=== PATIENT | female | born 1950 | race Caucasian/White ===

== ENCOUNTER → 2017-02-20 | Day surgery (SDC) | payer BC ==
[~2017-02-20] VITALS: Ht 172.7 cm; Wt 143.8 kg
[~2017-02-20] MED LIST: ACETAZOLAMIDE250 MG PO; ASPIRIN325 MG PO; Apixaban PO; BACTRIM DS TAB1 EACH PO; COMBIVENT RESPIM4 GM IH; EDARBI40 MG PO; FENTANYL CITRATE/PF 100MCG/2 ML INJ ONE; FLECAINIDE ACE100 MG PO; FUROSEMIDE40 MG PO; GLIMEPIRIDE4 MG PO; HEPARIN SOD/SOD CHLORIDE 2,000 ML ONE; HYDRALAZINE HCL50 MG PO; IOPAMIDOL 370 MG/ML 200 ML INFUS..BTL INJ ONE; KEFLEX500 MG PO; LIDOCAINE HCL 2% LOCAL 20 ML VIAL ONE; LISINOPRIL10 MG PO; METOPROLOL TART50 MG PO; MIDAZOLAM HCL 2 MG/2 ML VIAL ONE; PANTOPRAZOLE SO40 MG PO; POTASSIUM CHLO20 ME1 PO; SODIUM CHLORIDE 0.9% 500ML 500 ML ONE; THEOPHYLLINE A200 MG PO; Z.0.MACROBID 100 M10 MT; [UNRECOGNIZED DRUG - OTHER] MT
[2017-02-20 09:01] VITALS: BP 144/66
[2017-02-20 10:38] VITALS: BP 132/60
--- NOTE | 2017-03-03 14:13 | Diagnostic Imaging Report ---
PROCEDURE:IVC filter retrieval. COMPARISON:None. INDICATIONS:IVC filter. FINDINGS:The right neck was prepped and draped in the usual sterile fashion. 1% lidocaine was infused into the subcutaneous tissues for local anesthesia. Utilizing direct sonographic guidance, a 21 gauge needle was advanced into the right internal jugular vein. A 0.08 inch wire was advanced centrally. An access sheath was placed over the wire to secure the vascular access. The wire was upsized to a 0.035 inch wire. A catheter was advanced over the wire. The catheter was advanced into the inferior vena cava utilizing fluoroscopic guidance. A digital subtraction venogram was performed. No thrombus was noted within the inferior vena cava. A sheath was placed over the wire. A snare catheter was utilized to snare the inferior vena cava filter. Snaring and removal of the filter was performed under direct fluoroscopic guidance. Physical evaluation of the catheter demonstrated an intact IVC filter. A venogram was performed after the filter was removed. No extravasation of contrast was noted. The sheath was removed. Hemostasis was obtained with manual compression. A sterile dressing was applied. No immediate complications. The patient tolerated the procedure well. The patient was transferred to the post procedure area in stable unchanged condition for further monitoring. CONCLUSION: Successful removal of the inferior vena cava filter utilizing ultrasound and fluoroscopic guidance. Dictated by: Johnny Kaufman M.D. on 03/03/2017 at 14:22 Electronically approved by: Johnny Kaufman M.D. on 03/03/2017 at 14:22
== END | disposition home or self-care (01) ==
LOC: CATH LAB 07:54 → EDSTATUS 10:00
PROVIDERS: ATTEND Radiology Diagnostic Radiology
DX: Z45.89 Encounter for adjustment and management of other implanted devices (principal); I26.99 Other pulmonary embolism without acute cor pulmonale
CPT/HCPCS: 36415; 37193; 77002; 82948; C1769; J2001; J2250; J7040; Q9967; 36010

== ENCOUNTER 2017-12-02 15:19 | Inpatient (IN) | payer MEDICARE, BC ==
[~2017-12-02] VITALS: Ht 172.7 cm; Wt 132.9 kg
[2017-12-02] MEDS: ALBUTEROL/IPRATROPIUM 3 ML NEB NEB SCH (00:20)
[~2017-12-02 15:19] MED LIST changes: -FENTANYL CITRATE/PF 100MCG/2 ML INJ ONE; -HEPARIN SOD/SOD CHLORIDE 2,000 ML ONE; -IOPAMIDOL 370 MG/ML 200 ML INFUS..BTL INJ ONE; -LIDOCAINE HCL 2% LOCAL 20 ML VIAL ONE; -MIDAZOLAM HCL 2 MG/2 ML VIAL ONE; -SODIUM CHLORIDE 0.9% 500ML 500 ML ONE
[2017-12-02 17:07] LABS: BASOPHILS % 0.3 % (0.0-1.0); EOSINOPHILS # (AUTO) 0.1 (0.0-0.4); EOSINOPHILS % 1.8 % (0.0-6.0); HEMATOCRIT 39.2 % (34.2-44.1); HEMOGLOBIN 11.1 g/dL (12.0-16.0); LYMPHOCYTES # (AUTO) 0.6 (1.0-3.2); LYMPHOCYTES % 8.8 % (18.0-39.1); MEAN CORPUSCULAR HEMOGLOBIN 24.8 pg (28-32); MEAN CORPUSCULAR HGB CONC 28.3 g/dL (31-35); MEAN CORPUSCULAR VOLUME 87.7 fL (81-99); MONOCYTES % 15.3 % (4.4-11.3); NEUTROPHILS # (AUTO) 4.6 (2.1-6.9); NEUTROPHILS % 73.5 % (38.7-80.0); PLATELET COUNT 170 x10e3/uL (140-360); RED BLOOD COUNT 4.47 x10e6/uL (3.6-5.1); RED CELL DISTRIBUTION WIDTH 15.5 % (11.7-14.4)
[2017-12-02 17:28] LABS: ALBUMIN 3.6 g/dL (3.5-5.0); ANION GAP 14.5 mmol/L (8-16); CALCIUM 9.4 mg/dL (8.4-10.2); CREATININE, SERUM 1.19 mg/dL (0.57-1.11); POTASSIUM 4.5 mmol/L (3.5-5.1)
[2017-12-02] MEDS ORDERED: SODIUM CHLORIDE FLUSH 10 ML SYR INJ PRN (17:45)
[2017-12-02] MEDS ORDERED: FUROSEMIDE INJ 10 MG/ML 4 ML VIAL IV ONE (17:45)
[2017-12-02] MEDS ORDERED: ASPIRIN 81 MG CHEW TAB PO ONE (17:45)
[2017-12-02] MEDS ORDERED: ALBUTEROL/IPRATROPIUM 3 ML NEB NEB ONE (17:45)
[2017-12-02 18:28] LABS: CREATINE KINASE MB 0.9 ng/mL (0-5.0)
[2017-12-02] MEDS ORDERED: ENOXAPARIN SOD INJ 40 MG/0.4 ML SYR SC SCH (18:30)
--- NOTE | 2017-12-02 18:33 | Diagnostic Imaging Report ---
EXAMINATION: PA and lateral views of the chest. COMPARISON: None CLINICAL HISTORY: Pneumonia cough DISCUSSION: Lines/tubes: None. Lungs: Consolidation versus nodule in the right midlung measuring 2.2 cm. Pleura: Central pulmonary venous congestion. Heart and mediastinum: Heart size enlarged. Bones and soft tissues: No acute bony abnormalities. Degenerative changes in the thoracic spine IMPRESSION: Focal pneumonia versus nodule right midlung. Follow-up imaging recommended after treatment. Mild cardiomegaly. Signed by: Dr. Alexander Carrillo M.D. on 12/02/2017 6:30 PM
[2017-12-02] MEDS: CEFTAROLINE FOSAMIL ACETATE 400 MG in SODIUM CHLORIDE 0.9% 250ML 250 ML IV SCH (18:45)
[2017-12-02 19:26] LABS: BILIRUBIN,URINE NEGATIVE (NEGATIVE); CLARITY,URINE SL CLOUDY (CLEAR); COLOR,URINE YELLOW (YELLOW); KETONES,URINE NEGATIVE (NEGATIVE); LEUKOCYTE ESTERASE ,URINE TRACE (NEGATIVE); NITRITE,URINE NEGATIVE (NEGATIVE); PROTEIN,URINE DIPSTICK TRACE (NEGATIVE); URINE UROBILINOGEN 0.2 mg/dL (0.2 - 1)
[2017-12-02 19:32] LABS: INR 1.16; PROTHROMBIN TIME 15.8 seconds (11.9-14.5)
[2017-12-02 19:33] LABS: PARTIAL THROMBOPLASTIN TIME 31.9 seconds (23.8-35.5)
[2017-12-02 19:43] LABS: BACTERIA,URINE MODERATE /HPF; EPITHELIAL CELLS,URINE MODERATE /LPF; TRANSITIONAL EPI CELLS,URINE FEW
[2017-12-02 21:40] VITALS: BP 146/65
[2017-12-02 22:00] VITALS: BP 146/65
[2017-12-03] VITALS (8 sets, daily range): BP systolic 119–168; BP diastolic 56–70
[2017-12-03 01:19] LABS: CREATINE KINASE 40 IU/L (29-168)
[2017-12-03] MEDS ORDERED: POTASSIUM CHLO10 MEQ PO (03:16)
[2017-12-03] MEDS ORDERED: CIPRO500 MG PO (03:21)
[2017-12-03] MEDS: ALBUTEROL/IPRATROPIUM 3 ML NEB NEB SCH ×6 (03:30→22:55)
[2017-12-03 05:28] LABS: ALBUMIN 3.3 g/dL (3.5-5.0); ALBUMIN/GLOBULIN RATIO 1.1 (0.8-2.0); ANION GAP 13.7 mmol/L (8-16); CALCIUM 8.9 mg/dL (8.4-10.2); CREATININE, SERUM 1.17 mg/dL (0.57-1.11); POTASSIUM 3.7 mmol/L (3.5-5.1)
[2017-12-03 06:07] LABS: CREATINE KINASE MB 0.7 ng/mL (0-5.0)
[2017-12-03 07:23] LABS: BASOPHILS % 0.4 % (0.0-1.0); EOSINOPHILS # (AUTO) 0.1 (0.0-0.4); EOSINOPHILS % 1.8 % (0.0-6.0); HEMATOCRIT 36.1 % (34.2-44.1); HEMOGLOBIN 10.3 g/dL (12.0-16.0); LYMPHOCYTES # (AUTO) 0.6 (1.0-3.2); LYMPHOCYTES % 11.6 % (18.0-39.1); MEAN CORPUSCULAR HEMOGLOBIN 24.8 pg (28-32); MEAN CORPUSCULAR HGB CONC 28.5 g/dL (31-35); MONOCYTES % 17.8 % (4.4-11.3); NEUTROPHILS # (AUTO) 3.7 (2.1-6.9); PLATELET COUNT 130 x10e3/uL (140-360); RED BLOOD COUNT 4.15 x10e6/uL (3.6-5.1); RED CELL DISTRIBUTION WIDTH 15.8 % (11.7-14.4)
[2017-12-03] MEDS: FUROSEMIDE 40 MG TAB PO SCH (08:21)
[2017-12-03] MEDS: APIXABAN 5 MG TABLET PO SCH ×2 (08:21→17:00)
[2017-12-03] MEDS: POTASSIUM CHLORIDE 10MEQ EA PO SCH (08:21)
[2017-12-03] MEDS: METOPROLOL TARTRATE 50 MG TAB PO SCH ×2 (08:21→16:53)
[2017-12-03 08:33] LABS: HYPOCHROMASIA MODERATE; PLATELET ESTIMATE ADEQUATE; PLATELET MORPHOLOGY COMMENT NORMAL; RBC MORPHOLOGY COMMENT NORMAL
[2017-12-03] MEDS ORDERED: AZILSARTAN MEDOXOMIL 40 MG PO SCH (09:00)
[2017-12-03] MEDS ORDERED: NON-FORMULARY MEDICATION ([Apixaban] 5 MG) PO SCH (09:00)
[2017-12-03] MEDS: FLECAINIDE ACETATE 100 MG TAB PO SCH ×2 (09:21→22:02)
[2017-12-03] MEDS ORDERED: SODIUM CHLORIDE 0.9% 250ML 250 ML ONE (09:55)
[2017-12-03] MEDS: CEFTAROLINE FOSAMIL ACETATE 400 MG in SODIUM CHLORIDE 0.9% 250ML 250 ML IV SCH ×2 (10:06→21:00)
--- NOTE | 2017-12-03 12:36 | Diagnostic Imaging Report ---
EXAM: XR CHEST 2 VIEWS DATE: 12/03/2017 5:00 AM INDICATION: Pneumonia COMPARISON: 12/02/2017, no report available FINDINGS: Lines and Tubes: None Heart and Mediastinum: The heart is prominent. Lungs and Pleura: Minimal opacities present lung bases, asymmetric to the left, with small left effusion. Superimposed nodular opacity right midlung. Bones and Soft Tissues: No acute findings. IMPRESSION: 1. Minimal asymmetric to the left basilar opacities with small left effusion and nodular opacity right midlung. Findings may correspond with clinical history of pneumonia. Given nodularity of density right midlung, close radiographic follow-up recommended as pulmonary nodule not excluded. Signed by: Dr. Jesús Lilly MD on 12/03/2017 12:32 PM
[2017-12-03] MEDS: AZILSARTAN MEDOXOMIL 40 MG PO SCH (22:00)
[2017-12-04] VITALS (7 sets, daily range): BP systolic 122–155; BP diastolic 57–69
[2017-12-04] MEDS: ALBUTEROL/IPRATROPIUM 3 ML NEB NEB SCH ×6 (02:45→23:20)
[2017-12-04] MEDS: FLECAINIDE ACETATE 100 MG TAB PO SCH ×2 (08:30→20:00)
[2017-12-04] MEDS: BALSAM PERU/CASTOR OIL 5 GM OINT...G. TP SCH (09:00)
[2017-12-04] MEDS: APIXABAN 5 MG TABLET PO SCH (09:01)
[2017-12-04] MEDS: FUROSEMIDE 40 MG TAB PO SCH (09:01)
[2017-12-04] MEDS: CEFTAROLINE FOSAMIL ACETATE 400 MG in SODIUM CHLORIDE 0.9% 250ML 250 ML IV SCH ×2 (09:01→21:54)
[2017-12-04] MEDS: POTASSIUM CHLORIDE 10MEQ EA PO SCH (09:01)
[2017-12-04] MEDS: METOPROLOL TARTRATE 50 MG TAB PO SCH ×2 (09:02→17:12)
[2017-12-04] MEDS: AZILSARTAN MEDOXOMIL 40 MG PO SCH (21:54)
[2017-12-05] VITALS (7 sets, daily range): BP systolic 105–152; BP diastolic 52–67
[2017-12-05] MEDS: ALBUTEROL/IPRATROPIUM 3 ML NEB NEB SCH ×6 (03:30→23:20)
[2017-12-05] MEDS: AZITHROMYCIN 500MG/NS 250 ML 250 ML IV SCH (06:23)
[2017-12-05] MEDS: FUROSEMIDE 40 MG TAB PO SCH (09:14)
[2017-12-05] MEDS: POTASSIUM CHLORIDE 10MEQ EA PO SCH (09:14)
[2017-12-05] MEDS: FLECAINIDE ACETATE 100 MG TAB PO SCH ×2 (09:14→20:00)
[2017-12-05] MEDS: APIXABAN 5 MG TABLET PO SCH (09:14)
[2017-12-05] MEDS: CEFTAROLINE FOSAMIL ACETATE 400 MG in SODIUM CHLORIDE 0.9% 250ML 250 ML IV SCH ×2 (09:14→21:24)
[2017-12-05] MEDS: BALSAM PERU/CASTOR OIL 5 GM OINT...G. TP SCH (09:14)
[2017-12-05] MEDS ORDERED: BENZONATATE 100 MG CAP PO PRN (10:45)
[2017-12-05] MEDS: METOPROLOL TARTRATE 50 MG TAB PO SCH ×2 (12:00→16:53)
[2017-12-05] MEDS: AZILSARTAN MEDOXOMIL 40 MG PO SCH (21:00)
[2017-12-05] MEDS ORDERED: SODIUM CHLORIDE 0.9% 250ML 250 ML ONE (21:23)
[2017-12-06 00:27] VITALS: BP 124/59
[2017-12-06] MEDS: ALBUTEROL/IPRATROPIUM 3 ML NEB NEB SCH ×6 (02:57→23:09)
[2017-12-06 05:39] VITALS: BP 133/66
[2017-12-06] MEDS: AZITHROMYCIN 500MG/NS 250 ML 250 ML IV SCH (05:44)
[2017-12-06 08:00] VITALS: BP 135/61
[2017-12-06] MEDS: FLECAINIDE ACETATE 100 MG TAB PO SCH ×2 (09:01→21:00)
[2017-12-06] MEDS: FUROSEMIDE INJ 10 MG/ML 4 ML VIAL IV SCH ×2 (09:01→21:10)
[2017-12-06] MEDS: APIXABAN 5 MG TABLET PO SCH (09:01)
[2017-12-06] MEDS: BALSAM PERU/CASTOR OIL 5 GM OINT...G. TP SCH (09:02)
[2017-12-06] MEDS: POTASSIUM CHLORIDE 10MEQ EA PO SCH (09:02)
[2017-12-06] MEDS: METOPROLOL TARTRATE 50 MG TAB PO SCH ×2 (09:02→17:03)
[2017-12-06] MEDS: CEFTAROLINE FOSAMIL ACETATE 400 MG in SODIUM CHLORIDE 0.9% 250ML 250 ML IV SCH ×2 (10:02→21:10)
[2017-12-06 12:00] VITALS: BP 132/63
[2017-12-06 16:00] VITALS: BP 124/56
[2017-12-06 20:00] VITALS: BP 144/59
[2017-12-06] MEDS: AZILSARTAN MEDOXOMIL 40 MG PO SCH (21:10)
[2017-12-07] VITALS (7 sets, daily range): BP systolic 116–144; BP diastolic 56–75
[2017-12-07] MEDS: ALBUTEROL/IPRATROPIUM 3 ML NEB NEB SCH ×6 (02:21→23:17)
[2017-12-07 05:07] LABS: BASOPHILS % 0.6 % (0.0-1.0); EOSINOPHILS # (AUTO) 0.2 (0.0-0.4); EOSINOPHILS % 3.3 % (0.0-6.0); HEMATOCRIT 35.1 % (34.2-44.1); HEMOGLOBIN 10.1 g/dL (12.0-16.0); LYMPHOCYTES # (AUTO) 0.6 (1.0-3.2); LYMPHOCYTES % 11.1 % (18.0-39.1); MEAN CORPUSCULAR HEMOGLOBIN 25.1 pg (28-32); MEAN CORPUSCULAR HGB CONC 28.8 g/dL (31-35); MEAN CORPUSCULAR VOLUME 87.1 fL (81-99); MONOCYTES # (AUTO) 0.7 (0.2-0.8); MONOCYTES % 13.3 % (4.4-11.3); NEUTROPHILS # (AUTO) 3.7 (2.1-6.9); NEUTROPHILS % 71.5 % (38.7-80.0); PLATELET COUNT 143 x10e3/uL (140-360); RED BLOOD COUNT 4.03 x10e6/uL (3.6-5.1); RED CELL DISTRIBUTION WIDTH 15.6 % (11.7-14.4)
[2017-12-07 05:30] LABS: ANION GAP 15.1 mmol/L (8-16); CALCIUM 8.9 mg/dL (8.4-10.2); CREATININE, SERUM 1.13 mg/dL (0.57-1.11); POTASSIUM 4.1 mmol/L (3.5-5.1)
[2017-12-07] MEDS: AZITHROMYCIN 500MG/NS 250 ML 250 ML IV SCH (05:33)
--- NOTE | 2017-12-07 08:26 | Diagnostic Imaging Report ---
EXAM: XR CHEST 2 VIEWS DATE: 12/07/2017 7:11 AM INDICATION: Pneumonia, CHF COMPARISON: 12/03/2017, no report available FINDINGS: Lines and Tubes: None Heart and Mediastinum: Heart enlarged. Aortic vascular calcifications. Lungs and Pleura: Bibasilar opacities suggesting atelectasis, edema, and/or pneumonia, slightly progressed, particularly on the right. Bones and Soft Tissues: No acute findings. IMPRESSION: 1. Bibasilar opacities as above, slightly worse on the right. Signed by: Dr. Jesús Lilly MD on 12/07/2017 8:23 AM
[2017-12-07] MEDS: APIXABAN 5 MG TABLET PO SCH (09:11)
[2017-12-07] MEDS: METOPROLOL TARTRATE 50 MG TAB PO SCH ×2 (09:11→16:24)
[2017-12-07] MEDS: POTASSIUM CHLORIDE 10MEQ EA PO SCH (09:11)
[2017-12-07] MEDS: BALSAM PERU/CASTOR OIL 5 GM OINT...G. TP SCH (09:11)
[2017-12-07] MEDS: FUROSEMIDE INJ 10 MG/ML 4 ML VIAL IV SCH ×2 (09:11→20:46)
[2017-12-07] MEDS: CEFTAROLINE FOSAMIL ACETATE 400 MG in SODIUM CHLORIDE 0.9% 250ML 250 ML IV SCH ×2 (09:11→20:46)
[2017-12-07] MEDS: FLECAINIDE ACETATE 100 MG TAB PO SCH ×3 (09:11→20:46)
[2017-12-07] MEDS: GUAIFENESIN 600 MG TAB PO SCH ×3 (11:21→23:55)
[2017-12-07] MEDS: AZILSARTAN MEDOXOMIL 40 MG PO SCH (20:46)
[2017-12-07] MEDS ORDERED: SODIUM CHLORIDE 0.9% 250ML 250 ML ONE (21:01)
[2017-12-08] VITALS (8 sets, daily range): BP systolic 114–143; BP diastolic 56–75
[2017-12-08] MEDS: ALBUTEROL/IPRATROPIUM 3 ML NEB NEB SCH ×6 (03:20→23:30)
[2017-12-08] MEDS: GUAIFENESIN 600 MG TAB PO SCH ×4 (05:13→23:37)
[2017-12-08] MEDS: AZITHROMYCIN 500MG/NS 250 ML 250 ML IV SCH (05:13)
[2017-12-08 06:00] LABS: ANION GAP 13.2 mmol/L (8-16); CREATININE, SERUM 1.29 mg/dL (0.57-1.11); POTASSIUM 4.2 mmol/L (3.5-5.1)
[2017-12-08] MEDS ORDERED: ACETYLCYSTEINE 20% INHAL SOLN 30 ML VIAL INH SCH (06:00)
[2017-12-08] MEDS: ACETYLCYSTEINE 20% INHAL SOLN 30 ML VIAL INH SCH ×3 (07:23→23:30)
[2017-12-08] MEDS: FLECAINIDE ACETATE 100 MG TAB PO SCH ×2 (08:26→21:26)
[2017-12-08] MEDS: APIXABAN 5 MG TABLET PO SCH (08:27)
[2017-12-08] MEDS: POTASSIUM CHLORIDE 10MEQ EA PO SCH (08:27)
[2017-12-08] MEDS: METOPROLOL TARTRATE 50 MG TAB PO SCH ×2 (08:27→16:51)
[2017-12-08] MEDS: CEFTAROLINE FOSAMIL ACETATE 400 MG in SODIUM CHLORIDE 0.9% 250ML 250 ML IV SCH ×2 (08:31→21:26)
[2017-12-08] MEDS: BALSAM PERU/CASTOR OIL 5 GM OINT...G. TP SCH (08:40)
[2017-12-08] MEDS: ACETAMINOPHEN 325 MG TAB PO PRN (15:51)
[2017-12-08] MEDS: AZILSARTAN MEDOXOMIL 40 MG PO SCH (21:26)
[2017-12-09] VITALS (8 sets, daily range): BP systolic 113–155; BP diastolic 54–71
[2017-12-09] MEDS: ALBUTEROL/IPRATROPIUM 3 ML NEB NEB SCH ×6 (03:25→23:25)
[2017-12-09] MEDS: AZITHROMYCIN 500MG/NS 250 ML 250 ML IV SCH (05:08)
[2017-12-09] MEDS: GUAIFENESIN 600 MG TAB PO SCH ×3 (06:09→17:08)
[2017-12-09] MEDS: ACETYLCYSTEINE 20% INHAL SOLN 30 ML VIAL INH SCH ×3 (07:42→23:25)
[2017-12-09] MEDS: FLECAINIDE ACETATE 100 MG TAB PO SCH ×2 (09:01→20:55)
[2017-12-09] MEDS: APIXABAN 5 MG TABLET PO SCH (09:02)
[2017-12-09] MEDS: POTASSIUM CHLORIDE 10MEQ EA PO SCH (09:02)
[2017-12-09] MEDS: METOPROLOL TARTRATE 50 MG TAB PO SCH ×2 (09:03→17:09)
[2017-12-09] MEDS: BALSAM PERU/CASTOR OIL 5 GM OINT...G. TP SCH (09:03)
[2017-12-09] MEDS: CEFTAROLINE FOSAMIL ACETATE 400 MG in SODIUM CHLORIDE 0.9% 250ML 250 ML IV SCH (09:07)
--- OUTSIDE RECORDS SUMMARY | 2017-12-09 12:25 | XMS REPORT ---
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 Name Role Phone MAXINE JACOBS Unavailable Unavailable BAKARI MELENDEZ Unavailable Unavailable Problems This patient has no known problems. Allergies, Adverse Reactions, Alerts This patient has no known allergies or adverse reactions. Medications This patient has no known medications. Results Test Description Test Time Test Comments Text Results Atomic Results Result Comments CHEST 2 VIEWS 2017-12-07 08:22:00 [facility] [address] [address] Patient Name: MICHAEL GAMBINO MR #: [id number] : 1950 Age/Sex: 66/F Req #: [id number] [facility] Physician: MAXINE JACOBS MD Ordered by: WERO ADRIAN MD Report #: [id number] Location: [facility] Room/Bed: [facility] [place] Procedure: [id number] DX/CHEST 2 VIEWS Exam Date: Exam Time: REPORT STATUS: Signed EXAM: XR CHEST 2 VIEWS DATE: 12/07/2017 7:11 AM INDICATION: Pneumonia, CHF COMPARISON: 12/03/2017, no report available FINDINGS: Lines and Tubes: None Heart and Mediastinum: Heart enlarged. Aortic vascular calcifications. Lungs and Pleura: Bibasilar opacities suggesting atelectasis, edema, and/or pneumonia, slightly progressed, particularly on the right. Bones and Soft Tissues: No acute f indings. IMPRESSION: 1. Bibasilar opacities as above, slightly worse on the right. Signed by: Dr. Suni Lilly MD on 12/07/2017 8:23 AM Dictated By: SUNI LILLY MD 2 Transcribed By: OBDULIA on 12/07/17822 COPY TO: WERO ADRIAN MD CHEST 2 VIEWS 2017-12-03 12:31:[address] [address] Patient Name: MICHAEL GAMBINO MR #: [id number] : 1950 Age/Sex: 66/F Req #: [id number] Adm Physician: MAXINE JACOBS MD Ordered by: LENA PRICE MD Report #: [id number] Location: MED/SURG2 Room/Bed: [facility] Procedure: [id number] DX/CHEST 2 VIEWS Exam Date: 12/03/17 Exam Time: 1130 REPORT STATUS: Signed EXAM: XR CHEST 2 VIEWS DATE: 12/03/2017 5:00 AM INDICATION: Pneumonia COMPARISON: 12/02/2017, no report available FINDINGS: Lines and Tubes: None Heart and Mediastinum: The heart is prominent. Lungs and Pleura: Minimal opacities present lung bases, asymmetric to the left, with small left effusion. Superimposed nodular opacity right midlung. Bones and Soft Tissues: No acute findings. IMPRESSION: 1. Minimal asymmetric to the left basilar opacities with small left effusion and nodular opacity right midlung. Findings may correspond with clinical history of pneumonia. Given nodularity of density right midlung, close radiographic follow-up recommended as pulmonary nodule not excluded. Signed by: Dr. Suni Lilly MD on 12/03/2017 12:32 PM Dictated By: SUNI LILLY MD 31 Transcribed By: OBDULIA on 12/03/171231 COPY TO: LENA PRICE MD CHEST 2 VIEWS 2017-12-02 18:28:00 [address] [place] [address] Patient Name: MICHAEL GAMBINO MR #: [id number] : 1950 Age/Sex: 66/F Req #: [id number] Adm Physician: Ordered by: LENA PRICE MD Report #: [id number] Location: ER Room/Bed: Procedure: [id number] DX/CHEST 2 VIEWS Exam Date: 12/02/17 Exam Time: 1730 REPORT STATUS: Signed EXAMINATION: PA and lateral views of the chest. COMPARISON: None CLINICAL HISTORY: Pneumonia cough DISCUSSION: Lines/tubes: None. Lungs: Consolidation versus nodule in the right midlung measuring 2.2 cm. Pleura: Central pulmonary venous congestion. Heart and mediastinum: Heart size enlarged. Bones and soft tissues: No acute bony abnormalities. Degenerative changes in the thoracic spine IMPRESSION: Focal pneumonia versus nodule right midlung. Follow-up imaging recommended after treatment. Mild cardiomegaly. Signed by: Dr. Sherrie Al M.D. on 12/02/2017 6:30 PM Dictated By: SHERRIE AL MD 29 Transcribed By: OBDULIA on 12/02/171829 COPY TO: LENA PRICE MD SPECIAL PROCEDURE IN VARIETY LATHE OPERATOR [id number] [address] Patient Name: MICHAEL GAMBINO MR #: [id number] : 1950 Age/Sex: 66/F [id number] Req #: [id number] Adm Physician: Ordered by: MILAGROS ATWOOD MD Report #: [id number] Location: VARIETY LATHE OPERATOR Room/Bed: Procedure: [id number] IR/SPECIAL PROCEDURE IN VARIETY LATHE OPERATOR Exam Date: Exam Time: REPORT STATUS: Signed PROCEDURE: IVC filter retrieval. COMPARISON: None. INDICATIONS: IVC filter. FINDINGS: The right neck was prepped and draped in the usual sterile fashion. 1% lidocaine was infused into the subcutaneous tissues for local anesthesia. Utilizing direct sonographic guidance, a 21 gauge needle was advanced into the right internal jugular vein. A 0.08 inch wire was advanced centrally. An access sheath was placed over the wire to secure the vascular access. The wire was upsized to a 0.035 inch wire. A catheter was advanced over the wire. The catheter was advanced into the inferior vena cava utilizing fluoroscopic guidance. A digital subtraction venogram was performed. No thrombus was noted within the inferior vena cava. A sheath was placed over the wire. A snare catheter was util ized to snare the inferior vena cava filter. Snaring and removal of the filter was performed under direct fluoroscopic guidance. Physical evaluation of the catheter demonstrated an intact IVC filter. A venogram was performed after the filter was removed. No extravasation of contrast was noted. The sheath was removed. Hemostasis was obtained with manual compression. A sterile dressing was applied. No immediate complications. The patient tolerated the procedure well. The patient was transferred to the post procedure area in stable unchanged condition for further monitoring. CONCLUSION: Successful removal of the inferior vena cava filter utilizing ultrasound and fluoroscopic guidance. Dictated by: Bakari Melendez M.D. on 03/03/2017 at 14:22 Electronically approved by: Bakari Melendez M.D. on 03/03/2017 at 14:22 Dictated By: BAKARI MELENDEZ MD 1422 Transcribed By: MEREDITH on 03/03/17 1422 COPY TO: MILAGROS ATWOOD MD CHEST 2 VIEWS [place] [address] Patient Name: MICHAEL GAMBINO MR #: [id number] : 1950 Age/Sex: 65/F Req #: [id number] Adm Physician: MAXINE JACOBS MD Ordered by: MILAGROS ATWOOD MD Report #: [id number] Location: ICU Room/Bed: ICU [facility] Procedure: [id number] DX/CHEST 2 VIEWS Exam Date: 11/25/16 Exam Time: 0955 REPORT STATUS: Signed PROCEDURE: Frontal and lateral views of the chest. COMPARISON: Portable chest 11/23/2016. INDICATIONS: PULMONARY EDEMA FINDINGS: Lines/tubes: None. Lungs: The lungs are well inflated and clear. There is no evidence of pneumonia or pulmonary edema. Bibasilar atelectasis. Pleura: There is no pleural effusion or pneumothorax. Heart and mediastinum: The heart and the mediastinum are normal. Atherosclerotic calcifications. Bones: No acute bony abnormality. Degenerative changes of the thoracic spine. IMPRESSION: No acute radiographic abnormality. Dictated by: Bakari Melendez M.D. on 11/25/2016 at 10:42 Electronically approved by: Bakari Melendez M.D. on 11/25/2016 at 10:42 Dictated By: BAKARI MELENDEZ MD 1042 Transcribed By: MEREDITH on 11/25/16 104 COPY TO: MILAGROS ATWOOD MD CHEST SINGLE (PORTABLE) [address] [place] [address] Patient Name: MICHAEL GAMBINO MR #: [id number] : 1950 Age/Sex: 65/F Req #: [id number] Adm Physician: MAXINE JACOBS MD Ordered by: MILAGROS ATWOOD MD Report #: [id number] Location: ICU Room/Bed: ICU [facility] Procedure: [id number] DX/CHEST SINGLE (PORTABLE) Exam Date: 11/23/16 Exam Time: 0600 REPORT STATUS: Signed EXAMINATION: CHEST SINGLE (PORTABLE) INDICATION: Respiratory failure COMPARISON: 11/14/2016 FINDINGS: TUBES and LINES: Interval placement of endotracheal tube with tip 3.6 cm above the william LUNGS: Lungs are not well inflated. There are bibasilar atelectasis. There is perihilar interstitial opacities, consistent with interstitial edema. Central venous congestion. PLEURA: No pleural effusion or pneumothorax. HEART AND MEDIASTINUM: Cardiac size is moderately enlarged. There are atherosclerotic calcifications within the aorta. BONES AND SOFT TISSUES: No acute osseous lesion. Soft tissues are unremarkable. UPPER ABDOMEN: No free air under the diaphragm. IMPRESSION: Findings are compatible with cardiogenic fluid overload/edema. Signed by: Dr. Rigoberto Oviedo M.D. on 11/23/2016 6:57 AM Dictated By: RIGOBERTO KAT MD Transcribed By: OBDULIA on 11/23/16656 COPY TO: MILAGROS ATWOOD MD SPECIAL PROCEDURE IN VARIETY LATHE OPERATOR [facility] [address] [address] Patient Name: MICHAEL GAMBINO MR #: [id number] : 1950 Age/Sex: 65/F Req #: [id number] Adm Physician: MAXINE JACOBS MD Ordered by: MILAGROS ATWOOD MD Report #: [id number] Location: ICU Room/Bed: [address] [place] [address] Procedure: [id number] IR/SPECIAL PROCEDURE IN VARIETY LATHE OPERATOR Exam Date: Exam Time: REPORT STATUS: Signed IVC filter placement November 21, 2016 Pre- Procedure Diagnosis: Hematochezia; pulmonary embolism Post-procedure Diagnosis:Hematochezia; pulmonary embolism Hospital Pharmacy Director: [facility] Supervisor: None Sedation: None. Heart rate and oxygen saturation were monitored in real-time. Blood pressure was measured in 5 minute increments. 1% lidocaine was used for local anesthesia. Radiation Dose:5411 cGycm2 (Dose Area Product) Fluoroscopy time:0.6 minutes Estimate blood loss: <5 mL Blood administered: None Complications: None Implants/Grafts: Bard Sade retrievable inferior vena cava filter Specimen: None Procedure: Informed consent was obtained and the patient placed supine. A timeout was performed. Preliminary ultrasound of the right internal jugular vein was performed. The right neck was prepped and draped in standard sterile fashion. Using real-time ultrasound guidance a 21-gauge vascular needle was used to access the right internal jugular vein. An image could not be stored in the electronic medical record device limitation. The needle was exchanged for the IVC deployment sheath/flush catheter using standard Seldinger technique. Digital subtraction venogram was performed (see findings below). Inferior vena cava filter was deployed with the hook at the level of the L2 pedicle within the infrarenal inferior vena cava. Filter centering was demonstrated. Confirmation venogram confirmed location and appropriate deployment. The sheath was removed and hemostasis tube with manual compression. Findings: 1. Patent right internal jugular vein as demonstrated by normal ultrasound compressibility. 2. Normal inferior vena cava with a diameter of less than 3 cm. Impression: Successful inferior vena cava filter placement. Recommendations: Inferior vena cava filter should be removed when the patient can be anticoagulated or returns to baseline embolism risk from lower extremity thrombus. This report was generated with voice-recognition technology. Errors in customs compliance analyst can occur. Please interpret accordingly and contact a radiologist if there are any questions regarding the report. Signed by: Dr. Kaylah Gore M.D. on 11/21/2016 12:56 PM Dictated By: KAYLAH GORE MD 122 Transcribed By: OBDULIA on 11/26/16 1222 COPY TO: MILAGROS ATWOOD MD IR CONSULT [place] [address] Patient Name: MICHAEL GAMBINO MR #: [id number] : 1950 Age/Sex: 65/F Req #: [id number] Adm Physician: MAXINE JACOBS MD Ordered by: MILAGROS ATWOOD MD Report #: [id number] Location: ICU Room/Bed: ICU [facility] Procedure: [id number] DX/IR CONSULT Exam Date: Exam Time: REPORT STATUS: Signed IVC filter placement November 21, 2016 Pre-Procedure Diagnosis: Hematochezia; pulmonary embolism Post-procedure Diagnosis:Hematochezia; pulmonary embolism Hospital Pharmacy Director: [facility] Supervisor: None Sedation: None. Heart rate and oxygen saturation were monitored in real-time. Blood pressure was measured in 5 minute increments. 1% lidocaine was used for local anesthesia. Radiation Dose:5411 cGycm2 (Dose Area Product) Fluoroscopy time:0.6 minutes Estimate blood loss: <5 mL Blood administered: None Complications: None Implants/Grafts: Bard Sade retrievable inferior vena cava filter Specimen: None Procedure: Informed consent was obtained and the patient placed supine. A timeout was performed. Preliminary ultrasound of the right internal jugular vein was performed. The right neck was prepped and draped in standard sterile fashion. Using real-time ultrasound guidance a 21-gauge vascular needle was used to access the right internal jugular vein. An image could not be stored in the electronic medical record device limitation. The needle was exchanged for the IVC deployment sheath/flush catheter using standard Seldinger technique. Digital subtraction venogram was performed (see findings below). Inferior vena cava filter was deployed with the hook at the level of the L2 pedicle within the infrarenal inferior vena cava. Filter centering was demonstrated. Confirmation venogram confirmed location and appropriate deployment. The sheath was removed and hemostasis tube with manual compression. Findings: 1. Patent right internal jugular vein as demonstrated by normal ultrasound compressibility. 2. Normal inferior vena cava with a diameter of less than 3 cm. Impression: Successful inferior vena cava filter placement. Recommenda tions: Inferior vena cava filter should be removed when the patient can be anticoagulated or returns to baseline embolism risk from lower extremity thrombus. This report was generated with voice-recognition technology. Errors in customs compliance analyst can occur. Please interpret accordingly and contact a radiologist if there are any questions regarding the report. Signed by: Dr. Kaylah Gore M.D. on 11/21/2016 12:56 PM Dictated By: KAYLAH GORE MD 1222 Transcribed By: OBDULIA on 11/26/16 1222 COPY TO: MILAGROS ATWOOD MD CT ABDOMEN/PELVIS W [place] [address] Patient Name: MICHAEL GAMBINO MR #: [id number] : 1950 Age/Sex: 65/F Req #: [id number] Adm Physician: MAXINE JACOBS MD Ordered by: STACI VILLEGAS MD Report #: [id number] Location: MED/SURG3 Room/Bed: 299-1 Procedure: [id number] CT/CT ABDOMEN/PELVIS W Exam Date: 11/20/16 Exam Time: 1315 REPORT STATUS: Signed EXAM: CT Abdomen and Pelvis WITH contrast INDICATION: COMPARISON: CT dated 05/23/2015 TECHNIQUE: Abdomen and pelvis were scanned utilizing a multidetector helical scanner from the lung base to the pubic symphysis after administration of IV contrast. Coronal and sagittal reformations were obtained. Routine protocol was performed. Scan was performed when during portal venous phase. IV CONTRAST: 100 mL of Isovue-370 ORAL CONTRAST: Gastroview COMPLICATIONS: None RADIATION DOSE: Total DLP: ... mGy*cm Estimated effective dose: (DLP x 0.015 x size factor) mSv CTDIvol has been reviewed. It is below the limits set by the Radiation Protocol Committee (RPC). FINDINGS: LINES and TUBES: None. LOWER THORAX: Bibasilar subsegmental atelectasis. Mildly dilated left atrium. HEPATOBILIARY: No focal hepatic lesions. No biliary ductal dilation. GALLBLADDER: Surgically absent. SPLEEN: Mild splenomegaly. PANCREAS: No focal masses or ductal dilatation. ADRENALS: No adrenal nodules KIDNEYS/URETERS: Atrophic kidneys. No hydronephrosis. Stable 5.9 cm left inferior pole cyst. Unchanged 2.8 cm left superior pole parapelvic cyst. Staghorn left collecting system calculus measuring 1.8 x 2.5 cm (series 301, image 80). There are also multiple right renal calculi, including a 1.8 cm right renal pelvis and 1.3 cm right midpole calculi. GI TRACT: No abnormal distention, wall thickening, or evidence of bowel obstruction. Appendix is normal. PELVIC ORGANS/BLADDER: Unremarkable. LYMPH NODES: Prominent inguinal lymph nodes. 1.6 cm left para-aortic lymph node (series 2, image 26), previously 2 cm. Unchanged iliac lymph nodes, for example a stable 1.4 cm right external iliac lymph node (series 2, image 68). Previously seen dimple mesentery is not as clearly visualized on today's exam. VESSELS: Unremarkable. PERITONEUM / RETROPERITONEUM: No free air or fluid. BONES: Unremarkable. SOFT TISSUES: Anterior lower abdominal skin thickening and significant subcutaneous stranding/edema. There is also a 13.2 x 6.3 cm peripherally enhancing collection (series 2, image 95). IMPRESSION: 1. Anterior lower abdominal skin thickening and significant subcutaneous stranding/edema. There is also a 13.2 cm peripherally enhancing subcutaneous collection, most likely an abscess. 2. Atrophic kidneys with multiple bilateral renal calculi as described above. Signed by: Dr. Ignacio Leyva MD on 11/20/2016 2:41 PM Dictated By: IGNACIO LEYVA MD 144 Transcribed By: OBDULIA on 11/20/16 144 COPY TO: STACI VILLEGAS MD CHEST SINGLE (NOT PORTABLE) [place] [address] Patient Name: MICHAEL GAMBINO MR #: [id number] : 1950 Age/Sex: 65/F Req #: [id number] Adm Physician: Ordered by: ESTEFANY RUBIO NP Report #: [id number] Location: ER Room/Bed: Procedure: [id number] DX/CHEST SINGLE (NOT PORTABLE) Exam Date: 11/14/16 Exam Time: 2049 REPORT STATUS: Signed EXAMINATION: CHEST SINGLE (NOT PORTABLE) INDICATION: COMPARISON: 08/13/2015 FINDINGS: AP view TUBES and LINES: None. LUNGS: Limited by body habitus. Mild central vascular congestion. No focal consolidation. PLEURA: No pleural effusion or pneumothorax. HEART AND MEDIASTINUM: Enlarged cardiac silhouette. Aorta is tortuous. BONES AND SOFT TISSUES: No acute osseous lesion. Soft tissues are unremarkable. UPPER ABDOMEN: No free air under the diaphragm. IMPRESSION: Enlarged cardiac silhouette and mild central vascular congestion, unchanged from prior exam. Signed by: Dr. Ignacio Leyva MD on 11/14/2016 8:59 PM Dictated By: IGNACIO LEYVA MD 58 Transcribed By: OBDULIA on 11/14/162058 COPY TO: ESTEFANY RUBIO NP
[2017-12-09] MEDS: AZILSARTAN MEDOXOMIL 40 MG PO SCH (20:55)
[2017-12-10] VITALS (7 sets, daily range): BP systolic 107–143; BP diastolic 68–93
[2017-12-10] MEDS: GUAIFENESIN 600 MG TAB PO SCH ×4 (00:01→16:00)
[2017-12-10] MEDS: ALBUTEROL/IPRATROPIUM 3 ML NEB NEB SCH ×6 (03:20→23:15)
[2017-12-10] MEDS: AZITHROMYCIN 500MG/NS 250 ML 250 ML IV SCH (05:37)
[2017-12-10] MEDS: ACETYLCYSTEINE 20% INHAL SOLN 30 ML VIAL INH SCH ×3 (07:00→23:15)
[2017-12-10] MEDS: POTASSIUM CHLORIDE 10MEQ EA PO SCH (08:29)
[2017-12-10] MEDS: APIXABAN 5 MG TABLET PO SCH (08:29)
[2017-12-10] MEDS: BALSAM PERU/CASTOR OIL 5 GM OINT...G. TP SCH (08:29)
[2017-12-10] MEDS: FLECAINIDE ACETATE 100 MG TAB PO SCH ×2 (11:50→21:25)
[2017-12-10] MEDS: METOPROLOL TARTRATE 50 MG TAB PO SCH ×2 (11:55→16:00)
[2017-12-10] MEDS: AZILSARTAN MEDOXOMIL 40 MG PO SCH (21:25)
[2017-12-11] VITALS (7 sets, daily range): BP systolic 124–139; BP diastolic 55–72
[2017-12-11] MEDS: GUAIFENESIN 600 MG TAB PO SCH ×4 (00:20→16:37)
[2017-12-11] MEDS: ALBUTEROL/IPRATROPIUM 3 ML NEB NEB SCH ×6 (03:00→23:00)
[2017-12-11] MEDS: AZITHROMYCIN 500MG/NS 250 ML 250 ML IV SCH (05:45)
[2017-12-11] MEDS: ACETYLCYSTEINE 20% INHAL SOLN 30 ML VIAL INH SCH ×3 (06:53→23:00)
[2017-12-11] MEDS: FLECAINIDE ACETATE 100 MG TAB PO SCH ×2 (07:57→20:00)
[2017-12-11] MEDS: APIXABAN 5 MG TABLET PO SCH (07:57)
[2017-12-11] MEDS: BALSAM PERU/CASTOR OIL 5 GM OINT...G. TP SCH (07:58)
[2017-12-11] MEDS: METOPROLOL TARTRATE 50 MG TAB PO SCH ×2 (07:58→16:37)
[2017-12-11] MEDS: POTASSIUM CHLORIDE 10MEQ EA PO SCH (07:58)
--- NOTE | 2017-12-11 08:57 | Diagnostic Imaging Report ---
PROCEDURE: CT CHEST WITHOUT CONTRAST CT scan of the chest WITHOUT intravenous contrast, using standard protocol. TECHNIQUE: The chest was scanned utilizing a multidetector helical scanner from the apex to the level of the adrenal glands. No IV contrast was administered per protocol. Coronal and sagittal multiplanar reformations were obtained. COMPARISON: Report from CT Chest 08/12/17 (images are not available for review at the time of the study). INDICATIONS: Pneumonia FINDINGS: Lines/tubes: None. Lungs and Airways: Diffuse ground glass opacity with interlobular thickening most pronounced in the upper lungs. Scattered consolidative opacities, in the middle lobe and bilateral lower lobes, left greater than right. Dependent linear subsegmental atelectatic changes. Diffuse opacity and motion artifact limits evaluation for lung nodules. A 9 mm subpleural nodular opacity in the right upper lobe on series 3, image 27. Pleura: Likely trace left pleural effusion. Heart and mediastinum: Mildly enlarged paratracheal lymph nodes measuring up to 1.1 cm, likely reactive. No pericardial effusion. Mild cardiomegaly. Coronary atherosclerosis. Pulmonary artery enlargement measuring up to 4.2 cm, suggestive of pulmonary arterial hypertension. Dilated upper and mid esophagus filled with contrast and debris to the level of the thoracic inlet. Calcified subcentimeter thyroid nodule on the right. Abdomen: Limited views of the upper abdomen show no abnormality within the visualized liver or spleen. Status post cholecystectomy. Bones: No acute bony findings. Dextroconvex scoliosis of the thoracic spine. IMPRESSION: Diffuse ground glass opacities with areas of interlobular septal thickening, suggestive of interstitial pulmonary edema. Atypical infection can have a similar appearance. Contrast and debris filled upper esophagus, suggestive of high risk for aspiration. Patchy consolidative opacities at the lung bases, which may represent aspiration or atelectasis in the appropriate clinical context. A 9 mm subpleural nodular opacity in the right upper lobe, likely infectious or inflammatory. A follow-up chest CT is suggested in 2-3 months to assess for resolution. Dictated by: SANTIAGO WHITT M.D. on 12/11/2017 at 9:05 Electronically approved by: SANTIAGO WHITT M.D. on 12/11/2017 at 9:05
--- NOTE | 2017-12-11 19:02 | Consultation ---
DATE OF CONSULTATION: PULMONARY/CRITICAL CARE CONSULTATION REFERRING PHYSICIAN: Dr. Enoch Pelayo. CHIEF COMPLAINT: Cough and congestion. HISTORY OF PRESENT ILLNESS: The patient is a 66-year-old woman. She had colon cancer in late 2016 and required a partial colectomy. She also had a pulmonary embolism perioperatively at that time and has been on Eliquis since then. The patient has a history of some sleep apnea and uses CPAP. About a week ago she went to Dr. Pelayo's office with congestion and coughing. She received antibiotics but had not improved. She was subsequently admitted to the hospital and started on IV antibiotics but continues to have coughing and congestion. She also gives a history of difficulty swallowing. Food sometimes gets stuck in her esophagus when she swallows. She also notes coughing and choking when she eats. PAST SURGICAL HISTORY: 1. Status post partial colectomy. 2. Postoperative wound infection that required debridement and prolonged care. 3. Status post cholecystectomy. 4. Prior hiatal hernia repair. 5. Prior foot surgery. SOCIAL HISTORY: The patient is a nonsmoker. She is not a drinker. PAST MEDICAL HISTORY: 1. Pulmonary embolism. 2. Colon cancer. 3. Noninsulin-dependent diabetes. 4. Atrial fibrillation. ALLERGIES: THERE ARE NO KNOWN DRUG ALLERGIES. REVIEW OF SYSTEMS: The patient has no headache or fevers. She is not having any chest pain. She does not complain of neck pain or sore throat. She does note discomfort with swallowing and some difficulty swallowing. She complains of some cough and congestion. She is not having any abdominal pain. She has no nausea or vomiting. She has no leg edema. PHYSICAL EXAMINATION: VITAL SIGNS: The patient is afebrile. Blood pressure is 129/57, and the pulse is 55. She is on 2 liters of oxygen, and her saturation is 100%. HEENT: Examination shows no facial swelling or erythema. Nasal mucosa is normal. CARDIAC: Exam reveals a regular rate and rhythm with a normal S1 and S2. LUNGS: Auscultation reveals a few wheezes in both lung gonzalez. There is congestion. ABDOMEN: Is soft and nontender. There is no rebound or guarding. EXTREMITIES: Examination shows some chronic leg edema. RADIOGRAPHIC DATA: CT scan of the chest shows diffuse ground-glass opacities and consolidation in the lower lung bases. She also has debris and contrast in the upper esophagus. IMPRESSION: 1. Recurrent aspiration pneumonitis. 2. Esophageal dysmotility. 3. History of hiatal hernia repair. 4. History of pulmonary embolism. 5. History of colon cancer. PLAN: 1. Patient will have an evaluation by Speech Therapy as well as by GI. 2. Continue current antibiotics. 3. Continue bronchodilators. 4. Continue Eliquis because of prior pulmonary embolism. 5. Wean patient off oxygen as tolerated. Job#: [id number] EV
[2017-12-11] MEDS: AZILSARTAN MEDOXOMIL 40 MG PO SCH (21:00)
[2017-12-11] MEDS: PIPER-TAZ 3.375 GM 50 ML IV SCH (21:13)
[2017-12-12] VITALS (7 sets, daily range): BP systolic 106–157; BP diastolic 47–72
[2017-12-12] MEDS: ALBUTEROL/IPRATROPIUM 3 ML NEB NEB SCH ×5 (00:01→15:00)
[2017-12-12] MEDS: GUAIFENESIN 600 MG TAB PO SCH ×4 (00:04→17:03)
[2017-12-12 05:09] LABS: ALBUMIN 3.3 g/dL (3.5-5.0); ALBUMIN/GLOBULIN RATIO 1.1 (0.8-2.0); ANION GAP 13.7 mmol/L (8-16); CALCIUM 9.3 mg/dL (8.4-10.2); CREATININE, SERUM 1.13 mg/dL (0.57-1.11); POTASSIUM 4.7 mmol/L (3.5-5.1)
[2017-12-12] MEDS: PIPER-TAZ 3.375 GM 50 ML IV SCH ×3 (05:52→22:13)
[2017-12-12] MEDS: APIXABAN 5 MG TABLET PO SCH (08:12)
[2017-12-12] MEDS: FUROSEMIDE INJ 10 MG/ML 2 ML VIAL IV SCH ×2 (08:12→16:45)
[2017-12-12] MEDS: FLECAINIDE ACETATE 100 MG TAB PO SCH ×2 (08:12→20:14)
[2017-12-12] MEDS: BALSAM PERU/CASTOR OIL 5 GM OINT...G. TP SCH (08:13)
[2017-12-12] MEDS: POTASSIUM CHLORIDE 10MEQ EA PO SCH (08:13)
[2017-12-12] MEDS: METOPROLOL TARTRATE 50 MG TAB PO SCH ×2 (08:13→16:46)
--- NOTE | 2017-12-12 14:26 | Diagnostic Imaging Report ---
EXAM: Modified barium swallow with Speech Pathologist INDICATION: ^Aspiration pneumonitis COMPARISON: None available. RADIATION DOSE: Fluoroscopy Time: 0.8 min Air Kerma (AK) value has been reviewed. It is below the limits set by the Radiation Protocol Committee (RPC) committee. FINDINGS: Barium was administered by mouth and multiple consistencies by a speech pathologist. Trace laryngeal penetration and aspiration noted with thin liquid, neck or thick liquid, and thick.. IMPRESSION: Laryngeal penetration and aspiration as above. Please see speech pathology report for detailed description and recommendations. Signed by: Dr. Shemar Chen M.D. on 12/12/2017 2:23 PM
--- NOTE | 2017-12-12 15:08 | Consultation ---
DATE OF CONSULTATION: December 12, 2017 This is a 66-year-old female who presented to the hospital because of pneumonia. The patient apparently has been having some problem swallowing. She feels the food kind of gets stuck. She did have a modified barium swallow earlier today, which showed some little laryngeal penetrations. She never had an endoscopy in the past. Her other workup showed that she is kind of anemic with hemoglobin around 10. CMP is okay. She had a CT of the chest that was done yesterday, which also showed some evidence of pulmonary edema, contrast and debris-filled upper esophagus and some lung nodules. Her other medical problems are significant for history of partial colectomy, history of cholecystectomy, prior hiatal hernia repair, history of PE, history of colon cancer, history of diabetes, atrial fibrillation. ALLERGIES: None. CURRENT MEDICATIONS: Include antibiotic, Lopressor, Lasix, Eliquis. SOCIAL HISTORY: No alcohol use. FAMILY HISTORY: Noncontributory. REVIEW OF SYSTEMS: Denies any chest pain or shortness of breath at this point. Denies any nausea, vomiting, or abdominal pain. Denies any dysuria, hematuria or any kind of syncopal episode. PHYSICAL EXAMINATION GENERAL: The patient is awake, alert, appears to be stable, not in acute distress at this point. VITAL SIGNS: Afebrile currently with stable vital signs. HEAD, EYES, EARS, NOSE AND THROAT: Normocephalic and atraumatic. Sclerae are anicteric. NECK: Supple. CARDIAC: Regular. LUNGS: Clear. ABDOMEN: Soft. There is no tenderness at this point. EXTREMITIES: No clubbing. LAB VALUES: BUN and creatinine are normal. Liver enzymes are normal. WBC 5.12, hemoglobin 10. IMPRESSION 1. Dysphagia. 2. Anemia. 3. Atrial fibrillation. 4. Obesity. 5. Pneumonia. RECOMMENDATIONS: Continue current care at this point. Will do an EGD on Friday and hold Eliquis for now. WENDI BOBO MD Job#: [id number] cc:MAXINE JACOBS MD
[2017-12-12] MEDS: AZILSARTAN MEDOXOMIL 40 MG PO SCH (20:14)
[2017-12-13] VITALS: BP 118/62
[2017-12-13] MEDS: ALBUTEROL/IPRATROPIUM 3 ML NEB NEB SCH ×6 (03:46→23:17)
[2017-12-13 04:00] VITALS: BP 137/65
[2017-12-13] MEDS: PIPER-TAZ 3.375 GM 50 ML IV SCH ×3 (05:40→22:01)
[2017-12-13] MEDS: GUAIFENESIN 600 MG TAB PO SCH ×4 (06:00→17:47)
[2017-12-13] MEDS: FUROSEMIDE INJ 10 MG/ML 2 ML VIAL IV SCH ×2 (08:56→17:47)
[2017-12-13] MEDS: FLECAINIDE ACETATE 100 MG TAB PO SCH ×2 (08:56→20:59)
[2017-12-13] MEDS: METOPROLOL TARTRATE 50 MG TAB PO SCH ×2 (08:57→17:47)
[2017-12-13] MEDS: BALSAM PERU/CASTOR OIL 5 GM OINT...G. TP SCH (08:57)
[2017-12-13] MEDS: POTASSIUM CHLORIDE 10MEQ EA PO SCH (08:57)
[2017-12-13 09:00] VITALS: BP 139/62
[2017-12-13 12:00] VITALS: BP 142/65
[2017-12-13 16:00] VITALS: BP 133/58
[2017-12-13 20:00] VITALS: BP 121/57
[2017-12-13] MEDS: AZILSARTAN MEDOXOMIL 40 MG PO SCH (21:00)
[2017-12-14] VITALS (8 sets, daily range): BP systolic 99–159; BP diastolic 42–70
[2017-12-14] MEDS: GUAIFENESIN 600 MG TAB PO SCH ×5 (00:18→23:39)
[2017-12-14] MEDS: ALBUTEROL/IPRATROPIUM 3 ML NEB NEB SCH ×6 (03:35→23:30)
[2017-12-14] MEDS: PIPER-TAZ 3.375 GM 50 ML IV SCH ×3 (06:24→21:20)
[2017-12-14] MEDS: FLECAINIDE ACETATE 100 MG TAB PO SCH ×2 (09:27→20:54)
[2017-12-14] MEDS: POTASSIUM CHLORIDE 10MEQ EA PO SCH (09:27)
[2017-12-14] MEDS: FUROSEMIDE INJ 10 MG/ML 2 ML VIAL IV SCH ×2 (09:27→17:30)
[2017-12-14] MEDS: METOPROLOL TARTRATE 50 MG TAB PO SCH ×2 (09:28→17:30)
[2017-12-14] MEDS: BALSAM PERU/CASTOR OIL 5 GM OINT...G. TP SCH (09:28)
[2017-12-14] MEDS: AZILSARTAN MEDOXOMIL 40 MG PO SCH (20:54)
[2017-12-15] VITALS: BP 153/67
[2017-12-15] MEDS: ALBUTEROL/IPRATROPIUM 3 ML NEB NEB SCH ×5 (03:00→19:30)
[2017-12-15 04:00] VITALS: BP 146/61
[2017-12-15] MEDS: GUAIFENESIN 600 MG TAB PO SCH ×4 (05:14→23:44)
[2017-12-15] MEDS: PIPER-TAZ 3.375 GM 50 ML IV SCH ×3 (05:14→21:41)
[2017-12-15 05:26] LABS: BASOPHILS % 0.9 % (0.0-1.0); EOSINOPHILS # (AUTO) 0.2 (0.0-0.4); EOSINOPHILS % 4.5 % (0.0-6.0); HEMATOCRIT 33.9 % (34.2-44.1); HEMOGLOBIN 9.8 g/dL (12.0-16.0); LYMPHOCYTES # (AUTO) 0.5 (1.0-3.2); LYMPHOCYTES % 14.8 % (18.0-39.1); MEAN CORPUSCULAR HEMOGLOBIN 24.9 pg (28-32); MEAN CORPUSCULAR HGB CONC 28.9 g/dL (31-35); MEAN CORPUSCULAR VOLUME 86.3 fL (81-99); MONOCYTES # (AUTO) 0.6 (0.2-0.8); MONOCYTES % 18.2 % (4.4-11.3); NEUTROPHILS # (AUTO) 2.2 (2.1-6.9); NEUTROPHILS % 61.3 % (38.7-80.0); PLATELET COUNT 125 x10e3/uL (140-360); RED BLOOD COUNT 3.93 x10e6/uL (3.6-5.1); RED CELL DISTRIBUTION WIDTH 16.5 % (11.7-14.4)
[2017-12-15 05:51] LABS: ALBUMIN 3.1 g/dL (3.5-5.0); ANION GAP 15.1 mmol/L (8-16); CALCIUM 9.3 mg/dL (8.4-10.2); CREATININE, SERUM 0.98 mg/dL (0.57-1.11); POTASSIUM 4.1 mmol/L (3.5-5.1)
[2017-12-15] MEDS: POTASSIUM CHLORIDE 10MEQ EA PO SCH (07:45)
[2017-12-15] MEDS: METOPROLOL TARTRATE 50 MG TAB PO SCH ×2 (07:45→17:45)
[2017-12-15] MEDS: FLECAINIDE ACETATE 100 MG TAB PO SCH ×2 (07:45→20:56)
[2017-12-15 08:00] VITALS: BP 150/79
[2017-12-15] MEDS: BALSAM PERU/CASTOR OIL 5 GM OINT...G. TP SCH (09:13)
[2017-12-15] MEDS: FUROSEMIDE INJ 10 MG/ML 2 ML VIAL IV SCH ×2 (09:35→17:45)
[2017-12-15 12:00] VITALS: BP 167/71
[2017-12-15] MEDS ORDERED: BENZOCAINE/TETRACAINE/BUTAMBEN AERO SPRAY 56 GM CAN ONE (15:45)
[2017-12-15] MEDS ORDERED: ALBUTEROL SULF 0.083% NEB SOLN 3 ML NEB ONE (16:04)
[2017-12-15] MEDS ORDERED: PROPOFOL IV EMULSION 10 MG/ML 20 ML VIAL ONE (18:59)
[2017-12-15] MEDS ORDERED: ESMOLOL HCL 100MG/10ML 10 MG/ML VIAL ONE (18:59)
[2017-12-15 20:00] VITALS: BP 138/78
[2017-12-15] MEDS: AZILSARTAN MEDOXOMIL 40 MG PO SCH (20:57)
[2017-12-15 21:00] VITALS: BP 138/78
[2017-12-15] MEDS: ACETAMINOPHEN 325 MG TAB PO PRN (22:30)
[2017-12-16] VITALS (7 sets, daily range): BP systolic 118–131; BP diastolic 58–68
[2017-12-16] MEDS: ALBUTEROL/IPRATROPIUM 3 ML NEB NEB SCH ×7 (00:05→23:45)
[2017-12-16] MEDS: PIPER-TAZ 3.375 GM 50 ML IV SCH ×3 (05:27→21:30)
[2017-12-16] MEDS: GUAIFENESIN 600 MG TAB PO SCH ×3 (05:28→17:18)
[2017-12-16] MEDS: FUROSEMIDE INJ 10 MG/ML 2 ML VIAL IV SCH ×2 (09:27→17:17)
[2017-12-16] MEDS: APIXABAN 5 MG TABLET PO SCH (09:27)
[2017-12-16] MEDS: BALSAM PERU/CASTOR OIL 5 GM OINT...G. TP SCH (09:27)
[2017-12-16] MEDS: FLECAINIDE ACETATE 100 MG TAB PO SCH ×2 (09:27→21:30)
[2017-12-16] MEDS: PANTOPRAZOLE SOD 40 MG TABEC PO SCH (09:27)
[2017-12-16] MEDS: POTASSIUM CHLORIDE 10MEQ EA PO SCH (09:28)
[2017-12-16] MEDS: METOPROLOL TARTRATE 50 MG TAB PO SCH ×2 (09:28→17:17)
[2017-12-16] MEDS: AZILSARTAN MEDOXOMIL 40 MG PO SCH (21:30)
[2017-12-17] VITALS (7 sets, daily range): BP systolic 126–152; BP diastolic 60–65
[2017-12-17] MEDS: ALBUTEROL/IPRATROPIUM 3 ML NEB NEB SCH ×6 (03:00→23:30)
[2017-12-17] MEDS: PIPER-TAZ 3.375 GM 50 ML IV SCH ×3 (05:17→21:29)
[2017-12-17] MEDS: GUAIFENESIN 600 MG TAB PO SCH ×4 (05:17→17:27)
[2017-12-17] MEDS ORDERED: SODIUM CHLORIDE 0.9% 250ML 250 ML ONE (06:21)
[2017-12-17] MEDS: PANTOPRAZOLE SOD 40 MG TABEC PO SCH (07:30)
[2017-12-17] MEDS: FLECAINIDE ACETATE 100 MG TAB PO SCH ×2 (08:00→21:21)
[2017-12-17] MEDS: FUROSEMIDE INJ 10 MG/ML 2 ML VIAL IV SCH ×2 (09:00→16:25)
[2017-12-17] MEDS: METOPROLOL TARTRATE 50 MG TAB PO SCH ×2 (09:00→16:26)
[2017-12-17] MEDS: BALSAM PERU/CASTOR OIL 5 GM OINT...G. TP SCH (09:00)
[2017-12-17] MEDS: POTASSIUM CHLORIDE 10MEQ EA PO SCH (09:00)
[2017-12-17] MEDS: APIXABAN 5 MG TABLET PO SCH (09:00)
[2017-12-17] MEDS: AZILSARTAN MEDOXOMIL 40 MG PO SCH (21:00)
[2017-12-18] VITALS (8 sets, daily range): BP systolic 138–150; BP diastolic 63–82
[2017-12-18] MEDS: GUAIFENESIN 600 MG TAB PO SCH ×4 (00:01→17:35)
[2017-12-18] MEDS: ALBUTEROL/IPRATROPIUM 3 ML NEB NEB SCH ×5 (03:00→23:05)
[2017-12-18] MEDS: PIPER-TAZ 3.375 GM 50 ML IV SCH ×2 (05:57→14:00)
[2017-12-18] MEDS: PANTOPRAZOLE SOD 40 MG TABEC PO SCH (07:30)
[2017-12-18] MEDS: FLECAINIDE ACETATE 100 MG TAB PO SCH ×2 (08:00→20:36)
[2017-12-18] MEDS: FUROSEMIDE INJ 10 MG/ML 2 ML VIAL IV SCH ×2 (09:00→17:00)
[2017-12-18] MEDS: METOPROLOL TARTRATE 50 MG TAB PO SCH ×2 (09:00→17:00)
[2017-12-18] MEDS: POTASSIUM CHLORIDE 10MEQ EA PO SCH (09:00)
[2017-12-18] MEDS: APIXABAN 5 MG TABLET PO SCH (09:00)
[2017-12-18] MEDS: BALSAM PERU/CASTOR OIL 5 GM OINT...G. TP SCH (09:00)
--- NOTE | 2017-12-18 15:20 | Diagnostic Imaging Report ---
EXAM: XR CHEST 2 VIEWS DATE: 12/18/2017 6:21 AM INDICATION: Pneumonia COMPARISON: Chest radiograph 12/07/[address] 12/11/17. FINDINGS: Lines and Tubes: None Lungs and Pleura: Patchy opacities at the left lung base. Right lung demonstrates no evidence of pneumonia. Possible small left pleural effusion. Heart and Mediastinum: Persistent enlarged cardiomediastinal silhouette. Bones and Soft Tissues: No acute findings. IMPRESSION: Patchy opacities at the left lung base may represent aspiration or pneumonia in the appropriate clinical setting. Follow-up chest radiograph to resolution is suggested. Possible small left pleural effusion. Signed by: Dr. Rosalina See MD on 12/18/2017 3:17 PM
[2017-12-18] MEDS: AZILSARTAN MEDOXOMIL 40 MG PO SCH (21:00)
[2017-12-19] VITALS: BP 135/62
[2017-12-19] MEDS: GUAIFENESIN 600 MG TAB PO SCH ×2 (00:21→05:16)
[2017-12-19] MEDS: ALBUTEROL/IPRATROPIUM 3 ML NEB NEB SCH ×2 (03:02→07:35)
[2017-12-19 04:00] VITALS: BP 124/59
[2017-12-19] MEDS ORDERED: LEVAQUIN500 MG PO (07:42)
[2017-12-19 08:00] VITALS: BP 146/76
[2017-12-19] MEDS: FUROSEMIDE INJ 10 MG/ML 2 ML VIAL IV SCH (08:20)
[2017-12-19] MEDS: PANTOPRAZOLE SOD 40 MG TABEC PO SCH (08:20)
[2017-12-19] MEDS: POTASSIUM CHLORIDE 10MEQ EA PO SCH (08:20)
[2017-12-19] MEDS: APIXABAN 5 MG TABLET PO SCH (08:20)
[2017-12-19] MEDS: FLECAINIDE ACETATE 100 MG TAB PO SCH (08:20)
[2017-12-19] MEDS: BALSAM PERU/CASTOR OIL 5 GM OINT...G. TP SCH (08:21)
[2017-12-19] MEDS: METOPROLOL TARTRATE 50 MG TAB PO SCH (08:21)
--- NOTE | 2018-02-22 13:28 | Discharge Summary ---
DISCHARGE DIAGNOSES 1. Pneumonia. 2. Chronic respiratory failure on home O2. 3. Congestive heart failure. 4. Hypertension. 5. Deep venous thrombosis with pulmonary embolism in the past. HISTORY OF PRESENT ILLNESS AND HOSPITAL COURSE: Patient is a 66-year-old lady who failed outpatient treatment for pneumonia who was then brought in and placed on IV antibiotics and continuation of her home medication. Patient made steady but slow process. She was noticed to have some issues with swallowing so we did a swallow evaluation and it did show some aspiration so she was then started being seen by speech therapy. She was seen by GI and at the time of discharge she was switched over to p.o. antibiotics. Follow up within 1 to 2 weeks and we will continue with her outpatient speech therapy. Please see hospital chart for full details. MAXINE JACOBS MD Job#: [id number] KING
== END 2017-12-19 09:55 | disposition home or self-care (01) | DRG 177 ==
LOC: ER 15:19 → ERHOLD 20:28 → MED/SURG2 21:41
PROVIDERS: ADMIT Internal Medicine; ATTEND Internal Medicine
PROC: 0DB78ZX Excision of Stomach, Pylorus, Via Natural or Artificial Opening Endoscopic, Diagnostic (ICD-10-PCS; principal; 2017-12-15 15:00)
DX: J69.0 Pneumonitis due to inhalation of food and vomit (principal); I50.33 Acute on chronic diastolic (congestive) heart failure; I13.0 Hypertensive heart and chronic kidney disease with heart failure and stage 1 through stage 4 chronic kidney disease, or unspecified chronic kidney disease; J96.11 Chronic respiratory failure with hypoxia; Z68.41 Body mass index [BMI] 40.0-44.9, adult; N18.3 Chronic kidney disease, stage 3 (moderate); I48.91 Unspecified atrial fibrillation; D64.9 Anemia, unspecified; Z85.038 Personal history of other malignant neoplasm of large intestine; E11.22 Type 2 diabetes mellitus with diabetic chronic kidney disease; R13.10 Dysphagia, unspecified; E66.9 Obesity, unspecified; G47.30 Sleep apnea, unspecified; K22.4 Dyskinesia of esophagus; K29.70 Gastritis, unspecified, without bleeding; Z79.01 Long term (current) use of anticoagulants
CPT/HCPCS: 36415; 43239; 71046; 71250; 74230; 80048; 80053; 81001; 82550; 82553; 82948; 83880; 84484; 85025; 85610; 85730; 87040; 88305; 88312; 93005; 93306; 94640; 94660; 99284; J0456; J1650; J1940; J2543; J7050

== ENCOUNTER 2018-01-05 14:00 | Outpatient (RCR) | payer MEDICARE, BC ==
[~2018-01-05 14:00] MED LIST changes: +CIPRO500 MG PO; +LEVAQUIN500 MG PO; +POTASSIUM CHLO10 MEQ PO
== END 2018-01-23 ==
LOC: ST 14:00
PROVIDERS: ATTEND Internal Medicine Critical Care Medicine
DX: R13.13 Dysphagia, pharyngeal phase (principal); I50.9 Heart failure, unspecified
CPT/HCPCS: 92526 ×6; 92610; 97139; G8996; G8997; G9162; G9163

== ENCOUNTER 2018-01-26 14:04 | Outpatient (RCR) | payer MEDICARE, BC ==
--- NOTE | 2018-01-28 11:16 | NUR ---
ST Note: Pt cancelled appointment due to illness. Pt plans to RTC at next scheduled appointment.
--- NOTE | 2018-02-02 14:21 | NUR ---
ST NOTE: Pt no show for visit today. MBS scheduled for 02-04-18 at 1400.
--- NOTE | 2018-02-06 12:48 | NUR ---
ST Note: Pt cancelled session due to conflicting doctor's appointment.
--- NOTE | 2018-02-09 14:14 | NUR ---
ST NOTE: Pt unable to attend session secondary to MD mccormack. Will see pt on Friday02-11-18
== END 2018-02-23 ==
LOC: ST 14:04
PROVIDERS: ATTEND Internal Medicine Critical Care Medicine
DX: R13.13 Dysphagia, pharyngeal phase (principal); I50.9 Heart failure, unspecified; J18.9 Pneumonia, unspecified organism; K21.9 Gastro-esophageal reflux disease without esophagitis

== ENCOUNTER → 2018-02-11 | Outpatient (CLI) | payer MEDICARE ==
[~2018-02-11] MED LIST changes: +TYLENOL325 MG PO
--- NOTE | 2018-02-11 15:30 | Diagnostic Imaging Report ---
PROCEDURE:X-RAY MODIFIED BARIUM SWALLOW COMPARISON:[facility], DX, MODIFIED BA. SWALLOW, 12/12/2017, 12:19. INDICATIONS:Dysphasia with pneumonia DISCUSSION:Fluoroscopic examination was performed in conjunction with speech pathology, during swallowing of a variety of thin and thick liquid consistencies. The interpreting radiologist was in attendance during the exam. Fluoroscopy time: 0.2 minutes Total dose: 9.59 mGy CONCLUSION:Trace penetration but no aspiration. Please see the report from speech pathology for complete details. Pedro Dalton D.O. Dictated by: Pedro Dalton D.O. on 02/11/2018 at 15:40 Electronically approved by: Pedro Dalton D.O. on 02/11/2018 at 15:40
== END ==
LOC: DX 14:08
PROVIDERS: ATTEND Internal Medicine
DX: J18.9 Pneumonia, unspecified organism (principal); I50.9 Heart failure, unspecified; R13.13 Dysphagia, pharyngeal phase; Z85.038 Personal history of other malignant neoplasm of large intestine
CPT/HCPCS: 74230; 92611; G8996; G8997; G8998

== ENCOUNTER 2018-02-27 13:00 | Inpatient (IN) | payer BC, MEDICARE ==
[~2018-02-27] VITALS: Ht 170.2 cm; Wt 138.4 kg
[~2018-02-27 13:00] MED LIST changes: -TYLENOL325 MG PO
[2018-02-27] MEDS ORDERED: FUROSEMIDE INJ 10 MG/ML 4 ML VIAL IV ONE (14:00)
[2018-02-27 14:36] LABS: BASOPHILS % 0.6 % (0.0-1.0); EOSINOPHILS # (AUTO) 0.1 (0.0-0.4); HEMATOCRIT 35.5 % (34.2-44.1); HEMOGLOBIN 10.1 g/dL (12.0-16.0); LYMPHOCYTES # (AUTO) 0.5 (1.0-3.2); LYMPHOCYTES % 10.6 % (18.0-39.1); MEAN CORPUSCULAR HEMOGLOBIN 25.6 pg (28-32); MEAN CORPUSCULAR HGB CONC 28.5 g/dL (31-35); MEAN CORPUSCULAR VOLUME 90.1 fL (81-99); MONOCYTES # (AUTO) 0.8 (0.2-0.8); MONOCYTES % 16.9 % (4.4-11.3); NEUTROPHILS # (AUTO) 3.5 (2.1-6.9); NEUTROPHILS % 69.7 % (38.7-80.0); PLATELET COUNT 166 x10e3/uL (140-360); RED BLOOD COUNT 3.94 x10e6/uL (3.6-5.1); RED CELL DISTRIBUTION WIDTH 16.1 % (11.7-14.4)
[2018-02-27 14:56] LABS: ALBUMIN 3.6 g/dL (3.5-5.0); ANION GAP 13.4 mmol/L (8-16); CALCIUM 9.4 mg/dL (8.4-10.2); CREATININE, SERUM 1.11 mg/dL (0.57-1.11); POTASSIUM 4.4 mmol/L (3.5-5.1)
--- NOTE | 2018-02-27 15:41 | Diagnostic Imaging Report ---
Examination: Single AP view of the chest. COMPARISON: None. INDICATION: Congestive heart failure DISCUSSION: Lines/tubes: None. Lungs: Pulmonary edema. Pleura: There is no pleural effusion or pneumothorax. Heart and mediastinum: Cardiomegaly. Bones and soft tissues: No acute bony abnormalities. IMPRESSION: 1. Cardiomegaly with pulmonary edema Signed by: Dr. Alexander Carrillo M.D. on 02/27/2018 3:38 PM
[2018-02-27] MEDS ORDERED: BACITRACIN ZINC 0.9GM TP ONE (17:00)
[2018-02-27] MEDS ORDERED: ASPIRIN 81 MG CHEW TAB PO ONE (17:30)
[2018-02-27] MEDS: BUMETANIDE INJ 0.25MG/ML 4ML VIAL IV SCH (17:57)
[2018-02-27 18:26] LABS: CREATINE KINASE MB 0.7 ng/mL (0-5.0)
[2018-02-27] MEDS: ALBUTEROL/IPRATROPIUM 3 ML NEB NEB SCH (18:45)
--- NOTE | 2018-02-27 19:09 | NUR ---
walking round with VAZQUEZ Graf
--- NOTE | 2018-02-27 19:17 | NUR ---
WALKING ROUNDS WITH VAZQUEZ HEALY DAY SHIFT NURSE.
--- NOTE | 2018-02-27 19:46 | NUR ---
REPORT REC'D FROM ER NURSE REBUEN VILLELA.
--- NOTE | 2018-02-27 20:42 | NUR ---
pt rec'd to room #100 at this time with daughter at bedside. Pt AOx3, able to verbalize needs. NAD observed or reported. Safety measures intact. Call light in reach. POC discussed.
[2018-02-27 21:13] VITALS: BP 168/71
[2018-02-27] MEDS ORDERED: TYLENOL325 MG PO (21:13)
[2018-02-27] MEDS ORDERED: CEFEPIME HCL 1 GM VIAL IV SCH (21:15)
[2018-02-27] MEDS: CEFEPIME 1GM/NS 0.9% 50 ML 50 ML IV SCH (22:30)
--- NOTE | 2018-02-27 22:35 | History and Physical ---
REASON FOR ADMISSION: CHF exacerbation. HISTORY OF PRESENT ILLNESS: The patient is a lady well known to me with history of CHF, chronic respiratory failure, history of pulmonary embolus, who presents with significant increased peripheral edema as well as weight gain of about 18 pounds in approximately 2 days as well as increasing shortness of breath, so she was admitted for further evaluation of her CHF exacerbation. PAST MEDICAL HISTORY: Significant for CHF, hypertension, chronic respiratory failure, DVT. MEDICATIONS: See MAR. ALLERGIES: None. SOCIAL HISTORY: Lives at home with her daughter. Nonsmoker and nondrinker. FAMILY HISTORY: Hypertension, diabetes. PHYSICAL EXAMINATION VITAL SIGNS: Temperature 99.2, pulse 63, blood pressure 137/68, sats 95% on room air. GENERAL: No apparent distress, lying in bed. NECK: Supple. CARDIOVASCULAR: Regular rate and rhythm. LUNGS: Decreased breath sounds bilaterally. ABDOMEN: Good bowel sounds. Soft and nontender. EXTREMITIES: Shows 4+ peripheral edema and left lower extremity still has some mild redness and open area. ASSESSMENT AND PLAN 1. Cellulitis. We will place the patient on IV antibiotics. 2. Congestive heart failure exacerbation. We will place the patient on diuretic therapy cardiology. 3. Hypertension. . 5. History of deep venous in thrombosis Job#: [id number] RE
[2018-02-27 22:51] VITALS: BP 168/71
[2018-02-27 23:35] VITALS: BP 145/65
[2018-02-28] VITALS (7 sets, daily range): BP systolic 112–142; BP diastolic 56–65
[2018-02-28] MEDS: ALBUTEROL/IPRATROPIUM 3 ML NEB NEB SCH ×4 (01:05→19:25)
--- NOTE | 2018-02-28 01:25 | NUR ---
Labs drawn at this time. Pt continues to be awake and denies any c/o. NAD observed.
[2018-02-28 02:09] LABS: CREATINE KINASE MB 0.4 ng/mL (0-5.0)
[2018-02-28] MEDS: BUMETANIDE INJ 0.25MG/ML 4ML VIAL IV SCH ×2 (05:12→16:48)
[2018-02-28 05:26] LABS: BASOPHILS % 0.5 % (0.0-1.0); EOSINOPHILS # (AUTO) 0.1 (0.0-0.4); EOSINOPHILS % 2.4 % (0.0-6.0); HEMATOCRIT 33.7 % (34.2-44.1); HEMOGLOBIN 9.7 g/dL (12.0-16.0); LYMPHOCYTES # (AUTO) 0.6 (1.0-3.2); LYMPHOCYTES % 13.1 % (18.0-39.1); MEAN CORPUSCULAR HEMOGLOBIN 25.6 pg (28-32); MEAN CORPUSCULAR HGB CONC 28.8 g/dL (31-35); MEAN CORPUSCULAR VOLUME 88.9 fL (81-99); MONOCYTES # (AUTO) 0.8 (0.2-0.8); MONOCYTES % 18.9 % (4.4-11.3); NEUTROPHILS # (AUTO) 2.7 (2.1-6.9); NEUTROPHILS % 64.9 % (38.7-80.0); PLATELET COUNT 151 x10e3/uL (140-360); RED BLOOD COUNT 3.79 x10e6/uL (3.6-5.1); RED CELL DISTRIBUTION WIDTH 16.1 % (11.7-14.4)
--- NOTE | 2018-02-28 06:55 | Diagnostic Imaging Report ---
EXAMINATION: CHEST SINGLE (PORTABLE) INDICATION: CHF COMPARISON: Chest x-ray 02/27/2018 FINDINGS: AP view TUBES and LINES: None. LUNGS: Lungs are well inflated. Stable edema. PLEURA: Probable trace pleural effusions. No pneumothorax. HEART AND MEDIASTINUM: Stable cardiomegaly. BONES AND SOFT TISSUES: No acute osseous lesion. Soft tissues are unremarkable. UPPER ABDOMEN: No free air under the diaphragm. IMPRESSION: Stable cardiomegaly and pulmonary edema. Signed by: DR. Ernesto Sibley MD on 02/28/2018 6:52 AM
--- NOTE | 2018-02-28 07:27 | Progress Note ---
DATE: SUBJECTIVE: Patient is here for acute exacerbation of CHF and cellulitis of the lower extremities. The patient is currently afebrile. Bowel movements are positive. The patient has a Selby catheter in and is on IV Lasix. Currently, some shortness of breath and O2 by nasal cannula. MEDICATIONS: She is on Bumex 1 mg q.12 hours IV, albuterol/Atrovent treatments q.4 hours, cefepime q.12 hours, potassium chloride 20 mEq daily, metoprolol 50 mg twice a day, apixaban 5 mg for DVT, and Aldactone 25 mg. OBJECTIVE VITAL SIGNS: Temperature is 98.4, pulse is 62, respirations of 18, blood pressure is 112/58, and pulse oximetry at 94% on 2 liters of nasal cannula. HEENT: Normocephalic, atraumatic. Pupils are reactive to light and accommodation. CVS: S1, S2 normal, regular rhythm and no S3 present. LUNGS: Positive for a few crackles in the lung bases. Decreased breath sounds. ABDOMEN: Nontender, nondistended. EXTREMITIES: Right lower extremity with erythema and ecchymosis to the right knee area and also swelling present. Left knee with open wound on the left side anterior boyle. The patient continues to have some erythema and redness in the area. IMAGING STUDIES: None done; x-ray has been ordered today. LABORATORY VALUES: Today's hemoglobin is 9.7 and hematocrit of 33.7, showing anemia. Chemistries; sodium was 141, potassium 4.4, BUN is 27, and creatinine of 1.11. Troponins have been trended to be negative. BNP, last one 1710. ASSESSMENT 1. Congestive heart failure. Continue with Bumex IV q.12 hours, strict I's and O's, and low-sodium diet. 2. Cellulitis of the lower extremity. She is on cefepime q.12 hours, continue the same. 3. Hypokalemia, potassium chloride has been on and the patient also for DVT is on Eliquis. PLAN: The plan is to continue diuresis and continue to monitor the patient. Job#: [id number] PSO
[2018-02-28 08:23] LABS: LYMPHOCYTES % (MANUAL) 8 % (19-48); MONOCYTES % (MANUAL) 9 % (3.4-9.0); NEUTROPHILS % (MANUAL) 83 % (40-74)
[2018-02-28 08:25] LABS: ANISOCYTOSIS SLIGHT; HYPOCHROMASIA MODERATE; PLATELET ESTIMATE ADEQUATE; PLATELET MORPHOLOGY COMMENT NORMAL; RBC MORPHOLOGY COMMENT ABNORMAL
[2018-02-28] MEDS: APIXABAN 5 MG TABLET PO SCH (08:45)
[2018-02-28] MEDS: CEFEPIME 1GM/NS 0.9% 50 ML 50 ML IV SCH ×2 (08:45→21:53)
[2018-02-28] MEDS: SPIRONOLACTONE 25 MG TAB PO SCH (08:45)
[2018-02-28] MEDS: FLECAINIDE ACETATE 100 MG TAB PO SCH ×2 (08:45→21:53)
[2018-02-28] MEDS: POTASSIUM CHLORIDE 10MEQ EA PO SCH (08:45)
[2018-02-28] MEDS: METOPROLOL TARTRATE 50 MG TAB PO SCH ×2 (08:45→16:48)
--- NOTE | 2018-02-28 08:45 | NUR ---
assessment complete no distress noted,updated on poc voiced understanding, denies pain at this time, o2 @ 4L nc, bowers to bsd with yellow urine noted, r ac 20g no ss of infiltration noted, no other co voiced call light in reach will continue ot monitor
[2018-02-28] MEDS ORDERED: APIXABAN 5 MG TABLET PO SCH (09:00)
[2018-02-28 09:55] LABS: CREATINE KINASE MB 0.4 ng/mL (0-5.0)
--- NOTE | 2018-02-28 13:10 | NUR ---
Nutrition Screen Note RD Recommendation for Physician: Continue diet as ordered Plan of Care: RD following, monitoring for adequacy and tolerance Nutrition reason for involvement: Nutrition Risk Trigger-Dx/MST Primary Diagnose(s): heart failure Ht:67 in Wt:331.25lbs BMI: 51.9kg/m2 IBW:135lbs RD Assessment:(02/28/2018) Initial encounter with patient. Pt is eating well and can feed herself. Pt denies N,V, D, nor has any difficulty chewing or swallowing. Current Diet: Cardiac Malnutrition Evaluation (02/28/2018) The patient does not meet criteria for a specified degree of malnutrition at this time. Will re-evaluate at follow-up as appropriate. Diet Education Needs Assessment: Diet education not indicated. Diet Adequacy: Meeting calorie needs, Meeting protein needs, Meeting fluid needs Tolerance: Tolerating PO Nutrition Care Level:Brannon May RD, LD, [facility]
--- NOTE | 2018-02-28 15:01 | NUR ---
LLE wound weeping, cleansed wound with ns covered with 4x4's and kerlix pt tolerated well
[2018-02-28] MEDS ORDERED: ENOXAPARIN SOD INJ 40 MG/0.4 ML SYR SC SCH (17:00)
--- NOTE | 2018-02-28 19:32 | NUR ---
WALKING ROUNDS PERFORMED, RECEIVED PT LAYING SEMI FOWLERS IN BED, AAOX3, RR EVEN AND NON-LABORED, PT RECEIVING NEB TREATMENT AT THIS TIME. LEFT PT LAYING SEMI FOWLERS IN BED, BED IN LOW LOCKED POSITION, SIDE RAILS UPX2, CALL LIGHT AND PHONE WITHIN REACH. FAMILY AT BEDSIDE.
--- NOTE | 2018-02-28 19:48 | Consultation ---
DATE OF CONSULTATION: February 28, 2018 CARDIOLOGY CONSULTATION REQUESTING PHYSICIAN: Dr. Pelayo. REASON FOR CONSULTATION: Congestive heart failure. HISTORY OF PRESENT ILLNESS: This is a 67-year-old woman with history of hypertension, diabetes mellitus, and diastolic heart failure who presents with complaints of dyspnea and lower extremity edema. The patient reports that she injured her left leg against the carrier of her oxygen tank approximately 3 weeks ago. She subsequently had increasing lower extremity edema as well as dyspnea on exertion over this period of time. She endorses chronic orthopnea and sleeps in her recliner, but denies chest pain, palpitations, or PND. REVIEW OF SYSTEMS: Negative except as per HPI. PAST MEDICAL HISTORY 1. Chronic diastolic heart failure. 2. History of PE/DVT. 3. History of chronic respiratory failure, on home oxygen therapy. 4. Hypertension. PAST SURGICAL HISTORY 1. section x2. 2. Cholecystectomy with hernia surgery. 3. Recent colon cancer, status post resection. ALLERGIES: PLEASE SEE EMR. MEDICATIONS: Please see medication list. SOCIAL HISTORY: Denies tobacco or illicits drugs. Drinks alcohol rarely. FAMILY HISTORY: Noncontributory to current illness. PHYSICAL EXAMINATION VITAL SIGNS: Temperature 97.9 degrees, pulse 60, respiratory rate 20, blood pressure 142/65, oxygen saturation 95% on 2 liters nasal cannula. GENERAL: Obese woman, no acute distress. HEENT: Normocephalic, atraumatic. Pupils equal. No scleral icterus. NECK: Supple. No thyromegaly or cervical lymphadenopathy. No carotid bruits. LUNGS: Decreased breath sounds at the bases. No wheezes or crackles. CARDIOVASCULAR: Normal rate. Regular rhythm. No murmur. Normal S1 and S2. ABDOMEN: Soft, nontender. EXTREMITIES: 2+ edema bilaterally. There is a small wound on the lateral surface of her left lower extremity. LABS: WBC 4.9, hemoglobin 9.7, hematocrit 33.7, platelets 151. Troponin 0.017. BNP 1711. Chest x-ray, stable cardiomegaly and pulmonary edema. Echocardiogram, left ventricular size is normal with mild concentric LVH. LVEF is low normal with EF of 50% to 55%. Pseudonormal LV filling consistent with elevated LA pressures. RVSP is 45 mmHg assuming RA pressure of 3 mmHg. IMPRESSION 1. Tepmo-sd-bdfrgki diastolic heart failure. 2. Left lower extremity wound with cellulitis. 3. History of pulmonary embolism/deep venous thrombosis, on apixaban. 4. Hypertension. RECOMMENDATIONS: Patient remains volume overloaded with adequate diuresis on Bumex 1 mg IV q.12 hours. We will continue current regimen. Monitor volume status closely. Antibiotics per primary service. Thank you for this consult. We will continue to follow. Job#: [id number] RTRupinder
[2018-03-01] VITALS (8 sets, daily range): BP systolic 112–135; BP diastolic 53–63
[2018-03-01] MEDS: ALBUTEROL/IPRATROPIUM 3 ML NEB NEB SCH ×4 (00:40→19:38)
[2018-03-01] MEDS: BUMETANIDE INJ 0.25MG/ML 4ML VIAL IV SCH ×3 (05:19→22:55)
[2018-03-01 05:37] LABS: BASOPHILS % 0.4 % (0.0-1.0); EOSINOPHILS # (AUTO) 0.2 (0.0-0.4); HEMATOCRIT 32.2 % (34.2-44.1); HEMOGLOBIN 9.2 g/dL (12.0-16.0); LYMPHOCYTES # (AUTO) 0.5 (1.0-3.2); LYMPHOCYTES % 10.9 % (18.0-39.1); MEAN CORPUSCULAR HEMOGLOBIN 25.6 pg (28-32); MEAN CORPUSCULAR HGB CONC 28.6 g/dL (31-35); MEAN CORPUSCULAR VOLUME 89.7 fL (81-99); MONOCYTES % 19.2 % (4.4-11.3); NEUTROPHILS # (AUTO) 3.3 (2.1-6.9); NEUTROPHILS % 66.1 % (38.7-80.0); PLATELET COUNT 147 x10e3/uL (140-360); RED BLOOD COUNT 3.59 x10e6/uL (3.6-5.1); RED CELL DISTRIBUTION WIDTH 16.4 % (11.7-14.4)
[2018-03-01 06:08] LABS: ANION GAP 11.9 mmol/L (8-16); CALCIUM 8.7 mg/dL (8.4-10.2); POTASSIUM 3.9 mmol/L (3.5-5.1)
--- NOTE | 2018-03-01 08:26 | Progress Note ---
DATE: SUBJECTIVE: Patient has been admitted for cellulitis of the lower extremities. Patient is also admitted for qiymg-ty-qlyprez diastolic heart failure and history of pulmonary embolism. Currently, patient is doing better and did not have her CPAP machine, asked her to bring it. Also, we will consult neurology. Patient has been seen by cardiology. No complaints. Did not have her CPAP machine. She has sleep apnea. MEDICATIONS 1. Bumex 1 mg q.12 hours. 2. Flecainide 100 mg q.12 hours. 3. Cefepime q.12. 4. Metoprolol 50 mg twice a day. 5. Eliquis 5 mg twice a day. 6. Aldactone 25 mg daily. OBJECTIVE VITAL SIGNS: Temperature is 97.6, pulse of 60, blood pressure is 125/56, pulse oximetry 94% on 2 liters of oxygen. HEENT: Normocephalic, atraumatic. CVS: S1, S2 normal. Regular rate and rhythm. ABDOMEN: Nontender, nondistended. EXTREMITIES: No clubbing. Positive for erythema in bilateral lower extremities. Left lower extremity with increased erythema and bandaged lower extremity for chronic venous ulcer and no cyanosis. LABORATORY VALUES: Today's white count is 4.94, hemoglobin of 9.2, hematocrit of 32.2. Chemistries; sodium of 139, BUN of 22, creatinine of 1.0. Troponins have been trended negative. BNP was 1710.05. ASSESSMENT 1. Cellulitis of the lower extremities. 2. Congestive heart failure. 3. Hypokalemia, corrected. 4. Sleep apnea. 5. Hypertension. 6. History of deep venous thrombosis. PLAN: To continue on cefepime. Replace potassium as needed. Continue with Bumex IV q.12 hours and low-sodium diet. CPAP to be brought from home. Continue current regimen and for anemia, keep checking her hemoglobin A1c. Anemia is multifactorial. Job#: [id number] LB
[2018-03-01] MEDS: POTASSIUM CHLORIDE 10MEQ EA PO SCH (08:30)
[2018-03-01] MEDS: METOPROLOL TARTRATE 50 MG TAB PO SCH ×2 (08:30→17:25)
[2018-03-01] MEDS: CEFEPIME 1GM/NS 0.9% 50 ML 50 ML IV SCH ×2 (08:30→21:45)
[2018-03-01] MEDS: FLECAINIDE ACETATE 100 MG TAB PO SCH ×2 (08:30→21:45)
[2018-03-01] MEDS: APIXABAN 5 MG TABLET PO SCH (08:30)
--- NOTE | 2018-03-01 08:30 | NUR ---
assessment complete no distress noted, updated on poc voiced understanding, wound with dressing to lle c/d/i,redness to BLE, aware, o2@2L nc, r ac 20g no ss of infiltration noted, no other co voiced call light in reach will continue to monitor
[2018-03-01] MEDS: SPIRONOLACTONE 25 MG TAB PO SCH (09:30)
[2018-03-01] MEDS: ACETAMINOPHEN 325 MG TAB PO PRN (09:32)
[2018-03-01 09:47] LABS: EOSINOPHILS % (MANUAL) 8 % (0-7); LYMPHOCYTES % (MANUAL) 5 % (19-48); MONOCYTES % (MANUAL) 18 % (3.4-9.0); NEUTROPHILS % (MANUAL) 69 % (40-74); PLATELET ESTIMATE ADEQUATE; PLATELET MORPHOLOGY COMMENT NORMAL; RBC MORPHOLOGY COMMENT NORMAL
--- NOTE | 2018-03-01 19:08 | NUR ---
WALKING ROUNDS PERFORMED, RECEIVED PT LAYING SEMI FOWLERS IN BED, AAOX3, RR EVEN AND NON-LABORED, ON RA. NO S/SX OF DISTRESS NOTED. LEFT PT LAYING SEMI FOWLERS IN BED, BED IN LOW LOCKED POSITION, SIDE RAILS UPX2, CALL LIGHT AND PHONE WITHIN REACH. FAMILY AT BEDSIDE.
--- NOTE | 2018-03-01 21:53 | Progress Note ---
DATE: March 01, 2018 CARDIOLOGY PROGRESS NOTE SUBJECTIVE: Patient denies chest pain, but still complains of dyspnea on exertion. OBJECTIVE: VITAL SIGNS: Temperature 98.1 degrees, pulse 60, respiratory rate 20, blood pressure 112/53, oxygen saturation 94% on 2 liters nasal cannula. GENERAL: Obese woman, in no acute distress. LUNGS: Decreased breath sounds at the bases. No wheezes or crackles. CARDIOVASCULAR: Normal rate, regular rhythm. No murmur. Normal S1 and S2. ABDOMEN: Soft, nontender. EXTREMITIES: 2+ pitting edema bilaterally. Dressing is noted on the left lower extremity. CARDIAC MEDICATIONS: Bumex 1 mg IV q.12h., metoprolol tartrate 50 mg p.o. b.i.d., spironolactone 25 mg p.o. daily, apixaban 5 mg p.o. daily. LABS: WBC 4.94, hemoglobin is 9.2, hematocrit 33.2, platelets 147,000. Sodium 139, potassium 3.9, chloride 93, CO2 38, BUN 22, creatinine 1. TELEMETRY: Normal sinus rhythm. IMPRESSION: 1. Cdycr-qf-isvmggc diastolic heart failure. 2. Left lower extremity wound with cellulitis. 3. History of pulmonary embolism/deep venous thrombosis, on apixaban. 4. Hypertension. RECOMMENDATIONS: Patient remains volume overloaded. Increase Bumex to q.8h. Blood pressure is acceptable. Continue current cardiac medications. We will increase Bumex to b.i.d. dosing. Antibiotics per primary service. Thank you for this consult. We will continue to follow. Job#: [id number]
--- NOTE | 2018-03-01 23:17 | NUR ---
SPOKE WITH PT CONCERNING NEED FOR BATH. PT REPORTS SHE WILL TAKE A BATH IN THE AM AFTER MD JACOBS COMES IN TO SEE HER.
[2018-03-02] VITALS (8 sets, daily range): BP systolic 107–141; BP diastolic 54–66
[2018-03-02] MEDS: BUMETANIDE INJ 0.25MG/ML 4ML VIAL IV SCH ×3 (05:52→22:00)
[2018-03-02] MEDS: ALBUTEROL/IPRATROPIUM 3 ML NEB NEB SCH ×4 (06:15→20:20)
--- NOTE | 2018-03-02 06:39 | NUR ---
AFTER PT SHOWERED, DRESSING TO (L) LATERAL LOWER EXTREMITY CHANGED. APPLIED ADAPTIC, STERILE 4X4 AND SECURED WITH KERLIX AND PAPER TAPE. APPLIED ANTI-FUNGAL CREAM TO BILATERAL LOWER BREAST AREAS AND TO (R) LOWER ABDOMINAL FOLD.
--- NOTE | 2018-03-02 06:49 | NUR ---
AFTER REMOVING WRAP FROM AROUND IV POST SHOWER, IV NOTED TO BE LEAKING. IV DISCONTINUED, CATHETER TIP INTACT. NEW IV STARTED TO (R) FA 20G. FLUSHES WITHOUT DIFFICULTY, BLOOD RETURN NOTED.
--- NOTE | 2018-03-02 07:00 | NUR ---
SHIFT REPORT RECEIVED FROM NIGHT RN. PT DENIES NEEDS AT THIS TIME.
[2018-03-02] MEDS: APIXABAN 5 MG TABLET PO SCH ×3 (09:36→17:32)
[2018-03-02] MEDS: SPIRONOLACTONE 25 MG TAB PO SCH (09:36)
[2018-03-02] MEDS: METOPROLOL TARTRATE 50 MG TAB PO SCH ×2 (09:37→17:32)
[2018-03-02] MEDS: FLECAINIDE ACETATE 100 MG TAB PO SCH ×2 (09:37→22:00)
[2018-03-02] MEDS: CEFEPIME 1GM/NS 0.9% 50 ML 50 ML IV SCH ×2 (09:38→22:00)
[2018-03-02] MEDS: POTASSIUM CHLORIDE 10MEQ EA PO SCH (09:38)
--- NOTE | 2018-03-02 10:18 | NUR ---
WOUND CARE NURSE CONSULTATION. 67 YEAR OLD FEMALE ADMITTED TO [facility] WITH DX OF CHF. HX OF HTN, CHRONIC RESPIRATORY FAILURE AND DVT. HEAD TO TOE SKIN ASSESSMENT PERFORMED TODAY. PT PRESENTS WITH ULCERS TO RIGHT PROXIMAL LOWER LEG, 0.8X0.8X0.2CM. 80% SLOUGH; RIGHT LATERAL LOWER LEG, 0.5X0.5X0.2CM. 50% FIBRIN, 50% GRANULAR; LEFT LOWER LEG 2.4X2.5X0.2CM, 95% SLOUGH. YEAST TO ABDOMINAL AND BREAST FOLDS IS PRESENT WELL A 2X1X0.2CM ABRASION TO SACRAL CREASE. 4+ PITTING EDEMA IS PRESENT TO BILATERAL LOWER EXTREMITIES AND CELLULITIS. PT CURRENTLY ON FLUID VOLUME OVERLOAD WITH 02 PER NC. NO S/S OF ULCER INFECTION IS NOTED. NO OTHER AREAS OF CONCERN ARE NOTED AT THIS TIME. PT EDUCATED ON PLAN OF CARE, DRESSING CHANGES AND PRESSURE RELIEF TO THE AFFECTED AREAS. STATES UNDERSTANDING. LABS: WBC: 4.94 ALB: 3.6 RECOMMENDATIONS: CLEAN BILATERAL LOWER LEG ULCERS WITH NS, APPLY SANTYL AND COVER WITH MOIST 4X4 GAUZE, KERLIX AND TAPE. CHANGE DRESSING DAILY AND PRN. WASH ABDOMINAL AND BREAST FOLDS WITH SOAP AND WATER, PAT DRY AND APPLY NYSTATIN CREAM DAILY AND PRN. APPLY VENELEX OINTMENT TO SACRAL CREASE BID AND COVER WITH FOAM DRESSING. PROVIDE PT WITH BILATERAL HEEL PROTECTORS AND PILLOW SUSPENSIONS CONTINUE WITH ALTERNATING LOW AIR LOSS MATTRESS TURN PT EVERY 2 HOURS AND PRN. THANKS FOR THIS CONSULTATION. Addendum: 03/02/18 at 1033 by Lindsay Cohen RN Amended: Links added.
--- NOTE | 2018-03-02 13:27 | NUR ---
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 CM/SW role and care transitions discussed. Anticipated discharge plan discussed along with duration of care. CM discussed patients right to make decisions in care. CM/SW work hours given. Patient lives: Patient lives in an apartment complex in [place], [place] with daughter Renetta Britt Admit/Transfer: ED POA/Emergency contact: Renetta BrittIgtxbv-[phone] Current/Previous Home Health: none PCP/Follow-up Care: DR. MAXINE JCAOBS Current/Previous DME: , LEO HAYES Other Services: Patient with home oxygen; DAUGHTER CALLED TO GET COMPANY NAME AND NUMBER. PENDING RETURN CALL Employment Status: EMPLOYED Areas of Concerns: NONE AT THIS TIME Referral Needs: POSSIBLE HOME HEALTH FOR PHYSICAL THERAPY Education Needs: NONE AT THIS TIME IMM/SALAZAR given and signed (if applicable): NO Goal for discharge: DISCHARGE HOME WITH NO NEEDS BUT DOES NOT MIND HOME HEALTH SERVICES IF NEEDED CM left business card at the bedside with contact information. Name and number was also written on the patients whiteboard. Patient verbalized understanding of discussion. CM will follow-up with ongoing discharge and transition of care needs.
[2018-03-02] MEDS: BALSAM PERU/CASTOR OIL 60 GM OINT...G. TP SCH (17:32)
--- NOTE | 2018-03-02 23:49 | Progress Note ---
DATE: March 02, 2018 CARDIOLOGY PROGRESS NOTE SUBJECTIVE: The patient denies chest pain or shortness of breath. OBJECTIVE VITAL SIGNS: Temperature 97.8 degrees, pulse 59, respiratory rate 18, blood pressure 107/54, oxygen saturation 98%. GENERAL: Obese woman, in no acute distress, awake and alert. LUNGS: Decreased breath sounds at the bases. No wheezes or crackles. CARDIOVASCULAR: Normal rate, regular rhythm. No murmur. Normal S1 and S2. ABDOMEN: Soft, nontender. EXTREMITIES: Trace 2+ pitting edema bilaterally. Dressing noted on bilateral lower extremities. CARDIAC MEDICATIONS 1. Metoprolol tartrate 50 mg p.o. b.i.d. 2. Bumex 1 mg IV q.8 h. 3. Spironolactone 25 mg p.o. daily. 4. Apixaban 5 mg p.o. b.i.d. LABS: None today. TELEMETRY: Normal sinus rhythm. IMPRESSION 1. Hdhve-jc-eplukpe diastolic heart failure. 2. Left lower extremity wound with cellulitis. 3. History of pulmonary embolism/deep venous thrombosis, on apixaban. 4. Hypertension. RECOMMENDATIONS: The patient is still volume overloaded. Continue diuresis. Blood pressure is acceptable. Continue current cardiac medications. Antibiotics per primary service. Thank you for this consult. We will continue to follow. Job#: [id number] JR
[2018-03-03] VITALS (7 sets, daily range): BP systolic 63–144; BP diastolic 56–67
[2018-03-03] MEDS: ALBUTEROL/IPRATROPIUM 3 ML NEB NEB SCH ×4 (00:30→20:10)
[2018-03-03 05:49] LABS: BASOPHILS % 0.6 % (0.0-1.0); EOSINOPHILS # (AUTO) 0.3 (0.0-0.4); EOSINOPHILS % 5.4 % (0.0-6.0); HEMATOCRIT 32.6 % (34.2-44.1); HEMOGLOBIN 9.4 g/dL (12.0-16.0); LYMPHOCYTES # (AUTO) 0.5 (1.0-3.2); LYMPHOCYTES % 10.5 % (18.0-39.1); MEAN CORPUSCULAR HEMOGLOBIN 25.8 pg (28-32); MEAN CORPUSCULAR HGB CONC 28.8 g/dL (31-35); MEAN CORPUSCULAR VOLUME 89.3 fL (81-99); MONOCYTES # (AUTO) 0.9 (0.2-0.8); NEUTROPHILS # (AUTO) 3.1 (2.1-6.9); NEUTROPHILS % 64.3 % (38.7-80.0); PLATELET COUNT 138 x10e3/uL (140-360); RED BLOOD COUNT 3.65 x10e6/uL (3.6-5.1)
[2018-03-03] MEDS: BUMETANIDE INJ 0.25MG/ML 4ML VIAL IV SCH ×3 (06:01→22:15)
[2018-03-03 06:21] LABS: ALBUMIN/GLOBULIN RATIO 0.9 (0.8-2.0); ANION GAP 10.4 mmol/L (8-16); CREATININE, SERUM 1.05 mg/dL (0.57-1.11); MAGNESIUM 1.9 MG/DL (1.3-2.1); POTASSIUM 4.4 mmol/L (3.5-5.1)
[2018-03-03] MEDS: POTASSIUM CHLORIDE 10MEQ EA PO SCH (09:55)
[2018-03-03] MEDS: APIXABAN 5 MG TABLET PO SCH ×2 (09:55→16:52)
[2018-03-03] MEDS: SPIRONOLACTONE 25 MG TAB PO SCH (09:55)
[2018-03-03] MEDS: BALSAM PERU/CASTOR OIL 60 GM OINT...G. TP SCH ×2 (09:56→16:52)
[2018-03-03] MEDS: CEFEPIME 1GM/NS 0.9% 50 ML 50 ML IV SCH ×2 (09:56→22:15)
[2018-03-03] MEDS: FLECAINIDE ACETATE 100 MG TAB PO SCH ×2 (09:56→22:15)
[2018-03-03] MEDS: COLLAGENASE OINTMENT 30 GM TUBE TP SCH (09:56)
[2018-03-03] MEDS: NYSTATIN/TRIAMCINOLONE 15 GM CR TOP SCH (09:56)
[2018-03-03] MEDS: METOPROLOL TARTRATE 50 MG TAB PO SCH ×2 (09:56→16:52)
--- NOTE | 2018-03-03 10:23 | NUR ---
Patient alert and responsive, some SOB on exertion, used CPAP and on O2 NC 3L continuous, OOB and ambulated to bathroom with assist and Selby in place for diuresis and I/O, denies any pains, PT in to ambulate with patient at this time, will monitor.
[2018-03-03] MEDS ORDERED: ACETAZOLAMIDE SODIUM 500 MG/VIAL IV NR (11:30)
--- NOTE | 2018-03-03 11:32 | Progress Note ---
DATE: March 03, 2018 CARDIOLOGY PROGRESS NOTE SUBJECTIVE: The patient denies chest pain. She reports she walked with physical therapy today. Her dyspnea on exertion is better. OBJECTIVE VITAL SIGNS: Temperature 97.6 degrees, pulse 70, respiratory rate 19, blood pressure 139/63, oxygen saturation 92% on 3 L nasal cannula. GENERAL: Obese woman in no acute distress, awake and alert. LUNGS: Decreased breath sounds at the bases. No wheezes or crackles. CARDIOVASCULAR: Normal rate, regular rhythm. No murmur. Normal S1 and S2. ABDOMEN: Soft, nontender. EXTREMITIES: 2+ pitting edema bilaterally with dressing noted on bilateral lower extremities. CARDIAC MEDICATIONS 1. Voltaren 100 mg p.o. q.12 h. 2. Metoprolol tartrate 50 mg p.o. b.i.d. 3. Apixaban 5 mg p.o. b.i.d. 4. Spironolactone 25 mg p.o. daily. 5. Bumex 1 mg IV q.8 h. LABS: WBC 4.84, hemoglobin 9.4, hematocrit 32.6, platelets 138. Sodium 144, potassium 4.4, chloride 94, CO2 44, BUN 20, creatinine 1.05. TELEMETRY: Normal sinus rhythm. IMPRESSION 1. Johyr-td-hsxxmxn diastolic heart failure. 2. Left lower extremity wound with cellulitis. 3. History of pulmonary embolism/deep venous thrombosis, on apixaban. 4. Hypertension. RECOMMENDATIONS: The patient remains volume overloaded. Continue diuretics. The patient's CO2 is rising. We will give 1 dose of acetazolamide. Continue current cardiac medications otherwise. Antibiotics per primary service. Thank you for this consult. We will continue to follow. Job#: [id number]
[2018-03-04] VITALS (8 sets, daily range): BP systolic 116–144; BP diastolic 56–65
[2018-03-04] MEDS: ALBUTEROL/IPRATROPIUM 3 ML NEB NEB SCH ×5 (01:00→23:50)
[2018-03-04] MEDS: BUMETANIDE INJ 0.25MG/ML 4ML VIAL IV SCH ×3 (05:34→21:49)
[2018-03-04] MEDS ORDERED: SODIUM CHLORIDE 0.9% 250ML 250 ML ONE (08:38)
[2018-03-04] MEDS: APIXABAN 5 MG TABLET PO SCH (08:50)
[2018-03-04] MEDS: FLECAINIDE ACETATE 100 MG TAB PO SCH ×2 (08:50→21:49)
[2018-03-04] MEDS: METOPROLOL TARTRATE 50 MG TAB PO SCH ×2 (08:50→21:49)
[2018-03-04] MEDS: SPIRONOLACTONE 25 MG TAB PO SCH (08:50)
[2018-03-04] MEDS: POTASSIUM CHLORIDE 10MEQ EA PO SCH (08:50)
[2018-03-04] MEDS: POLYETHYLENE GLYCOL 3350 17 GM PACK PO SCH (09:00)
[2018-03-04] MEDS: CEFEPIME 1GM/NS 0.9% 50 ML 50 ML IV SCH ×2 (09:30→21:49)
[2018-03-04] MEDS: COLLAGENASE OINTMENT 30 GM TUBE TP SCH (15:00)
[2018-03-04] MEDS: NYSTATIN/TRIAMCINOLONE 15 GM CR TOP SCH (15:00)
[2018-03-04] MEDS: BALSAM PERU/CASTOR OIL 60 GM OINT...G. TP SCH ×2 (15:10→21:49)
--- NOTE | 2018-03-04 15:17 | NUR ---
PT ASSISTED BY PCT TO SHOWER, NOW SITTING ON SIDE OF BED, BILAT LE WOUNDS MEDICATED AND WRAPPED PER WOUND CARE ORDER, BILAT ABD FOLDS AND BILAT BREAST MEDICATED PER WOUND CARE, MEDICATION APPLIED TO SACRAL CREASE AND PINK FOAM DRESSING APPLIED PER WOUND CARE ORDERS, PT TOLERATED WELL
--- NOTE | 2018-03-04 19:25 | NUR ---
WALKING ROUNDS PERFORMED, RECEIVED PT LAYING SEMI FOWLERS IN BED, AAOX3, RR EVEN AND NON-LABORED, O2 BY NC AT 2L. NO S/SX OF DISTRESS NOTED. BILATERAL LOWER EXTREMITIES ELEVATED ON PILLOW. LEFT PT LAYING SEMI FOWLERS IN BED, BED IN LOW LOCKED POSITION, SIDE RAILS UPX2, CALL LIGHT AND PHONE WITHIN REACH. FAMILY AT BEDSIDE.
--- NOTE | 2018-03-04 22:49 | Progress Note ---
DATE: CARDIOLOGY PROGRESS NOTE SUBJECTIVE: Patient feels overall well. Denies any chest pain or shortness of breath. OBJECTIVE: VITAL SIGNS: Temperature is 96.8, heart rate is 61, respirations are 20, blood pressure is 116/56, oxygen saturation is 96% on 2 liters nasal cannula. GENERAL: She is a well-appearing woman, in no apparent distress, alert and oriented x3. CARDIOVASCULAR: Regular rate and rhythm. No murmurs. Normal S1 and S2. LUNGS: Diminished breath sounds at bilateral bases. No crackles. ABDOMEN: Soft, nontender. EXTREMITIES: 1+ edema bilaterally. LABORATORY DATA: Reviewed. Hemoglobin 9.4. No BNP from today. TELEMETRY MONITORING: Revealed normal sinus rhythm with rare premature ventricular complexes. IMPRESSION: 1. Enrhx-ih-szzjacx diastolic heart failure. 2. Left lower extremity cellulitis. 3. History of pulmonary embolism, deep venous thrombosis. 4. Hypertension. RECOMMENDATIONS: Would recommend repeating a BNP today as patient received acetazolamide yesterday. Continue all other current cardiovascular medications and diuretics. Thank you for the consultation. Will follow along with you. Job#: [id number]
[2018-03-05] VITALS (8 sets, daily range): BP systolic 123–149; BP diastolic 58–67
--- NOTE | 2018-03-05 05:40 | NUR ---
WHILE FLUSHING (R) FA IV PRIOR TO BUMEX ADMIN. PT REPORTS IT IS STINGING. IV DISCONTINUED, CATHETER TIP INTACT. APPLIED PRESSURE AND DRESSING. NEW IV STARTED TO (R) FA 20G, FLUSHES WITHOUT DIFFICULTY, BLOOD RETURN NOTED. APPLIED TEGADERM
[2018-03-05 05:42] LABS: BASOPHILS % 0.4 % (0.0-1.0); EOSINOPHILS # (AUTO) 0.2 (0.0-0.4); EOSINOPHILS % 4.3 % (0.0-6.0); HEMATOCRIT 33.7 % (34.2-44.1); HEMOGLOBIN 9.5 g/dL (12.0-16.0); LYMPHOCYTES # (AUTO) 0.6 (1.0-3.2); LYMPHOCYTES % 12.4 % (18.0-39.1); MEAN CORPUSCULAR HEMOGLOBIN 25.1 pg (28-32); MEAN CORPUSCULAR HGB CONC 28.2 g/dL (31-35); MEAN CORPUSCULAR VOLUME 89.2 fL (81-99); MONOCYTES # (AUTO) 0.9 (0.2-0.8); MONOCYTES % 17.5 % (4.4-11.3); NEUTROPHILS # (AUTO) 3.2 (2.1-6.9); NEUTROPHILS % 65.2 % (38.7-80.0); PLATELET COUNT 137 x10e3/uL (140-360); RED BLOOD COUNT 3.78 x10e6/uL (3.6-5.1)
[2018-03-05] MEDS: BALSAM PERU/CASTOR OIL 60 GM OINT...G. TP SCH ×2 (05:50→21:54)
[2018-03-05] MEDS: BUMETANIDE INJ 0.25MG/ML 4ML VIAL IV SCH ×3 (05:50→21:54)
[2018-03-05] MEDS: NYSTATIN/TRIAMCINOLONE 15 GM CR TOP SCH (05:50)
[2018-03-05] MEDS: COLLAGENASE OINTMENT 30 GM TUBE TP SCH (05:50)
[2018-03-05 06:13] LABS: CALCIUM 9.4 mg/dL (8.4-10.2); CREATININE, SERUM 1.05 mg/dL (0.57-1.11)
--- NOTE | 2018-03-05 06:34 | NUR ---
NOTIFIED MD JACOBS OF PT CRITICAL CO2 LAB RESULT. NO NEW ORDERS AT THIS TIME.
[2018-03-05] MEDS: ALBUTEROL/IPRATROPIUM 3 ML NEB NEB SCH ×4 (07:00→23:49)
--- NOTE | 2018-03-05 07:01 | NUR ---
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
[2018-03-05] MEDS: SPIRONOLACTONE 25 MG TAB PO SCH (09:14)
[2018-03-05] MEDS: POTASSIUM CHLORIDE 10MEQ EA PO SCH (09:14)
[2018-03-05] MEDS: APIXABAN 5 MG TABLET PO SCH (09:14)
[2018-03-05] MEDS: METOPROLOL TARTRATE 50 MG TAB PO SCH ×2 (09:15→21:54)
[2018-03-05] MEDS: FLECAINIDE ACETATE 100 MG TAB PO SCH ×2 (09:16→21:54)
[2018-03-05] MEDS: POLYETHYLENE GLYCOL 3350 17 GM PACK PO SCH (09:16)
[2018-03-05] MEDS: CEFEPIME 1GM/NS 0.9% 50 ML 50 ML IV SCH ×2 (09:17→21:54)
[2018-03-05] MEDS ORDERED: ACETAZOLAMIDE SODIUM 500 MG/VIAL IV ONE ×2 (10:15→14:33)
[2018-03-05 10:19] LABS: RBC MORPHOLOGY COMMENT NORMAL
[2018-03-05 10:20] LABS: PLATELET ESTIMATE SLIGHTLY DECREASED; PLATELET MORPHOLOGY COMMENT FEW LARGE
[2018-03-05 10:21] LABS: ANISOCYTOSIS SLIGHT; HYPOCHROMASIA MODERATE
--- NOTE | 2018-03-05 10:41 | Progress Note ---
DATE: March 05, 2018 CARDIOLOGY PROGRESS NOTE SUBJECTIVE: The patient denies chest pain or shortness of breath. However, she does report her oxygen saturation drops with sleep and with ambulation. OBJECTIVE VITALS: Temperature 97 degrees, pulse 78, respiratory rate 20, blood pressure 129/59, oxygen saturation 99% on 3 L nasal cannula. GENERAL: Obese woman in no acute distress, awake and alert. LUNGS: Diminished breath sounds at bilateral bases. No wheezes or crackles. CARDIOVASCULAR: Normal rate, regular rhythm. No murmur. Normal S1 and S2. ABDOMEN: Soft, nontender. EXTREMITIES: 2+ pitting edema bilaterally with dressing noted. CARDIAC MEDICATIONS 1. Voltaren 100 mg p.o. q.12 h. 2. Metoprolol tartrate 50 mg p.o. q.12 h. 3. Apixaban 5 mg p.o. daily. 4. Spironolactone 25 mg p.o. daily. 5. Bumex 1 mg IV q.8 h. LABS: WBC 4.91, hemoglobin 9.5, hematocrit 33.7, platelets 137. Sodium 141, potassium 4, chloride 90, CO2 45, BUN 21, creatinine 1.05. BNP 438. IMPRESSION 1. Itiak-oy-dngbnwh diastolic heart failure. 2. Left lower extremity wound with cellulitis. 3. History of pulmonary embolism/deep venous thrombosis, on apixaban. 4. Hypertension. RECOMMENDATIONS: The BNP is better but remains elevated. Continue acetazolamide. Continue current cardiac medications otherwise. Thank you for this consult. We will continue to follow. Job#: [id number]
--- NOTE | 2018-03-05 13:28 | NUR ---
CM SPOKE TO RN DURING INTERDISCIPLINARY ROUNDS REGARDING PATIENT PLAN OF CARE. PATIENT WITH HOME OXYGEN AND CPAP. ELECTRONIC WARFARE SPECIALIST FELICIA REPORTS PATIENT WALKED 200 FT WITH ROLLING WALKER. PATIENT PROJECTED TO RETURN HOME WITH DAUGHTER WITH NO NEEDS. PROJECTED DISCHARGE DATE IN 03/06.
--- NOTE | 2018-03-05 14:58 | NUR ---
Nutrition Screen Note RD Recommendation for Physician: -Continue cardiac diet as ordered Plan of Care: RD following, monitoring for adequacy and tolerance Nutrition reason for involvement: Follow up Primary Diagnose(s): heart failure PMHx: CHF, hypertension, chronic respiratory failure, DVT. Ht:67 in Wt:331.25lbs 02/27, 314lb 03/03 (possibly due to fluid loss on Bumetanide) BMI: 51.9kg/m2 IBW:135lbs RD Assessment: 03/05 - Chart reviewed. Visited pt in the room. Pt reported good appetite with 100% recorded meal intake. No GI complains noted. LBM 03/04, normal per pt. No chewing or swallowing difficulty noted. Will continue to monitor and follow. (02/28/2018) Initial encounter with patient. Pt is eating well and can feed herself. Pt denies N,V, D, nor has any difficulty chewing or swallowing. Current Diet: Cardiac Malnutrition Evaluation (02/28/2018) The patient does not meet criteria for a specified degree of malnutrition at this time. Will re-evaluate at follow-up as appropriate. Diet Education Needs Assessment: Diet education not indicated. Diet Adequacy: Meeting calorie needs, Meeting protein needs, Meeting fluid needs Tolerance: Tolerating PO Nutrition Care Level:Low Anna Gomez, MS, RD, LD
--- NOTE | 2018-03-05 19:32 | NUR ---
WALKING ROUNDS PERFORMED, RECEIVED PT LAYING SEMI FOWLERS IN BED, AAOX3, RR EVEN AND NON-LABORED, O2 BY NC AT 2L. BILATERAL LOWER EXTREMITIES HURTING AT THIS TIME. LEFT PT LAYING SEMI FOWLERS IN BED, BED IN LOW LOCKED POSITION, SIDE RAILS UPX2, CALL LIGHT AND PHONE WITHIN REACH.
[2018-03-05] MEDS: ACETAMINOPHEN 325 MG TAB PO PRN (20:02)
[2018-03-06] VITALS (8 sets, daily range): BP systolic 111–139; BP diastolic 58–64
[2018-03-06] MEDS: BALSAM PERU/CASTOR OIL 60 GM OINT...G. TP SCH ×2 (05:56→22:00)
[2018-03-06] MEDS: BUMETANIDE INJ 0.25MG/ML 4ML VIAL IV SCH ×3 (05:56→22:00)
[2018-03-06] MEDS: NYSTATIN/TRIAMCINOLONE 15 GM CR TOP SCH (05:57)
--- NOTE | 2018-03-06 07:23 | NUR ---
Rcvd patient in report this am. Patient is asleep in bed. Family at bedside. No s/s of distress noted
[2018-03-06] MEDS: ALBUTEROL/IPRATROPIUM 3 ML NEB NEB SCH ×3 (07:33→20:15)
[2018-03-06] MEDS: SPIRONOLACTONE 25 MG TAB PO SCH (08:29)
[2018-03-06] MEDS: APIXABAN 5 MG TABLET PO SCH (08:29)
[2018-03-06] MEDS: POTASSIUM CHLORIDE 10MEQ EA PO SCH (08:29)
[2018-03-06] MEDS: FLECAINIDE ACETATE 100 MG TAB PO SCH ×2 (08:30→22:00)
[2018-03-06] MEDS: METOPROLOL TARTRATE 50 MG TAB PO SCH ×2 (08:30→22:00)
[2018-03-06] MEDS: POLYETHYLENE GLYCOL 3350 17 GM PACK PO SCH (09:00)
[2018-03-06] MEDS: CEFEPIME 1GM/NS 0.9% 50 ML 50 ML IV SCH (09:00)
[2018-03-06] MEDS: COLLAGENASE OINTMENT 30 GM TUBE TP SCH (09:12)
--- NOTE | 2018-03-06 10:07 | NUR ---
Patient is AAOx3. Patient lung gonzalez diminished to auscultation. Bowel sounds present x4. 2+ edema noted to BLE. Patient does have some shortness of breath on exertion. O2 at 2L NC. Patient ambulates with assist. Selby catheter in place for strict output. Some hematuria noted. No c/o pain. Bilateral leg wounds noted. Dressings clean and dry. Wound care to be performed after shower.
--- NOTE | 2018-03-06 11:41 | NUR ---
Wound care performed to bilateral lower extremities. Cleansed both wounds with normal saline and applied wet to dry santyl. Patient tolerated well
[2018-03-06 12:41] LABS: ANION GAP 11.4 mmol/L (8-16); CALCIUM 9.5 mg/dL (8.4-10.2); CREATININE, SERUM 1.15 mg/dL (0.57-1.11); POTASSIUM 4.4 mmol/L (3.5-5.1)
--- NOTE | 2018-03-06 12:52 | NUR ---
Critical CO2 reported and informed MD and no new orders
--- NOTE | 2018-03-06 13:11 | Progress Note ---
DATE: March 06, 2018 CARDIOLOGY PROGRESS NOTE SUBJECTIVE: The patient denies chest pain. She continued to have oxygen desaturation with ambulation. OBJECTIVE VITALS: Temperature 97.4 degrees, pulse 60, respiratory rate 19, blood pressure 131/63, oxygen saturation 96% on 2 liters nasal cannula. GENERAL: Obese woman, in no acute distress, awake and alert. LUNGS: Diminished breath sounds at bilateral bases. No wheezes or crackles. CARDIOVASCULAR: Normal rate, regular rhythm. No murmur. Normal S1 and S2. ABDOMEN: Soft, nontender. EXTREMITIES: 2+ pitting edema with dressing noted. CARDIAC MEDICATIONS 1. Metoprolol tartrate 50 mg p.o. q.12 hours. 2. Apixaban 5 mg p.o. daily. 3. Spironolactone 25 mg p.o. daily. 4. Bumex 1 mg IV q.8 hours. LABS: None today. IMPRESSIONS 1. Ldcfd-nu-topwilx diastolic heart failure. 2. Left lower extremity wound with cellulitis. 3. History of pulmonary embolism/deep venous thrombosis, on apixaban. 4. Hypertension. RECOMMENDATIONS: Continue diuretics. Labs today. Please discharge patient on Bumex 1 mg p.o. b.i.d. Continue current cardiac medications otherwise. Thank you for this consult. We will continue to follow. Job#: [id number] TAMMY
[2018-03-07] VITALS (7 sets, daily range): BP systolic 126–139; BP diastolic 60–63
[2018-03-07] MEDS: ALBUTEROL/IPRATROPIUM 3 ML NEB NEB SCH ×4 (00:15→20:00)
[2018-03-07 05:38] LABS: BASOPHILS % 0.5 % (0.0-1.0); EOSINOPHILS # (AUTO) 0.2 (0.0-0.4); EOSINOPHILS % 4.5 % (0.0-6.0); HEMATOCRIT 32.8 % (34.2-44.1); HEMOGLOBIN 9.6 g/dL (12.0-16.0); LYMPHOCYTES # (AUTO) 0.5 (1.0-3.2); LYMPHOCYTES % 11.8 % (18.0-39.1); MEAN CORPUSCULAR HEMOGLOBIN 26.3 pg (28-32); MEAN CORPUSCULAR HGB CONC 29.3 g/dL (31-35); MEAN CORPUSCULAR VOLUME 89.9 fL (81-99); MONOCYTES # (AUTO) 0.8 (0.2-0.8); MONOCYTES % 17.9 % (4.4-11.3); NEUTROPHILS # (AUTO) 2.9 (2.1-6.9); NEUTROPHILS % 65.1 % (38.7-80.0); PLATELET COUNT 140 x10e3/uL (140-360); RED BLOOD COUNT 3.65 x10e6/uL (3.6-5.1)
[2018-03-07 06:02] LABS: ALBUMIN/GLOBULIN RATIO 0.9 (0.8-2.0); CALCIUM 9.3 mg/dL (8.4-10.2); CREATININE, SERUM 1.07 mg/dL (0.57-1.11)
[2018-03-07] MEDS ORDERED: CEFEPIME 1GM/NS 0.9% 50 ML 50 ML IV SCH (06:15)
[2018-03-07] MEDS: BUMETANIDE INJ 0.25MG/ML 4ML VIAL IV SCH ×3 (06:15→22:55)
--- NOTE | 2018-03-07 07:19 | NUR ---
Received patient and walking rounds complete. Patient resting in bed, no signs of distress noted at this time. Bed in lowest position, wheels locked, side rails up x2, call light in reach.
--- NOTE | 2018-03-07 07:56 | NUR ---
Removed patients Selby, catheter tip was intact.
[2018-03-07] MEDS: SPIRONOLACTONE 25 MG TAB PO SCH (08:55)
[2018-03-07] MEDS: POTASSIUM CHLORIDE 10MEQ EA PO SCH (08:55)
[2018-03-07] MEDS: METOPROLOL TARTRATE 50 MG TAB PO SCH ×2 (08:55→21:59)
[2018-03-07] MEDS: APIXABAN 5 MG TABLET PO SCH (08:55)
[2018-03-07] MEDS: POLYETHYLENE GLYCOL 3350 17 GM PACK PO SCH (08:56)
[2018-03-07] MEDS: FLECAINIDE ACETATE 100 MG TAB PO SCH ×2 (08:56→21:59)
[2018-03-07] MEDS: CEFEPIME 1GM/NS 0.9% 50 ML 50 ML IV SCH ×2 (09:24→21:59)
[2018-03-07] MEDS: NYSTATIN/TRIAMCINOLONE 15 GM CR TOP SCH (10:17)
[2018-03-07] MEDS: BALSAM PERU/CASTOR OIL 60 GM OINT...G. TP SCH ×2 (10:18→21:59)
[2018-03-07] MEDS: COLLAGENASE OINTMENT 30 GM TUBE TP SCH (10:18)
--- NOTE | 2018-03-07 11:14 | NUR ---
Patient A/O X3, even respirations on 2L NC. Bowel sounds present, last BM yesterday 03/06/18. 1+ pitting bilateral lower extremity edema. Bilateral lower extremity ulcers, lower abdominal fold rash and maceration on sacral crease. Patient denies pain at this time. Will continue to monitor.
--- NOTE | 2018-03-07 11:46 | NUR ---
Dressing changes performed. Applied Santyl to both lower extremity ulcers, covered with 4x4 gauze saturated in sterile water and then dry 4x4 gauze, wrapped with Kerlix. Applied Nystatin below breast folds. Applied Venelex ointment to sacral crease.
--- NOTE | 2018-03-07 16:10 | Progress Note ---
DATE: March 07, 2018 CARDIOLOGY PROGRESS NOTE SUBJECTIVE: No major events overnight. Feels a lot better. OBJECTIVE VITAL SIGNS: Temperature 96.8, pulse 55, respiratory rate 19, blood pressure 126/60, and satting 95% on 2 liters nasal cannula. GENERAL: Obese woman, in no acute distress. Awake, alert, and oriented. LUNGS: Clear to auscultation bilaterally. Diminished breath sounds at the bases. CARDIOVASCULAR: Regular rate and rhythm. No murmurs, rubs or gallops. Palpable radial pulses. Palpable carotid pulses. ABDOMEN: Soft, nontender. Obese. NEURO AND PSYCH: Alert and oriented to person, place, and time. Normal affect. CARDIOVASCULAR MEDICATIONS: Reviewed. LABORATORY DATA: Reviewed. TELEMETRY DATA: Reviewed, normal sinus rhythm. ASSESSMENT 1. Ccjdj-rx-rgmcrmc diastolic heart failure. 2. Left lower extremity wound with cellulitis. 3. History of pulmonary embolism and deep vein thrombosis, on apixaban. 4. Hypertension. RECOMMENDATION: Continue diuretics. Doing well. Plan for discharge tomorrow. Please discharge patient on bumetanide 1 mg p.o. b.i.d.. Continue other cardiovascular medications, otherwise. Thank you for this consult. We will continue to follow. Job#: [id number] AMILCAR
--- NOTE | 2018-03-07 22:47 | NUR ---
cleansed with ns and redressed bilat leg ulcers per wound care orders. right FA 20g iv leaking, removed with tip intact. new iv to be started.
[2018-03-08] VITALS: BP 146/67
[2018-03-08] MEDS: ALBUTEROL/IPRATROPIUM 3 ML NEB NEB SCH ×2 (01:00→07:30)
[2018-03-08 04:00] VITALS: BP 132/61
[2018-03-08] MEDS: BUMETANIDE INJ 0.25MG/ML 4ML VIAL IV SCH (06:37)
--- NOTE | 2018-03-08 07:01 | NUR ---
Received patient and walking rounds complete. Patient sitting up in bed awake, no signs of distress. Bed in lowest position, wheels locked, side rails up x2, call light in reach. Will continue to monitor.
[2018-03-08] MEDS ORDERED: BUMETANIDE1 MG PO (07:27)
[2018-03-08 08:07] VITALS: BP 152/67
--- NOTE | 2018-03-08 08:40 | NUR ---
Removed patients IV. Catheter tip intact and pressure dressing applied.
[2018-03-08] MEDS: SPIRONOLACTONE 25 MG TAB PO SCH (08:44)
[2018-03-08] MEDS: APIXABAN 5 MG TABLET PO SCH (08:44)
[2018-03-08] MEDS: POTASSIUM CHLORIDE 10MEQ EA PO SCH (08:45)
[2018-03-08] MEDS: FLECAINIDE ACETATE 100 MG TAB PO SCH (08:45)
[2018-03-08] MEDS: METOPROLOL TARTRATE 50 MG TAB PO SCH (08:45)
[2018-03-08] MEDS: POLYETHYLENE GLYCOL 3350 17 GM PACK PO SCH (08:45)
[2018-03-08] MEDS: CEFEPIME 1GM/NS 0.9% 50 ML 50 ML IV SCH (08:46)
[2018-03-08] MEDS: BALSAM PERU/CASTOR OIL 60 GM OINT...G. TP SCH (09:00)
[2018-03-08] MEDS: NYSTATIN/TRIAMCINOLONE 15 GM CR TOP SCH (09:00)
[2018-03-08] MEDS: COLLAGENASE OINTMENT 30 GM TUBE TP SCH (09:00)
--- NOTE | 2018-03-08 09:00 | NUR ---
Patient A/O X3, no signs of distress noted. Respirations even and unlabored, on 2L NC. Bowel movement yesterday, bowel sounds present. Patient is ambulatory with a walker. Bilateral 1+ pitting edema on ankles. Bilateral ulcers on lower extremities with dressing in place. Lower abdominal fold rash and sacral crease maceration. Patient denies pain at this time.
--- NOTE | 2018-03-08 09:08 | NUR ---
Patient discharged from facility, left unit in wheelchair and left via private auto to home. Patient gathered all personal belongings. Discharge information given to patient included with follow up information and education. Patient verbalized understanding of discharge information. No signs of distress noted at discharge.
[2018-03-08 09:11] VITALS: BP 152/67
== END 2018-03-08 09:08 | disposition home or self-care (01) | DRG 292 ==
LOC: ER 13:00 → ERHOLD 18:38 → MED/SURG 20:45
PROVIDERS: ADMIT Internal Medicine; ATTEND Internal Medicine
DX: I11.0 Hypertensive heart disease with heart failure (principal); L03.116 Cellulitis of left lower limb; L97.921 Non-pressure chronic ulcer of unspecified part of left lower leg limited to breakdown of skin; L97.911 Non-pressure chronic ulcer of unspecified part of right lower leg limited to breakdown of skin; Z68.42 Body mass index [BMI] 45.0-49.9, adult; J96.10 Chronic respiratory failure, unspecified whether with hypoxia or hypercapnia; I50.33 Acute on chronic diastolic (congestive) heart failure; I87.2 Venous insufficiency (chronic) (peripheral); Z99.81 Dependence on supplemental oxygen; G47.33 Obstructive sleep apnea (adult) (pediatric); D64.9 Anemia, unspecified; E66.01 Morbid (severe) obesity due to excess calories; Z86.711 Personal history of pulmonary embolism; Z86.718 Personal history of other venous thrombosis and embolism; Z79.01 Long term (current) use of anticoagulants; E87.6 Hypokalemia
CPT/HCPCS: 36415; 51700; 71045; 80048; 80053; 82550; 82553; 82948; 83735; 83880; 84484; 85025; 93005; 93306; 94640; 97139; 99284; J0692; J1940; J7050

== ENCOUNTER 2018-07-11 14:40 | Inpatient (IN) | payer BC, MEDICARE ==
[2018-07-11] VITALS (19 sets, daily range): BP systolic 99–129; BP diastolic 45–69
[~2018-07-11] VITALS: Ht 170.2 cm; Wt 122.0 kg
[~2018-07-11 14:40] MED LIST changes: +BUMETANIDE1 MG PO; +TYLENOL325 MG PO
[2018-07-11] MEDS ORDERED: ASPIRIN 81 MG CHEW TAB PO ONE (14:45)
[2018-07-11] MEDS ORDERED: FUROSEMIDE INJ 10 MG/ML 4 ML VIAL IV ONE (14:45)
[2018-07-11] MEDS ORDERED: NITROGLYCERIN 2% OINT 1 GM PKT TOP ONE (14:45)
[2018-07-11] MEDS ORDERED: FUROSEMIDE INJ 10 MG/ML 4 ML VIAL ONE ×2 (14:47→14:49)
[2018-07-11] MEDS ORDERED: NITROGLYCERIN 2% OINT 1 GM PKT ONE (14:49)
[2018-07-11 15:17] LABS: BASOPHILS % 0.3 % (0.0-1.0); EOSINOPHILS # (AUTO) 0.1 (0.0-0.4); EOSINOPHILS % 0.5 % (0.0-6.0); HEMOGLOBIN 9.8 g/dL (12.0-16.0); LYMPHOCYTES # (AUTO) 0.5 (1.0-3.2); LYMPHOCYTES % 3.8 % (18.0-39.1); MEAN CORPUSCULAR HEMOGLOBIN 23.3 pg (28-32); MEAN CORPUSCULAR HGB CONC 28.8 g/dL (31-35); MEAN CORPUSCULAR VOLUME 80.8 fL (81-99); MONOCYTES # (AUTO) 1.4 (0.2-0.8); MONOCYTES % 11.2 % (4.4-11.3); NEUTROPHILS # (AUTO) 10.7 (2.1-6.9); NEUTROPHILS % 83.8 % (38.7-80.0); PLATELET COUNT 201 x10e3/uL (140-360); RED BLOOD COUNT 4.21 x10e6/uL (3.6-5.1)
--- NOTE | 2018-07-11 15:35 | Diagnostic Imaging Report ---
Examination: Single AP view of the chest. COMPARISON: February 28, 2018 INDICATION: Unresponsive DISCUSSION: Lines/tubes: None. Lungs: Interstitial pulmonary edema. Pleura: No pleural effusion or pneumothorax. Heart and mediastinum: Cardiomegaly. Bones and soft tissues: No acute bony abnormalities. IMPRESSION: 1. Cardiomegaly with interstitial edema. Signed by: Dr. Alexander Carrillo M.D. on 07/11/2018 3:32 PM
[2018-07-11 15:36] LABS: ALBUMIN 3.3 g/dL (3.5-5.0); ALBUMIN/GLOBULIN RATIO 0.8 (0.8-2.0); ANION GAP 13.6 mmol/L (8-16); CALCIUM 9.2 mg/dL (8.4-10.2); CREATININE, SERUM 1.19 mg/dL (0.57-1.11); MAGNESIUM 2.1 MG/DL (1.3-2.1); POTASSIUM 4.6 mmol/L (3.5-5.1)
[2018-07-11] MEDS ORDERED: NEXIUM20 MG PO (15:40)
[2018-07-11] MEDS ORDERED: FUROSEMIDE40 MG PO (15:40)
[2018-07-11 15:43] LABS: INR 1.31; PROTHROMBIN TIME 16.9 seconds (11.9-14.5)
[2018-07-11 15:44] LABS: PARTIAL THROMBOPLASTIN TIME 35.6 seconds (23.8-35.5)
[2018-07-11 15:56] LABS: CREATINE KINASE MB 0.4 ng/mL (0-5.0); THYROID STIMULATING HORMONE 0.833 uIU/mL (0.350-4.940)
[2018-07-11 15:59] LABS: B-TYPE NATRIURETIC PEPTIDE2 2240.7 pg/mL (0-100)
[2018-07-11 16:34] LABS: CLARITY,URINE SL CLOUDY (CLEAR); COLOR,URINE YELLOW (YELLOW)
[2018-07-11 16:35] LABS: BILIRUBIN,URINE NEGATIVE (NEGATIVE); KETONES,URINE NEGATIVE (NEGATIVE); LEUKOCYTE ESTERASE ,URINE 2+ (NEGATIVE); NITRITE,URINE POSITIVE (NEGATIVE); PROTEIN,URINE DIPSTICK TRACE (NEGATIVE); URINE UROBILINOGEN 0.2 mg/dL (0.2 - 1)
[2018-07-11 16:35] LABS: ABG HCO3 40 mmol/L (23-28); ABG PCO2 67 mmHg (41-51); ABG PH 7.39 (7.31-7.41); ABG PO2 344 mmHg (80-105)
[2018-07-11 16:44] LABS: BACTERIA,URINE MANY /HPF; EPITHELIAL CELLS,URINE MODERATE /LPF; WBC,URINE (MAN) >50 /HPF (0-5)
[2018-07-11 16:47] LABS: LYMPHOCYTES % (MANUAL) 1 % (19-48); MONOCYTES % (MANUAL) 9 % (3.4-9.0); NEUTROPHILS % (MANUAL) 89 % (40-74)
[2018-07-11 16:48] LABS: ANISOCYTOSIS SLIGHT; HYPOCHROMASIA MARKED; PLATELET ESTIMATE ADEQUATE; PLATELET MORPHOLOGY COMMENT NORMAL; RBC MORPHOLOGY COMMENT ABNORMAL
[2018-07-11] MEDS ORDERED: SODIUM CHLORIDE 0.9% 1000ML 1,000 ML ONE (16:49)
[2018-07-11] MEDS: CEFTRIAXONE SOD 1 GM/NS 50 ML 50 ML IV SCH (17:06)
--- NOTE | 2018-07-11 17:30 | NUR ---
consent for central line signed and placed into chart
[2018-07-11] MEDS: FUROSEMIDE INJ 10 MG/ML 4 ML VIAL IV SCH (17:49)
--- NOTE | 2018-07-11 17:56 | NUR ---
RT called for repeat ABG at this time.
--- NOTE | 2018-07-11 18:38 | Diagnostic Imaging Report ---
Examination: Single AP view of the chest. COMPARISON: 07/11/2018 INDICATION: Chest line placement DISCUSSION: Lines/tubes: Right IJ central venous catheter with tip overlying the high right atrium. Lungs: Mild edema. Pleura: No pleural effusion or pneumothorax. Heart and mediastinum: Cardiomegaly. Bones and soft tissues: No acute bony abnormalities. IMPRESSION: Right IJ catheter with tip overlying the high right atrium Signed by: Dr. Alexander Carrillo M.D. on 07/11/2018 6:34 PM
--- NOTE | 2018-07-11 19:27 | NUR ---
repeat abg obtained, pt tolerated well
--- NOTE | 2018-07-11 19:50 | Diagnostic Imaging Report ---
Examination: Single AP view of the chest. COMPARISON: AP chest 07/11/2018 INDICATION: Central line placement IMPRESSION: 1. Lines and Tubes: Right-sided IJ venous line has distal tip projecting in the cavoatrial junction 2. Otherwise no interval change. Signed by: Dr. Sherwin Armenta M.D. on 07/11/2018 7:47 PM
[2018-07-11 23:01] LABS: ABG PH 7.37 (7.31-7.41)
[2018-07-11 23:02] LABS: ABG HCO3 40 mmol/L (23-28); ABG PCO2 70 mmHg (41-51); ABG PO2 98 mmHg (80-105)
[2018-07-11 23:30] LABS: CREATINE KINASE MB 0.3 ng/mL (0-5.0)
[2018-07-12] VITALS (43 sets, daily range): BP systolic 85–148; BP diastolic 36–74
[2018-07-12 05:21] LABS: BASOPHILS % 0.3 % (0.0-1.0); EOSINOPHILS % 0.4 % (0.0-6.0); HEMATOCRIT 31.5 % (34.2-44.1); LYMPHOCYTES # (AUTO) 0.7 (1.0-3.2); LYMPHOCYTES % 6.6 % (18.0-39.1); MEAN CORPUSCULAR HGB CONC 28.6 g/dL (31-35); MEAN CORPUSCULAR VOLUME 80.4 fL (81-99); MONOCYTES # (AUTO) 1.6 (0.2-0.8); MONOCYTES % 14.7 % (4.4-11.3); NEUTROPHILS # (AUTO) 8.4 (2.1-6.9); NEUTROPHILS % 77.5 % (38.7-80.0); PLATELET COUNT 163 x10e3/uL (140-360); RED BLOOD COUNT 3.92 x10e6/uL (3.6-5.1); RED CELL DISTRIBUTION WIDTH 19.1 % (11.7-14.4)
[2018-07-12 05:45] LABS: ANION GAP 11.2 mmol/L (8-16); CREATININE, SERUM 1.05 mg/dL (0.57-1.11); POTASSIUM 4.2 mmol/L (3.5-5.1)
--- NOTE | 2018-07-12 06:07 | NUR ---
Paged doctor around 2100 regarding repeat ABG results. Order received to continue patient on BIPAP overnight. ECHO ordered and cardiology consulted. per doctor Bear monaco for s[place]ight.
[2018-07-12 06:23] LABS: CREATINE KINASE MB 0.3 ng/mL (0-5.0)
--- NOTE | 2018-07-12 06:35 | Diagnostic Imaging Report ---
Examination: Single AP view of the chest. COMPARISON: AP chest 07/11/2018 INDICATION: CHF, unresponsive IMPRESSION: 1. Lines and Tubes: Stable right-sided IJ venous line with distal tip projecting at the cavoatrial junction. 2. Lungs are well-inflated. Interval worsening of central venous congestion and bilateral interstitial edema. No effusion. 3. Stable enlargement of the cardiac silhouette. 4. No acute bony abnormalities. Signed by: Dr. Sherwin Armenta M.D. on 07/12/2018 6:32 AM
[2018-07-12] MEDS ORDERED: FUROSEMIDE INJ 10 MG/ML 4 ML VIAL IV ONE (07:30)
[2018-07-12] MEDS ORDERED: NON-FORMULARY MEDICATION (Flecainide Acetate 100 MG) PO SCH (07:45)
[2018-07-12] MEDS: FUROSEMIDE INJ 10 MG/ML 4 ML VIAL IV SCH ×2 (08:16→16:03)
[2018-07-12] MEDS: APIXABAN 5 MG TABLET PO SCH (08:28)
[2018-07-12] MEDS: PANTOPRAZOLE 40 MG 10ML VIAL IV SCH ×3 (08:28→08:31)
[2018-07-12] MEDS: PANTOPRAZOLE SOD 40 MG TABEC PO SCH (08:28)
[2018-07-12] MEDS ORDERED: FLECAINIDE ACETATE 100 MG TAB PO SCH (09:00)
[2018-07-12] MEDS ORDERED: NON-FORMULARY MEDICATION ([Apixaban] 5 MG) PO SCH (09:00)
[2018-07-12] MEDS: CLINDAMYCIN 300MG 50 ML IV SCH ×3 (11:23→23:30)
[2018-07-12 13:44] LABS: CREATINE KINASE MB 0.3 ng/mL (0-5.0)
--- NOTE | 2018-07-12 14:49 | History and Physical ---
CHIEF COMPLAINT: Shortness of breath and congestion. HISTORY OF PRESENT ILLNESS: Ms. Candice Britt is a 67-year-old female comes with shortness of breath and weakness. Ms. Candice Britt with history of diabetes mellitus, DVT, coronary artery disease, CHF, and hypertension in her usual state of health until two days prior to admission, the daughter noticed that the patient had some mental status changes, did let go by. The patient on the day of admission was found to have hypoxia, mental status changes, difficulty with breathing. The patient came to the emergency room, was found to have acute CHF, was hypoxic, was also having acute respiratory failure, hypercapnic, and admitted to the ICU for CHF exacerbation. PAST MEDICAL HISTORY: History of CHF, history of hypertension, history of diabetes, history of DVT, history of CAD, history of PE, history of colon cancer in the past. PAST SURGICAL HISTORY: Includes cholecystectomy, hernia repair, and colon resection recently for a colon cancer. MEDICATIONS: At home include: 1. Tylenol. 2. Edarbyclor 40 mg. 3. Esomeprazole 20 mg daily. 4. Flecainide 100 mg daily. 5. Furosemide 40 mg daily. 6. Metoprolol 50 mg daily. 7. Potassium chloride 10 mEq tablets. 8. Apixaban 5 mg daily. REVIEW OF SYSTEMS: Negative for chest pain. Positive for shortness of breath. Positive for some nausea. No vomiting or diarrhea. No constipation. No rectal bleeding. No hematochezia. No hematemesis. No blurry vision. No diplopia. No headaches. ALLERGIES: NO DRUG ALLERGIES NOTED. PHYSICAL EXAMINATION: VITAL SIGNS: Temperature is 64, respirations of 16, blood pressure is 101/40 on dopamine, pulse oximetry of 95%. The patient is currently on BiPAP. HEENT: Normocephalic, atraumatic. The patient has BiPAP on board. CVS: S1 and S2 distant. Regular rate and rhythm. ABDOMEN: Nontender and nondistended. EXTREMITIES: Bilateral lower extremities with increased erythema, increased redness and swelling in the right lower extremity consistent with cellulitis and 2+ edema. LABORATORY VALUES: White count is 12,000, hemoglobin of 9.8, hematocrit of 34. The patient has a left shift, 10.7 neutrophil. Coags; INR of 1.31, PT of 6.9. Chemistries; sodium is 142, potassium 4.2, BUN of 24, creatinine of 1.05. Lactic acid was negative. The patient's BNP was 2240. Troponins have been negative so far. IMAGING STUDIES: Initial chest x-ray showed cardiomegaly with interstitial edema. Second x-ray was done yesterday, also showed IJ placement and has no interval changes. Today's x-ray did show some worsening of interstitial edema. MICROBIOLOGY: Urine culture pending and blood culture pending. IMAGING STUDIES: Not done. ASSESSMENT: Acute congestive heart failure, acute hypercapnic hypoxia, history of diabetes mellitus, history of coronary artery disease, history of deep vein thrombosis with pulmonary embolism, and history of colon cancer. PLAN: 1. Plan is to diurese her very slowly judiciously. The patient has hypertension. Is currently on dopamine . 2. Liquid restriction. 3. We will keep the patient n.p.o. 4. Consult with Dr. Spence. 5. The patient will be given 10 mg of Lasix. I's and O's will be noted. 6. Start on clindamycin 300 mg q.6 hours for her cellulitis of the lower extremities and continue to monitor the patient. Continue with BiPAP at this time. MD BELLE Zavaleta/MODL /[id number]
[2018-07-12] MEDS: CEFTRIAXONE SOD 1 GM/NS 50 ML 50 ML IV SCH (16:03)
--- NOTE | 2018-07-12 18:44 | Consultation ---
DATE OF CONSULTATION: Cardiology Consultation CONSULTING PHYSICIAN: Dr. Sifuentes. REASON FOR CONSULTATION: Shortness of breath and congestive heart failure. HISTORY OF PRESENT ILLNESS: Mrs. Britt is a 67-year-old female who is well known to our practice who states that her daughter brought her to the Emergency Room due to her noticing her mom being disoriented and also experiencing some chills yesterday and was concerned about heart increased, need of oxygen at home. She reports that prior to yesterday she has been in her usual state of health, however, needing more oxygen, especially upon exertion. At the present time, she denies any chest pain, palpitations, fever, chills, abdominal discomfort. Does endorse bilateral lower extremity swelling, which has been improving. And also some shortness of breath especially with exertion or talking. REVIEW OF SYSTEMS: Negative except as mentioned above. PAST MEDICAL HISTORY: 1. Chronic diastolic heart failure. 2. History of PE, DVT. 3. History of chronic respiratory failure on home oxygen. 4. Hypertension. PAST SURGICAL HISTORY: 1. twice. 2. Cholecystectomy with hernia surgery. 3. Recent colon cancer, status post resection. SOCIAL HISTORY: Denies tobacco or illicit drug use or alcohol intake. FAMILY HISTORY: Noncontributory. CARDIOVASCULAR MEDICATIONS: 1. Lasix 40 mg IV b.i.d. 2. Plavix mg p.o. daily. 3. Flecainide 100 mg p.o. q.12 hours. 4. Dopamine IV titrate. LABORATORY DATA: WBC 10.86, hemoglobin 9.0, hematocrit 31.5, platelets 163. Sodium 142, potassium 4.2, BUN 24, creatinine 1.05, glucose 102, calcium 9.0. BNP 2858.9. Troponin 0.008. Chest x-ray from today with lungs well inflated. Interval worsening of congestion and bilateral interstitial edema. No effusion. Stable, enlarged cardiac silhouette. Telemetry is sinus rhythm with first-degree AV block. PHYSICAL EXAMINATION: VITAL SIGNS: Temperature 97.1, pulse 62, respiratory rate 18, blood pressure 102/50, oxygen saturation 96% on 4 L nasal cannula. GENERAL: Alert and oriented x3. Resting comfortably in bed. Does not appear to be in any acute distress. LUNGS: Diminished breath sounds anterior lower lobes, otherwise clear to auscultation. No wheezing. No rhonchi or crackles. CARDIOVASCULAR: Regular rate and rhythm. Normal S1, S2. 2/6 systolic ejection murmur present. ABDOMEN: Soft, nontender. Normoactive bowel sounds. EXTREMITIES: Lower extremities, 2+ pitting edema. NECK: Supple. No JVD noted. IMPRESSION: 1. Tbfie-fu-fvuhutk diastolic heart failure exacerbation. 2. Bilateral lower extremity edema. 3. History of pulmonary emboli and DVT. Continues to be on Eliquis. 4. Hypotension. RECOMMENDATION: Echocardiogram has been ordered. Awaiting review and recommendations, we will follow. Continue IV diuresis at this time. Continue the above-listed cardiac medication. The patient is being weaned off dopamine and tolerating it. Monitor blood pressure closely. Antimicrobial therapy per primary team. Maintain on telemetry at all time. Add beta-mukund to the above medications. Thank you Dr. Sifuentes for this consultation. We will continue to follow this patient. Dictated by Zabrina Chan NP MD WHIT Tabares/JOHN /[id number]
[2018-07-13] VITALS (23 sets, daily range): BP systolic 106–162; BP diastolic 48–130
--- NOTE | 2018-07-13 05:40 | NUR ---
Dr. Pelayo aware of preliminary urine culture results. No new orders received.
[2018-07-13 05:44] LABS: BASOPHILS % 0.2 % (0.0-1.0); EOSINOPHILS # (AUTO) 0.1 (0.0-0.4); EOSINOPHILS % 1.4 % (0.0-6.0); HEMATOCRIT 29.6 % (34.2-44.1); LYMPHOCYTES # (AUTO) 0.6 (1.0-3.2); LYMPHOCYTES % 8.3 % (18.0-39.1); MEAN CORPUSCULAR HGB CONC 28.4 g/dL (31-35); MEAN CORPUSCULAR VOLUME 81.1 fL (81-99); MONOCYTES # (AUTO) 1.1 (0.2-0.8); MONOCYTES % 17.2 % (4.4-11.3); NEUTROPHILS # (AUTO) 4.8 (2.1-6.9); NEUTROPHILS % 72.4 % (38.7-80.0); PLATELET COUNT 152 x10e3/uL (140-360); RED BLOOD COUNT 3.65 x10e6/uL (3.6-5.1); RED CELL DISTRIBUTION WIDTH 19.1 % (11.7-14.4)
[2018-07-13 05:49] LABS: HEMOGLOBIN 8.4 g/dL (12.0-16.0)
[2018-07-13] MEDS: CLINDAMYCIN 300MG 50 ML IV SCH ×3 (06:01→18:55)
[2018-07-13 06:06] LABS: ALBUMIN 2.6 g/dL (3.5-5.0); ALBUMIN/GLOBULIN RATIO 0.7 (0.8-2.0); CALCIUM 8.9 mg/dL (8.4-10.2); CREATININE, SERUM 1.18 mg/dL (0.57-1.11); MAGNESIUM 2.1 MG/DL (1.3-2.1)
--- NOTE | 2018-07-13 06:18 | NUR ---
R IJ central line dressing changed as dressing soiled. Dressing changed using sterile technique. Three lumens flushed, caps changed x 3. BLood return present in all lumens.
[2018-07-13] MEDS: FUROSEMIDE INJ 10 MG/ML 4 ML VIAL IV SCH ×2 (09:29→18:00)
[2018-07-13] MEDS: APIXABAN 5 MG TABLET PO SCH (09:29)
[2018-07-13] MEDS: PANTOPRAZOLE SOD 40 MG TABEC PO SCH (09:29)
[2018-07-13] MEDS: METOPROLOL TARTRATE 25 MG TAB PO SCH ×2 (09:29→17:00)
[2018-07-13] MEDS ORDERED: BENZOCAINE 20% SPR 60 ML CAN ONE (10:53)
--- NOTE | 2018-07-13 11:50 | NUR ---
1150 - pt moved from ICU 190 to OR holding on monitor and oxygen 4L/nc, Dr Casas speaking with patient. awaiting inspector plug seam. 1228 - pt received for JUANCARLOS/cardioversion, placed on bedside monitoring. pt positioned for procedure. IV site patent to Right IJ , VS wnl, NSR rythm 1232 - all responsible staff present, Timeout performed 1234 - Hurricaine spray withheld per Anesthesia/Lara 1233 - bite block positioned and JUANCARLOS probe passed 1234 - JUANCARLOS removed 1236 - JUANCARLOS probe reinserted 1241 - agitated saline injected for bubble study 1242 - JUANCARLOS probe removed , no gross trauma or distress observed 1248 - pt taken to ICU 190 for further recovery by anesthesia and CCL staff on monitor and oxygen 4L/nc 1250 - report off to Faheem SHUKLA, transfer of care
[2018-07-13] MEDS ORDERED: SODIUM CHLORIDE 0.9% 1000ML 1,000 ML ONE (12:09)
--- NOTE | 2018-07-13 12:47 | NUR ---
Nutrition Screen Note RD Recommendation for Physician: - When medically feasible recommend 1800 ADA, Cardiac diet - Diet education provided 07/13 Plan of Care: RD following, monitoring for tolerance and adequacy Nutrition reason for involvement: Nutrition Risk Trigger- MST, Dx of CHF Primary Diagnose(s): CHF exacerbation PMH: CHF, HTN, DM, CAD,colon cancer with resection, cholecystectomy, morbid obesity Ht: 67 in Wt: 316.13 lb BMI: 49.5 kg/m2 IBW: [address] Assessment: (07/13) 67 YOF admitted for CHF exacerbation seen today per MST score and CHF dx. Pt discussed during am rounds, JUANCARLOS planned for today. 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 Pt reports UBW of 203-207#, wt gain due to fluid. 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 Chart reviewed. Labs and meds reviewed. Education materials provided to pt's daughter at bedside upon return visit, pt out of room for procedure- no questions at time of visit. Will monitor and continue to follow. Current Diet: NPO- for procedure Malnutrition Evaluation (07/13/18) The patient does not meet criteria for a specified degree of malnutrition at this time. Will re-evaluate at follow-up as appropriate. Diet Education Needs Assessment: Diet education indicated, diet education provided 07/13/18. Learner(s): pt's daughter Barriers: none Cultural/Language Modifications: none Readiness: ready Method: handouts Topics: low sodium nutrition therapy, salt free seasoning Understanding/Compliance: fair per pt recall at time of assessment Nutrition Care Level: Low Signed: Madeline Smith RD, LD, [facility]
[2018-07-13 13:43] LABS: ANISOCYTOSIS SLIG; HYPOCHROMASIA MODERATE; PLATELET ESTIMATE SLIGHTLY DECREASED; PLATELET MORPHOLOGY COMMENT NORMAL; POIKILOCYTOSIS SLIGHT; RBC MORPHOLOGY COMMENT ABNORMAL
[2018-07-13] MEDS ORDERED: MIDAZOLAM HCL 2 MG/2 ML VIAL ONE (15:26)
[2018-07-13] MEDS ORDERED: FENTANYL CITRATE/PF 100MCG/2 ML INJ ONE (15:26)
[2018-07-13] MEDS ORDERED: FLUMAZENIL 0.5MG/ 5ML VIAL ONE (17:55)
[2018-07-13] MEDS ORDERED: NALOXONE HCL INJ 0.4 MG/ML AMP ONE (17:55)
[2018-07-13] MEDS: CEFTRIAXONE SOD 1 GM/NS 50 ML 50 ML IV SCH (18:00)
--- NOTE | 2018-07-13 21:04 | Progress Note ---
DATE: 07/13/2018 Cardiology Progress Note SUBJECTIVE: No major events overnight. Had a JUANCARLOS done today by me. OBJECTIVE: VITAL SIGNS: Temperature 98.2, pulse 63, respiratory rate 15, blood pressure 125/53, saturating 100% on 3 L nasal cannula. GENERAL: Elderly white female, in no acute distress. CARDIOVASCULAR: Regular rate and rhythm. No murmurs, rubs, or gallops. LUNGS: Bibasilar crackles. ABDOMEN: Obese, soft, nontender, nondistended. NEURO AND PSYCH: Alert and oriented to person, place, and time. Normal affect. INPATIENT MEDICATIONS: Reviewed. LABORATORY DATA: Reviewed. TELEMETRY DATA: Reviewed, shows normal sinus rhythm, first-degree AV block. ASSESSMENT/PLAN: 1. Acute on chronic diastolic heart failure exacerbation. 2. Bilateral lower extremity edema. 3. History of pulmonary emboli and deep venous thrombosis on Eliquis. 4. Hypotension. RECOMMENDATIONS: Had a JUANCARLOS done today. There is no significant valvular regurgitations seen. Hemodynamically, she is more stable now. We will continue to follow closely, close to euvolemic, antibiotics per primary team. We will continue to monitor closely. Thank you for this consult. We will continue to follow. MD PARISH Beck/JOHN /[id number]
[2018-07-14] VITALS (19 sets, daily range): BP systolic 109–154; BP diastolic 46–116
[2018-07-14] MEDS: CLINDAMYCIN 300MG 50 ML IV SCH ×4 (00:13→18:15)
[2018-07-14] MEDS: LEVOFLOXACIN 500MG/D5W 100ML 100 ML IV SCH (05:03)
[2018-07-14] MEDS: FUROSEMIDE INJ 10 MG/ML 4 ML VIAL IV SCH ×2 (08:21→18:12)
[2018-07-14] MEDS: APIXABAN 5 MG TABLET PO SCH (08:21)
[2018-07-14] MEDS: PANTOPRAZOLE SOD 40 MG TABEC PO SCH (08:21)
[2018-07-14] MEDS: METOPROLOL TARTRATE 25 MG TAB PO SCH ×2 (08:21→18:15)
--- NOTE | 2018-07-14 14:43 | NUR ---
WOUND CARE CONSULTATION- INITIAL EVALUATION Patient admitted from home to ER for SOB, Weakness, HTN, AMS. Presented with CHF exacerbation. HX: CHF, HTN, DM, DVT, CAD, PE, Colon Ca. Wound Care Consulted for BLE Ulcers. LABS: WBC6.63 HGB8.4 HCT29.6 NEUT%72.4 AZQ392 HBA1C5.6 ALB2.6 Urine CultureEnterobacter + PATIENT VISIT: Pleasant 67 year old female. Good historian. Presents with BLE Ulcerations, RLE more swollen than Left. States to have planned for vascular workup in outpatient setting but she became acutely ill and now admitted. RLE +3 edema, Presents with ulceration to lateral aspect of leg weeping serous fluid. periwound macerated. Skin is dry and scaly. States to have been using lotions to dryness at legs but has not gone away. Multiple blisters noted. some open and draining some closed and intact that are serous filled. Edema LLE +2- Ulceration to lateral aspect of leg( by calf area)- Annular ulcer that started off as a blister that ruptured. 100% granulation. Periwound reddened. States to have been using compression stockings at home but was very painful to do so, so she stopped using them. Mid gluteal fold - skin tear midline. Superficial. States to have been dealing with it for some time and comes and goes. Mostly hurts when " scooting over while getting in the car". Verbalizes she needs to get stronger so she can lift and not slide. Mid Abdominal folds - skin tears present bilaterally. area overly moist. States she has been struggling at home with care for the areas. Using soaps with lotions. Education provided with focus on moisture management and products to help manage. Verbalized understanding. Ministerio Score 17 Moderate PUP active OOB to bedside commode with supervision. 1 person assist. Skin condition of unknown etiology to bilateral upper inner thighs that are raised and hyperpigmented. Patient sates will see manager background for evaluation and treatment. Area non reddened, non raised, non tender. States only bothers her when she sits over extended periods of time. No pressure ulcers identified during visit. Additional information and measurements provided under Wound Assessment note linked to this note. IMPRESSION: 1.Bilateral Lower Extremities- Venous Stasis Ulcers 2. Abdominal Folds -Skin Tears/ Moisture Related 3. Mid Gluteal Fold-Skin Tear/ Moisture Related. RECOMMENDATION: ( if okay with cardiology, could benefit from compression) 1.Bilateral Lower Extremities- Venous Stasis Ulcers - Wash BLE with Hibiclens Soap and Pat Dry Thoroughly -Apply Xeroform Gauze over open areas then cover with ABD pad and secure with Kerlix Daily 2. Abdominal Folds - - Wash areas with mild soap and water then pat dry thoroughly - Apply Nystatin Cream q12h. 3. Mid Gluteal Fold- - Wash areas with mild soap and water then pat dry thoroughly - Apply Nystatin Cream q12h 4. Encourage OOB activity. 5. Shear friction precautions 6. Skin Tear Precautions. 7. Alternating Pressure Air Mattress 8. Offload Heels with Pillows While in Bed. 9. Encourage turning and repositioning every 2 hours. 10. Continue Moderate PUP Protocol Thank you for consulting with Wound Care. Addendum: 07/14/18 at 1502 by Butch Del Toro RN Amended: Links added.
--- NOTE | 2018-07-14 17:59 | Progress Note ---
DATE: 07/14/2018 Cardiology Progress Note SUBJECTIVE: No major events overnight. Feels a little better today. OBJECTIVE: VITAL SIGNS: Temperature afebrile, pulse 76, respiratory rate 18, blood pressure 117/62, and saturating 100% on 3 L nasal cannula. GENERAL: Obese white female, in no acute distress. CARDIOVASCULAR: Regular rate and rhythm. No murmurs, rubs, or gallops. LUNGS: Bibasilar crackles. ABDOMEN: Obese, soft, nontender, and nondistended. NEURO AND PSYCH: Alert and oriented to person, place, and time. Normal affect. INPATIENT MEDICATIONS: Reviewed. LABORATORY DATA: Reviewed. TELEMETRY DATA: Reviewed, shows normal sinus rhythm. ASSESSMENT: 1. Acute on chronic diastolic heart failure exacerbation. 2. Bilateral lower extremity edema. 3. History of pulmonary emboli and deep venous thrombosis, on Eliquis. 4. Hypotension. 5. Lower extremity cellulitis. RECOMMENDATIONS: Continue current cardiovascular medications including diuretics. We will continue to follow closely. Up titrate medications as blood pressure allows. We will start MARCO inhibitor if renal function stabilizes. Thank you for this consult. We will continue to follow. MD PARISH Beck/JOHN /[id number]
[2018-07-14] MEDS: ACETAMINOPHEN 325 MG TAB PO PRN (20:03)
[2018-07-14] MEDS: NYSTATIN 100,000 UNITS/GM CRM 30GM TUBE TOP SCH (20:04)
--- NOTE | 2018-07-14 20:58 | NUR ---
Handoff report given to NARGIS, Transfered pt to the med surg floor
[2018-07-15] VITALS (8 sets, daily range): BP systolic 127–155; BP diastolic 62–70
[2018-07-15] MEDS: CLINDAMYCIN 300MG 50 ML IV SCH ×5 (00:24→23:55)
[2018-07-15] MEDS: LEVOFLOXACIN 500MG/D5W 100ML 100 ML IV SCH (04:24)
[2018-07-15] MEDS: NYSTATIN 100,000 UNITS/GM CRM 30GM TUBE TOP SCH ×3 (06:47→21:00)
--- NOTE | 2018-07-15 07:00 | NUR ---
RECEIVED PATIENT RESTING IN BED. NO ACUTE DISTRESS NOTED. DENIES PAIN OR DISCOMFORT. CALL LIGHT WITHIN REACH. BED IN THE LOWEST POSITION.
[2018-07-15] MEDS: PANTOPRAZOLE SOD 40 MG TABEC PO SCH (08:26)
[2018-07-15] MEDS: APIXABAN 5 MG TABLET PO SCH (08:26)
[2018-07-15] MEDS: METOPROLOL TARTRATE 25 MG TAB PO SCH ×2 (08:26→16:55)
[2018-07-15] MEDS: FUROSEMIDE INJ 10 MG/ML 4 ML VIAL IV SCH ×2 (08:28→16:55)
[2018-07-15] MEDS ORDERED: SODIUM CHLORIDE 0.9% 250ML 250 ML ONE (11:27)
--- NOTE | 2018-07-15 18:12 | NUR ---
SMALL SKIN TEAR TO RIGHT POSTERIOR THIGH NOTED, 2X2 GAUZE APPLIED.
--- NOTE | 2018-07-15 19:08 | NUR ---
REPORT GIVEN TO ONCOMING NURSE, WALKING ROUNDS DONE. PATIENT IS SITTING UP IN RECLINER. DAUGHTER AT BEDSIDE. CALL LIGHT WITHIN REACH.
--- NOTE | 2018-07-15 20:05 | Progress Note ---
DATE: 07/15/2018 Cardiology Progress Note SUBJECTIVE: No major events overnight. OBJECTIVE: VITAL SIGNS: Temperature afebrile, pulse 67, respiratory rate 16, blood pressure 127/69, and saturating 96% on nasal cannula. GENERAL: Obese white female, in no acute distress. CARDIOVASCULAR: Regular rate and rhythm. No murmurs, rubs, or gallops. LUNGS: Bibasilar crackles. ABDOMEN: Obese, soft, nontender, nondistended. NEURO AND PSYCH: Alert and oriented to person, place, and time. Normal affect. INPATIENT MEDICATIONS: Reviewed. LABORATORY DATA: Reviewed. TELEMETRY DATA: Reviewed, shows normal sinus rhythm. ASSESSMENT AND PLAN: 1. Acute on chronic diastolic heart failure exacerbation. 2. Bilateral lower extremity edema. 3. History of pulmonary emboli and deep venous thrombosis on Eliquis. 4. Hypotension. 5. Lower extremity cellulitis. RECOMMENDATIONS: Continue current cardiovascular medications including diuretics. She is feeling better today. Plan for nuclear stress test tomorrow if continues to improve. Thank you for this consult. We will continue to follow. MD PARISH Beck/JOHN /[id number]
[2018-07-16] VITALS (8 sets, daily range): BP systolic 123–151; BP diastolic 58–67
--- NOTE | 2018-07-16 00:10 | NUR ---
CONSENT SIGNED BY PATIENT FOR STRESS TEST.
[2018-07-16] MEDS: LEVOFLOXACIN 500MG/D5W 100ML 100 ML IV SCH (04:00)
[2018-07-16] MEDS: CLINDAMYCIN 300MG 50 ML IV SCH ×3 (05:23→18:48)
--- NOTE | 2018-07-16 05:52 | NUR ---
DRESSING CHANGED TO BOTH LOWER EXTREMITIES.
[2018-07-16 06:04] LABS: BASOPHILS % 0.5 % (0.0-1.0); EOSINOPHILS # (AUTO) 0.3 (0.0-0.4); EOSINOPHILS % 6.1 % (0.0-6.0); HEMATOCRIT 29.6 % (34.2-44.1); HEMOGLOBIN 8.4 g/dL (12.0-16.0); LYMPHOCYTES # (AUTO) 0.5 (1.0-3.2); LYMPHOCYTES % 11.8 % (18.0-39.1); MEAN CORPUSCULAR HEMOGLOBIN 23.3 pg (28-32); MEAN CORPUSCULAR HGB CONC 28.4 g/dL (31-35); MONOCYTES # (AUTO) 0.8 (0.2-0.8); MONOCYTES % 18.6 % (4.4-11.3); NEUTROPHILS # (AUTO) 2.6 (2.1-6.9); NEUTROPHILS % 62.8 % (38.7-80.0); PLATELET COUNT 134 x10e3/uL (140-360); RED BLOOD COUNT 3.61 x10e6/uL (3.6-5.1); RED CELL DISTRIBUTION WIDTH 18.6 % (11.7-14.4)
[2018-07-16 06:24] LABS: ALANINE AMINOTRANSFERASE 9 IU/L (0-55); ALBUMIN 2.6 g/dL (3.5-5.0); ALBUMIN/GLOBULIN RATIO 0.7 (0.8-2.0); ALKALINE PHOSPHATASE 71 IU/L (40-150); ANION GAP 6.7 mmol/L (8-16); BLOOD UREA NITROGEN 17 mg/dL (7-26); BUN/CREATININE RATIO 20 (6-25); CALCIUM 8.9 mg/dL (8.4-10.2); CHLORIDE 95 mmol/L (98-107); CREATININE, SERUM 0.83 mg/dL (0.57-1.11); EST GLOMERULAR FILTRATION RATE > 60 ML/MIN (60-); GLUCOSE 96 mg/dL (74-118); POTASSIUM 3.7 mmol/L (3.5-5.1); SODIUM 143 mmol/L (136-145)
[2018-07-16 06:29] LABS: CARBON DIOXIDE 45 mmol/L (22-29)
--- NOTE | 2018-07-16 06:39 | NUR ---
DR. JACOBS NOTIFIED OF CO2 RESULT. NO NEW ORDERS.
--- NOTE | 2018-07-16 07:00 | NUR ---
RECEIVED PATIENT RESTING IN BED. NO ACUTE DISTRESS NOTED. CALL LIGHT WITHIN REACH. BED IN THE LOWEST POSITION.
[2018-07-16] MEDS: FUROSEMIDE INJ 10 MG/ML 4 ML VIAL IV SCH ×2 (08:05→17:50)
[2018-07-16] MEDS: NYSTATIN 100,000 UNITS/GM CRM 30GM TUBE TOP SCH ×2 (08:05→21:45)
[2018-07-16] MEDS ORDERED: REGADENOSON 0.4 MG/5 ML SYR IV ONE (09:20)
[2018-07-16 13:30] LABS: EOSINOPHILS % (MANUAL) 7 % (0-7); HYPOCHROMASIA SLIGHT; LYMPHOCYTES % (MANUAL) 21 % (19-48); METAMYELOCYTES % (MANUAL) 1 % (0-0); MONOCYTES % (MANUAL) 15 % (3.4-9.0); MYELOCYTES % (MANUAL) 2 % (0-0); NEUTROPHILS % (MANUAL) 54 % (40-74); RBC MORPHOLOGY COMMENT NORMAL
[2018-07-16 13:31] LABS: ANISOCYTOSIS SLIGHT; PLATELET ESTIMATE SLIGHTLY DECREASED; PLATELET MORPHOLOGY COMMENT FEW LARGE
[2018-07-16] MEDS: ACETAMINOPHEN 325 MG TAB PO PRN (13:50)
[2018-07-16] MEDS: PANTOPRAZOLE SOD 40 MG TABEC PO SCH (14:00)
[2018-07-16] MEDS: APIXABAN 5 MG TABLET PO SCH (14:00)
[2018-07-16] MEDS: METOPROLOL TARTRATE 25 MG TAB PO SCH ×2 (14:00→21:43)
--- NOTE | 2018-07-16 14:08 | NUR ---
CM SPOKE TO PATIENT AT BEDSIDE REGARDING IMM LETTER. IMM LETTER GIVEN WITH EXPLANATION BASED ON ANTICIPATED DISCHARGE DATE. ORIGINAL SIGNED AND PLACED IN CHART; COPY OF ORIGINAL DOCUMENT GIVEN TO PATIENT AT BEDSIDE AND PLACED IN CARE TRANSITION FOLDER. CM CONTACT INFORMATION GIVEN TO PATIENT FOR ANY NEEDS OR CONCERNS. PATIENT WITH NO FURTHER QUESTIONS.
--- NOTE | 2018-07-16 19:12 | NUR ---
REPORT GIVEN TO ONCOMING NURSE, WALKING ROUNDS DONE. PATIENT IS SITTING UP IN BED. NO ACUTE DISTRESS NOTED. DAUGHTER AT BEDSIDE. CALL LIGHT WITHIN REACH. BED IN THE LOWEST POSITION.
--- NOTE | 2018-07-16 21:51 | NUR ---
picc line dressing changed.
[2018-07-17] VITALS (8 sets, daily range): BP systolic 136–160; BP diastolic 60–72
[2018-07-17] MEDS: CLINDAMYCIN 300MG 50 ML IV SCH ×4 (00:15→17:51)
[2018-07-17] MEDS: LEVOFLOXACIN 500MG/D5W 100ML 100 ML IV SCH (04:28)
--- NOTE | 2018-07-17 06:32 | NUR ---
Dressing to both lower extremities done.
--- NOTE | 2018-07-17 07:00 | NUR ---
RECEIVED AM REPORT FROM NURSE, PT IS AWAKE IN BED, NO S/S OF DISTRESS, DAUGHTER IS AT BEDSIDE.
[2018-07-17] MEDS: APIXABAN 5 MG TABLET PO SCH (08:09)
[2018-07-17] MEDS: METOPROLOL TARTRATE 25 MG TAB PO SCH ×2 (08:09→20:30)
[2018-07-17] MEDS: PANTOPRAZOLE SOD 40 MG TABEC PO SCH (08:10)
[2018-07-17] MEDS: FUROSEMIDE INJ 10 MG/ML 4 ML VIAL IV SCH ×2 (08:15→17:51)
[2018-07-17] MEDS: NYSTATIN 100,000 UNITS/GM CRM 30GM TUBE TOP SCH ×2 (14:13→20:30)
--- NOTE | 2018-07-17 16:29 | NUR ---
Nutrition Screen Note RD Recommendation for Physician: - Rec adding ADA 1800 to cardiac diet - Diet education provided 07/13 Plan of Care: RD following, monitoring for tolerance and adequacy Nutrition reason for involvement: Follow up Primary Diagnose(s): CHF exacerbation PMH: CHF, HTN, DM, CAD,colon cancer with resection, cholecystectomy, morbid obesity Ht: 67 in Wt: 316.13 lb; 298.03lb (fluid loss on diuretics) BMI: 49.5 kg/m2 IBW: [address] Assessment: (07/17) Visited pt in the room. Pt reported good appetite with 75-100% recorded meal intake since admission. No GI complains reported. No nutrition warranted at this time. RD signed off. Please consult as needed. (07/13) 67 YOF admitted for CHF exacerbation seen today per MST score and CHF dx. Pt discussed during am rounds, JUANCARLOS planned for today. 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 Pt reports UBW of 203-207#, wt gain due to fluid. Pt denies any GI distress, reports hx of swallowing difficulty and received therapy from [facility] [employer] [employer]ORER previously. Chart reviewed. Labs and meds reviewed. Education materials provided to pt's daughter at bedside upon return visit, pt out of room for procedure- no questions at time of visit. Will monitor and continue to follow. Current Diet: Cardiac diet Malnutrition Evaluation (07/13/18) The patient does not meet criteria for a specified degree of malnutrition at this time. Will re-evaluate at follow-up as appropriate. Diet Education Needs Assessment: Diet education indicated, diet education provided 07/13/18. Learner(s): pt's daughter Barriers: none Cultural/Language Modifications: none Readiness: ready Method: handouts Topics: low sodium nutrition therapy, salt free seasoning Understanding/Compliance: fair per pt recall at time of assessment Nutrition Care Level: Sign off Signed: Anna Gomez, , RD, LD
--- NOTE | 2018-07-17 18:34 | NUR ---
PT IS UP IN BED, NO S/S OF DISTRESS
--- NOTE | 2018-07-17 22:55 | NUR ---
Wound dressing to bilateral lower legs done
[2018-07-17] MEDS: ACETAMINOPHEN 325 MG TAB PO PRN (23:28)
[2018-07-18] VITALS (7 sets, daily range): BP systolic 129–161; BP diastolic 58–66
[2018-07-18] MEDS: CLINDAMYCIN 300MG 50 ML IV SCH ×5 (00:37→22:28)
[2018-07-18] MEDS: LEVOFLOXACIN 500MG/D5W 100ML 100 ML IV SCH (04:21)
--- NOTE | 2018-07-18 07:00 | NUR ---
RECEIVED AM REPORT FROM NURSE. PT IS AWAKE LYING IN BED, NO S/S OF DISTRESS NOTED, NC IS APPLIED.
[2018-07-18] MEDS: APIXABAN 5 MG TABLET PO SCH (08:41)
[2018-07-18] MEDS: METOPROLOL TARTRATE 25 MG TAB PO SCH ×2 (08:41→21:21)
[2018-07-18] MEDS: PANTOPRAZOLE SOD 40 MG TABEC PO SCH (08:41)
[2018-07-18] MEDS: FUROSEMIDE INJ 10 MG/ML 4 ML VIAL IV SCH ×2 (08:42→17:06)
[2018-07-18] MEDS: NYSTATIN 100,000 UNITS/GM CRM 30GM TUBE TOP SCH ×2 (08:48→21:21)
[2018-07-18] MEDS: ACETAMINOPHEN 325 MG TAB PO PRN ×2 (08:51→21:34)
--- NOTE | 2018-07-18 13:40 | NUR ---
NEW LABS WERE ORDERED FOR BMP, BNP. AYE LABS FROM IJ LINE. PT TOLERATED WELL. TRIPE WASHER DELIVERED TO LABORATORY
[2018-07-18] MEDS ORDERED: SODIUM CHLORIDE 0.9% 250ML 250 ML ONE (14:06)
[2018-07-18] MEDS: CEFEPIME 1GM/NS 0.9% 50 ML 50 ML IV SCH ×2 (14:10→21:22)
[2018-07-18 14:52] LABS: ANION GAP 8.6 mmol/L (8-16); BLOOD UREA NITROGEN 11 mg/dL (7-26); BUN/CREATININE RATIO 12 (6-25); CALCIUM 8.9 mg/dL (8.4-10.2); CHLORIDE 95 mmol/L (98-107); EST GLOMERULAR FILTRATION RATE > 60 ML/MIN (60-); GLUCOSE 114 mg/dL (74-118); POTASSIUM 3.6 mmol/L (3.5-5.1); SODIUM 143 mmol/L (136-145)
--- NOTE | 2018-07-18 14:55 | Progress Note ---
DATE: Cardiology Progress Note SUBJECTIVE: The patient denies chest pain or shortness of breath. OBJECTIVE: VITAL SIGNS: Temperature 97.2 degrees, pulse 57, respiratory rate 18, blood pressure 141/65, oxygen saturation 97% on 2 L nasal cannula. GENERAL: Obese woman, no acute distress, awake, and alert. LUNGS: Crackles in bilateral bases, otherwise clear to auscultation. ABDOMEN: Soft, nontender, obese. EXTREMITIES: 1+ pitting edema and wrappings present bilateral lower extremities. NEURO: Nonfocal exam. CARDIAC MEDICATIONS: 1. Furosemide 40 mg IV b.i.d. 2. Metoprolol tartrate 25 mg p.o. q.12 hours. 3. Apixaban 5 mg p.o. daily. LABORATORY DATA: None today. TELEMETRY: Normal sinus rhythm. IMPRESSION: 1. Acute on chronic diastolic heart failure. 2. Bilateral lower extremity edema. 3. History of pulmonary embolism and deep vein thrombosis, on Eliquis. 4. Hypertension. 5. Lower extremity cellulitis. RECOMMENDATION: Continue current cardiac medications. Continue IV diuresis. Daily weights as in's and out's are inaccurate. Check BMP and BNP today. Blood pressure is slightly elevated. If this persists and renal function is stable, we will attempt to start MARCO inhibitor. Thank you for this consult. We will continue to follow. Angela Rayo MD ABS/MODL /[id number]
[2018-07-18 14:59] LABS: CARBON DIOXIDE 43 mmol/L (22-29)
--- NOTE | 2018-07-18 18:39 | NUR ---
PT IS SITTING UP IN BEDSIDE CHAIR, NO S/S OF DISTRESS. O2 2L VIA NC, IJ LINES CLAMPED AND CAPPED. DAUGHTER IS AT THE BEDSIDE.
--- NOTE | 2018-07-18 19:20 | NUR ---
Received bedside shift report from dayshift RN. Patient is sitting on the chair at bedside with right LE on the chair for elevation. Patient is not in distress.
[2018-07-19] VITALS (8 sets, daily range): BP systolic 128–142; BP diastolic 61–67
[2018-07-19] MEDS: LEVOFLOXACIN 500MG/D5W 100ML 100 ML IV SCH (03:38)
[2018-07-19] MEDS: CLINDAMYCIN 300MG 50 ML IV SCH ×3 (05:00→16:54)
[2018-07-19] MEDS: CEFEPIME 1GM/NS 0.9% 50 ML 50 ML IV SCH ×3 (06:34→21:38)
--- NOTE | 2018-07-19 06:38 | NUR ---
sterile processing technician called reported 4 beat v-tach. The patient is not in distress. Continue to monitor the patient.
--- NOTE | 2018-07-19 06:49 | NUR ---
Called and spoke with Dr. Rayo regarding the patient's 4 beat v-tach and received order for lab on BNP and magnesium.
--- NOTE | 2018-07-19 07:00 | NUR ---
RECEIVED AM REPORT FROM NURSE. PT IS AWAKE IN BED, NO S/S OF DISTRESS. DAUGHTER IS AT THE BEDSIDE
--- NOTE | 2018-07-19 07:45 | NUR ---
BNP/MAG LABS WERE DRAWN FROM IJ LINE. PT TOLERATED WELL. LINES CLAMPED AD CAPPED
[2018-07-19] MEDS: PANTOPRAZOLE SOD 40 MG TABEC PO SCH (08:43)
[2018-07-19] MEDS: APIXABAN 5 MG TABLET PO SCH (08:43)
[2018-07-19] MEDS: METOPROLOL TARTRATE 25 MG TAB PO SCH ×2 (08:44→21:38)
[2018-07-19] MEDS: FUROSEMIDE INJ 10 MG/ML 4 ML VIAL IV SCH ×2 (08:45→16:54)
[2018-07-19] MEDS: NYSTATIN 100,000 UNITS/GM CRM 30GM TUBE TOP SCH ×2 (08:50→21:37)
[2018-07-19] MEDS: ACETAMINOPHEN 325 MG TAB PO PRN (14:45)
[2018-07-19 15:18] LABS: ANION GAP 9.7 mmol/L (8-16); CALCIUM 8.8 mg/dL (8.4-10.2); CREATININE, SERUM 0.97 mg/dL (0.57-1.11); POTASSIUM 3.7 mmol/L (3.5-5.1)
--- NOTE | 2018-07-19 15:34 | Progress Note ---
DATE: 07/19/2018 Cardiology Progress Note SUBJECTIVE: The patient denies chest pain or shortness of breath. OBJECTIVE: VITAL SIGNS: Temperature 97.3 degrees, pulse 72, respiratory rate 20, blood pressure 141/67, and oxygen saturation 98% on 2 L nasal cannula. GENERAL: Awake, alert, obese woman, in no acute distress. LUNGS: Clear to auscultation bilaterally. No wheezes or crackles. CARDIOVASCULAR: Normal rate, regular rhythm. No murmur. Normal S1, S2. ABDOMEN: Soft, nontender, obese. EXTREMITIES: 1+ pitting edema with wrappings present on bilateral lower extremities. NEUROLOGIC: Nonfocal exam. CARDIAC MEDICATIONS: 1. Furosemide 40 mg IV b.i.d. 2. Metoprolol tartrate 25 mg p.o. q.12 hours. 3. Apixaban 5 mg p.o. daily. LABORATORY DATA: BNP 1029, magnesium 1.8. TELEMETRY: Normal sinus rhythm with a brief episode of nonsustained ventricular tachycardia. IMPRESSION: 1. Vtfld-vp-hqllnfz diastolic heart failure. 2. Bilateral lower extremity edema. 3. History of pulmonary embolism and DVT, on Eliquis. 4. Hypertension. 5. Lower extremity cellulitis. RECOMMENDATIONS: Continue current cardiac medications. The patient's volume status is gradually improving. Monitor and replete electrolytes. Continue current cardiac medications, otherwise basic metabolic panel is pending for today. Blood pressure is reasonable today. We will continue to monitor. If renal function stable and the patient remains hypertensive, we will add MARCO inhibitor. Thank you for this consult. We will continue to follow. Angela Rayo MD ABS/MODL /[id number]
--- NOTE | 2018-07-19 15:53 | NUR ---
LAB REPORTED CO2 VALUE OF 41, NOTIFIED DR. JACOBS AT 1553.
--- NOTE | 2018-07-19 17:29 | NUR ---
PERFORMED DRESSING CHANGE TO BOTH LOWER LEGS. APPLIED XEROFORM DRESSING AND WRAPPED WITH GAUZE. RIGHT LEG APPEARED RED IN COLOR, WAS WARM TO TOUCH, AND PT COMPLAINED OF PAIN. NOTIFIED DR. JACOBS OF FINDINGS TO RECOMMEND DOPPLER.
--- NOTE | 2018-07-19 18:55 | NUR ---
Received bedside shift report from dayshift RN. Patient is sitting on the chair at bedside with feet on wedge for elevation. Patient is not in distress. Patient acknowledge to have Doppler on RLE tomorrow.
[2018-07-20] VITALS (8 sets, daily range): BP systolic 131–151; BP diastolic 59–69
[2018-07-20] MEDS: CLINDAMYCIN 300MG 50 ML IV SCH ×5 (00:09→23:45)
[2018-07-20] MEDS: LEVOFLOXACIN 500MG/D5W 100ML 100 ML IV SCH (04:15)
[2018-07-20] MEDS: CEFEPIME 1GM/NS 0.9% 50 ML 50 ML IV SCH ×3 (05:13→22:19)
[2018-07-20] MEDS ORDERED: SODIUM CHLORIDE 0.9% 250ML 250 ML ONE (05:14)
--- NOTE | 2018-07-20 07:00 | NUR ---
PATIENT IS AWAKE, ALERT, AND IN STABLE CONDITION WITH NO S/S OF RESPIRATORY DISTRESS. NO PAIN VOICED. 02 AND TELEMETRY APPLIED. DAUGHTER PRESENT IN THE ROOM. CALL LIGHT IS WITHIN REACH, PATIENT INSTRUCTED TO CALL FOR ASSISTANCE NEEDED.
[2018-07-20] MEDS: METOPROLOL TARTRATE 25 MG TAB PO SCH ×2 (08:38→19:52)
[2018-07-20] MEDS: PANTOPRAZOLE SOD 40 MG TABEC PO SCH (08:38)
[2018-07-20] MEDS: FUROSEMIDE INJ 10 MG/ML 4 ML VIAL IV SCH ×2 (08:38→16:02)
[2018-07-20] MEDS: APIXABAN 5 MG TABLET PO SCH (08:38)
--- NOTE | 2018-07-20 09:15 | Diagnostic Imaging Report ---
EXAM: US EXTREMITY CASTELLANOS NON-VAS INDICATION: ^DO ULTRASOUND RIGHT LOWER LEG BELOW KNEE TO RULE OUT ABSCES COMPARISON: None TECHNIQUE: Transverse and sagittal images were performed of the right calf posteriorly using grayscale and color Doppler. FINDINGS: Subcutaneous edema. No abscess. Thrombosed and distended varicose vein in the right posterior calf. IMPRESSION: 1. Thrombosed varicose vein in the right posterior calf. 2. Subcutaneous edema. No abscess. Signed by: Dr. Santana Hill M.D. on 07/20/2018 9:11 AM
[2018-07-20] MEDS: NYSTATIN 100,000 UNITS/GM CRM 30GM TUBE TOP SCH ×2 (10:04→19:53)
--- NOTE | 2018-07-20 10:04 | NUR ---
PATIENT SHOWERED. WOUND CARE TO LOWER EXTREMITIES COMPLETED. PATIENT IS RESTING BACK IN THE BED NOW AFTER SITTING UP IN THE RECLINER FOR SEVERAL MINUTES. DAUGHTER PRESENT IN ROOM.
--- NOTE | 2018-07-20 10:16 | NUR ---
EDUCATED ABOUT IMM, SIGNED, FILED IN CHART, WITH COPY LEFT WITH FAMILY AT BEDSIDE.
--- NOTE | 2018-07-20 14:23 | Progress Note ---
DATE: 07/20/2018 Cardiology Progress Note SUBJECTIVE: The patient denies chest pain or shortness of breath. The patient reports intermittent palpitations. OBJECTIVE: VITAL SIGNS: Temperature 97 degrees, pulse 64, respiratory rate 17, blood pressure 151/67, oxygen saturation 97% on room air. GENERAL: Obese woman, in no acute distress, awake and alert. LUNGS: Clear to auscultation bilaterally. No wheezes or crackles. CARDIOVASCULAR: Normal rate, regular rhythm. No murmur. Normal S1, S2. ABDOMEN: Soft, nontender. Obese. EXTREMITIES: 1+ pitting edema with wrappings present on bilateral lower extremities. NEURO: Nonfocal exam. CARDIAC MEDICATIONS: Metoprolol tartrate 25 mg p.o. q.12 hours, apixaban 5 mg p.o. daily, furosemide 40 mg IV b.i.d. LABORATORY DATA: Sodium 144, potassium 3.7, chloride 97, CO2 of 41, BUN 13, creatinine 0.97. TELEMETRY: Normal sinus rhythm. IMPRESSION: 1. Acute on chronic diastolic heart failure. 2. Bilateral lower extremity edema. 3. History of pulmonary embolism and deep venous thrombosis, on Eliquis. 4. Hypertension. 5. Lower extremity cellulitis. RECOMMENDATION: Continue current cardiac medications. The patient's volume status is gradually improving. Monitor and replete electrolytes. Creatinine stable. Blood pressure is borderline. We will start lisinopril. Thank you for this consult. We will continue to follow. Angela Rayo MD ABS/MODL /[id number]
[2018-07-20] MEDS: ACETAMINOPHEN 325 MG TAB PO PRN (16:07)
--- NOTE | 2018-07-20 19:00 | NUR ---
Received bedside shift report from dayshift RN. Patient is sitting on the chair at bedside with right LE on the chair for elevation. Call light is within reach. Patient is not in distress.
--- NOTE | 2018-07-20 19:29 | NUR ---
PATIENT IS SITTING IN THE RECLINER AND IS IN STABLE CONDITION WITH NO S/S OF RESPIRATORY DISTRESS. NO PAIN VOICED. TELEMETRY APPLIED. CALL LIGHT IS WITHIN REACH, PATIENT INSTRUCTED TO CALL FOR ASSISTANCE NEEDED. BEDSIDE SHIFT REPORT GIVEN TO ONCOMING NURSE.
[2018-07-20] MEDS: LISINOPRIL 10 MG TAB PO SCH (19:53)
[2018-07-21] VITALS: BP 140/66
[2018-07-21] MEDS: LEVOFLOXACIN 500MG/D5W 100ML 100 ML IV SCH (03:39)
[2018-07-21 04:00] VITALS: BP 126/63
[2018-07-21] MEDS: CLINDAMYCIN 300MG 50 ML IV SCH ×4 (05:07→23:04)
[2018-07-21] MEDS: CEFEPIME 1GM/NS 0.9% 50 ML 50 ML IV SCH ×3 (05:08→21:17)
[2018-07-21 06:33] LABS: BASOPHILS % 0.7 % (0.0-1.0); EOSINOPHILS # (AUTO) 0.3 (0.0-0.4); EOSINOPHILS % 6.5 % (0.0-6.0); HEMATOCRIT 30.3 % (34.2-44.1); HEMOGLOBIN 8.7 g/dL (12.0-16.0); LYMPHOCYTES # (AUTO) 0.6 (1.0-3.2); LYMPHOCYTES % 13.2 % (18.0-39.1); MEAN CORPUSCULAR HEMOGLOBIN 23.2 pg (28-32); MEAN CORPUSCULAR HGB CONC 28.7 g/dL (31-35); MEAN CORPUSCULAR VOLUME 80.8 fL (81-99); MONOCYTES # (AUTO) 0.8 (0.2-0.8); MONOCYTES % 17.3 % (4.4-11.3); NEUTROPHILS # (AUTO) 2.8 (2.1-6.9); NEUTROPHILS % 62.1 % (38.7-80.0); PLATELET COUNT 143 x10e3/uL (140-360); RED BLOOD COUNT 3.75 x10e6/uL (3.6-5.1); RED CELL DISTRIBUTION WIDTH 19.2 % (11.7-14.4)
[2018-07-21 06:53] LABS: ALANINE AMINOTRANSFERASE 10 IU/L (0-55); ALBUMIN 2.6 g/dL (3.5-5.0); ALBUMIN/GLOBULIN RATIO 0.8 (0.8-2.0); ALKALINE PHOSPHATASE 63 IU/L (40-150); ANION GAP 7.5 mmol/L (8-16); BLOOD UREA NITROGEN 14 mg/dL (7-26); BUN/CREATININE RATIO 17 (6-25); CALCIUM 8.8 mg/dL (8.4-10.2); CHLORIDE 94 mmol/L (98-107); CREATININE, SERUM 0.84 mg/dL (0.57-1.11); EST GLOMERULAR FILTRATION RATE > 60 ML/MIN (60-); GLUCOSE 108 mg/dL (74-118); POTASSIUM 3.5 mmol/L (3.5-5.1); SODIUM 140 mmol/L (136-145)
[2018-07-21 06:55] LABS: CARBON DIOXIDE 42 mmol/L (22-29)
--- NOTE | 2018-07-21 07:01 | NUR ---
SPOKE WITH DR. JACOBS REGARDING CRITICAL CO2 LEVEL OF 42- INFORMED DR. JACOBS PATIENT WAS CURRENTLY ON BIPAP SHE SLEPT. NO NEW ORDER GIVEN.
--- NOTE | 2018-07-21 07:05 | NUR ---
PATIENT IS AWAKE AND IN STABLE CONDITION WITH NO S/S OF RESPIRATORY DISTRESS. NO PAIN VOICED. BIPAP AND TELEMETRY APPLIED. DAUGHTER PRESENT IN THE ROOM. CALL LIGHT IS WITHIN REACH, PATIENT INSTRUCTED TO CALL FOR ASSISTANCE NEEDED.
[2018-07-21 07:51] VITALS: BP 143/66
[2018-07-21] MEDS: APIXABAN 5 MG TABLET PO SCH (08:37)
[2018-07-21] MEDS: FUROSEMIDE INJ 10 MG/ML 4 ML VIAL IV SCH ×2 (08:37→17:08)
[2018-07-21] MEDS: METOPROLOL TARTRATE 25 MG TAB PO SCH ×2 (08:38→20:31)
[2018-07-21] MEDS: PANTOPRAZOLE SOD 40 MG TABEC PO SCH (08:38)
[2018-07-21] MEDS: NYSTATIN 100,000 UNITS/GM CRM 30GM TUBE TOP SCH (10:04)
--- NOTE | 2018-07-21 11:04 | NUR ---
DRESSING CHANGE COMPLETED TO PATIENT'S BILATERAL LOWER EXTREMITIES. PATIENT IS SITTING UP IN THE RECLINER. O2 APPLIED. CALL LIGHT IS WITHIN REACH.
[2018-07-21 11:43] VITALS: BP 151/65
--- NOTE | 2018-07-21 11:47 | NUR ---
PT CONTINUES WITH CELLULITIS RIGHT LOWER EXTREMITY ULTRASOUND SHOWS THROMBOSED VERICOSE VEING OF RIGHT LOWER EXTREMITY PLAN 2 MORE DAYS OF IV ABX THEN DC HOME TENTATIVE DC DATE 07/23
[2018-07-21] MEDS ORDERED: ACETAZOLAMIDE SODIUM 500 MG/VIAL IV ONE ×2 (12:00)
--- NOTE | 2018-07-21 12:43 | Progress Note ---
DATE: Cardiology Progress Note SUBJECTIVE: The patient is overall feeling better. Volume status has improved. Lower extremity swelling has improved as well. OBJECTIVE: VITAL SIGNS: Temperature is 97.4, heart rate 68, respirations are 18, blood pressure is 143/66, and oxygen saturation is 97% on 2 L nasal cannula. GENERAL: Well appearing, well built, in no apparent distress. CARDIOVASCULAR: Regular rate and rhythm. LUNGS: Diminished breath sounds at bases. ABDOMEN: Soft, nontender, and nondistended. EXTREMITIES: Venous stasis, 1+ edema. CARDIOVASCULAR MEDICATIONS: Reviewed. LABORATORY DATA: Reviewed. Hemoglobin 8.7. Potassium 7.5, carbon dioxide is 42, chloride is 94, and creatinine is 0.8. TELEMETRY: Monitoring revealed normal sinus rhythm. IMPRESSION: 1. Acute on chronic diastolic heart failure. 2. Bilateral lower extremity edema. 3. History of pulmonary embolism. 4. Deep venous thrombosis. 5. Hypertension. 6. Lower extremity cellulitis. 7. Metabolic alkalosis. RECOMMENDATIONS: Continue current cardiovascular medications. Volume status continues to gradually improve. Her creatinine is stable with good urine output. Blood pressure is mildly elevated and started on lisinopril. Can increase this as tolerated. We will give one dose of Diamox for her metabolic alkalosis. DO JACQUELINE Denny/BRANTL /[id number]
[2018-07-21 15:42] VITALS: BP 136/62
--- NOTE | 2018-07-21 19:00 | NUR ---
patient received awake, alert, sitting up in recliner. dressings to bilateral legs c,d,i. no c/o pain noted at this time. respirations even and unlabored. 02/2l/nc in use. pm assessment complete. call yoder placed within reach. patient instructed to call for assistance when needed.
--- NOTE | 2018-07-21 19:07 | NUR ---
PATIENT IS SITTING IN THE RECLINER- AWAKE, ALERT, AND IN STABLE CONDITION WITH NO S/S OF RESPIRATORY DISTRESS. NO PAIN VOICED. 02 AND TELEMETRY APPLIED. PATIENT HAS HER LOWER EXTREMITIES ELEVATED IN THE RECLINER. CALL LIGHT IS WITHIN REACH, PATIENT INSTRUCTED TO CALL FOR ASSISTANCE NEEDED. BEDSIDE REPORT GIVEN TO ONCOMING NURSE.
[2018-07-21 20:00] VITALS: BP 134/64
[2018-07-21] MEDS: LISINOPRIL 10 MG TAB PO SCH (20:31)
--- NOTE | 2018-07-21 20:35 | Myoview Stress Test ---
DATE OF STUDY: 07/15/2018 18:31:00 Stress Test - Treadmill ONLY Please see accompanying treadmill report for Lexiscan infusion. Resting stress Myoview imaging was obtained. FINDINGS: Dilated left ventricle, reversible defect is noted in the anterior and apical wills of the left ventricle. Mildly decreased LV systolic function. CONCLUSIONS: 1. Abnormal SPECT study with mild apical and inferior ischemia. 2. Left ventricle ejection fraction of 50%. MD MONSERRAT Tabares/MODL /[id number]
--- NOTE | 2018-07-21 22:30 | NUR ---
patient ambulating in hallway with daughter without difficulty.
[2018-07-21] MEDS: ACETAMINOPHEN 325 MG TAB PO PRN (23:04)
--- NOTE | 2018-07-21 23:04 | NUR ---
patient medicated with tylenol 650mg po for c/o headache 07/03 at this time.
[2018-07-22] VITALS (8 sets, daily range): BP systolic 118–152; BP diastolic 57–69
[2018-07-22] MEDS: LEVOFLOXACIN 500MG/D5W 100ML 100 ML IV SCH (03:50)
[2018-07-22] MEDS: CLINDAMYCIN 300MG 50 ML IV SCH ×3 (05:22→17:01)
[2018-07-22] MEDS: CEFEPIME 1GM/NS 0.9% 50 ML 50 ML IV SCH ×3 (06:00→21:42)
--- NOTE | 2018-07-22 07:30 | NUR ---
Pt in bed with eyes open aox4 and able to verbalize needs. Denies any pain at this time. Pt has Right IJ in place and dressing is dry and intact. Denies SOB and continues on O2 2L/NC.
--- NOTE | 2018-07-22 08:13 | NUR ---
Pt received in bed at shift change. Pt aox4 and cailin to verbalize needs. Denies any pain at this time. Denies SOB. Pt is now sitting in chair for breakfast.
[2018-07-22] MEDS: APIXABAN 5 MG TABLET PO SCH (08:32)
[2018-07-22] MEDS: FUROSEMIDE INJ 10 MG/ML 4 ML VIAL IV SCH ×2 (08:32→17:01)
[2018-07-22] MEDS: METOPROLOL TARTRATE 25 MG TAB PO SCH ×2 (08:32→21:42)
[2018-07-22] MEDS: PANTOPRAZOLE SOD 40 MG TABEC PO SCH (08:33)
--- NOTE | 2018-07-22 13:29 | Progress Note ---
DATE: Cardiology Progress Note SUBJECTIVE: The patient is feeling much better. Reports improvement with shortness of breath and lower extremity swelling. OBJECTIVE: VITAL SIGNS: Temperature 96.6, heart rate 74, respirations are 18, blood pressure is 135/64, and oxygen saturation 98% on 2 L nasal cannula. GENERAL: Well appearing, in no apparent distress. CARDIOVASCULAR: Regular rate and rhythm. LUNGS: Diminished breath sounds at bases. ABDOMEN: Soft, nontender, and nondistended. EXTREMITIES: Lower extremity wounds are dressed. Edema improved. LABORATORY DATA: Reviewed. None from today. CARDIOVASCULAR MEDICATIONS: Reviewed. TELEMETRY: Monitoring revealed normal sinus rhythm. IMPRESSION: 1. Acute on chronic diastolic heart failure. 2. Bilateral lower extremity edema. 3. History of pulmonary embolism. 4. Deep venous thrombosis. 5. Hypertension. 6. Lower extremity cellulitis. 7. Metabolic alkalosis. RECOMMENDATIONS: Continue current cardiovascular medications. Unclear why she is only on daily dosing of Eliquis. Increase this to b.i.d. dosing for history of pulmonary embolism. Check basic metabolic panel today to assess metabolic alkalosis. Continue current Lasix for diuresis. Sarbjit Alfaro DO BM/MODL /[id number]
--- NOTE | 2018-07-22 19:20 | NUR ---
Completed bedside rounds with morning nurse. Pt alert and orient to name. Coming from bathroom with IV pole. C/o dull RALPH, 4/10 pain, will admin prn pain med. Denies n/v or dizziness. Call oyder within reach. Bed low and locked. Will continue to monitor.
--- NOTE | 2018-07-22 19:27 | NUR ---
Pt in bed with eyes open. Pt denies any pain at this time. 0 s/s of acute distress noted. Right IJ is inplace and patent.
[2018-07-22] MEDS: ACETAMINOPHEN 325 MG TAB PO PRN (19:45)
--- NOTE | 2018-07-22 19:45 | NUR ---
Admin prn Tylenol for dull RALPH, pain 4/10. Will continue to monitor.
[2018-07-22] MEDS: LISINOPRIL 10 MG TAB PO SCH (21:42)
[2018-07-23] VITALS (8 sets, daily range): BP systolic 119–146; BP diastolic 57–63
[2018-07-23] MEDS: LEVOFLOXACIN 500MG/D5W 100ML 100 ML IV SCH (04:11)
[2018-07-23] MEDS: CEFEPIME 1GM/NS 0.9% 50 ML 50 ML IV SCH ×3 (05:15→21:48)
[2018-07-23] MEDS: CLINDAMYCIN 300MG 50 ML IV SCH ×5 (06:00→23:54)
--- NOTE | 2018-07-23 06:30 | NUR ---
Pt lying in bed with eyes closed. Snoring. No acute distress noted.
--- NOTE | 2018-07-23 07:30 | NUR ---
Pt received in bed. aox4 and able to verbalize needs. Denies any pain at this time. Denies SOB and continues on O2 2L/NC.
[2018-07-23] MEDS: APIXABAN 5 MG TABLET PO SCH ×3 (08:04→16:36)
[2018-07-23] MEDS: FUROSEMIDE INJ 10 MG/ML 4 ML VIAL IV SCH ×2 (08:04→16:36)
[2018-07-23] MEDS: PANTOPRAZOLE SOD 40 MG TABEC PO SCH (08:05)
[2018-07-23] MEDS: METOPROLOL TARTRATE 25 MG TAB PO SCH ×2 (08:05→21:30)
--- NOTE | 2018-07-23 14:15 | Progress Note ---
DATE: Cardiology Progress Note SUBJECTIVE: The patient is feeling well. No complaints. No events. OBJECTIVE: VITAL SIGNS: Temperature 96.6, heart rate 79, respirations 18, blood pressure is 130/60, oxygen saturation is 95% on 2 L nasal cannula. GENERAL: Well appearing, well built, no apparent distress. CARDIOVASCULAR: Regular rate and rhythm. LUNGS: Diminished breath sounds at bases. ABDOMEN: Soft, nontender, nondistended. EXTREMITIES: Edema improved. Lower extremity wounds are wrapped and dressed. CARDIOVASCULAR MEDICATIONS: Reviewed. TELEMETRY: Monitoring revealed normal sinus rhythm with rare premature ventricular complexes. IMPRESSION: 1. Acute on chronic diastolic heart failure. 2. Bilateral lower extremity swelling. 3. History of pulmonary embolism. 4. Deep venous thrombosis. 5. Hypertension. 6. Lower extremity cellulitis. 7. Metabolic alkalosis. RECOMMENDATIONS: Continue current cardiovascular medications including Lasix intravenously for diuresis. Increase Eliquis to b.i.d. dosing. Please check a basic metabolic panel to ensure improvement of her metabolic alkalosis. We will continue to follow along. Sarbjit Alfaro DO BM/MODL /[id number]
--- NOTE | 2018-07-23 17:26 | NUR ---
Pt in bed axo4 and able to verbalize needs. Pt denies any SOB on O2 2L/NC. Right IJ in place an dressing is dry and intact.
--- NOTE | 2018-07-23 19:00 | NUR ---
Rounds completed with morning nurse. Pt alert and orient to name. Coming from bathroom with IV pole. Denies pain at this time. Right IJ, in place, drsg c/d/i. Call yoder within reach. Bed low and locked. Will continue to monitor.
[2018-07-23] MEDS: LISINOPRIL 10 MG TAB PO SCH (21:30)
[2018-07-24] VITALS (8 sets, daily range): BP systolic 99–146; BP diastolic 51–65
[2018-07-24] MEDS: CLINDAMYCIN 300MG 50 ML IV SCH ×4 (05:26→23:23)
[2018-07-24] MEDS: CEFEPIME 1GM/NS 0.9% 50 ML 50 ML IV SCH ×3 (06:00→22:30)
--- NOTE | 2018-07-24 07:00 | NUR ---
RECEIVED PATIENT RESTING IN BED. NO ACUTE DISTRESS NOTED. DAUGHTER AT BEDSIDE. DENIES PAIN OR DISCOMFORT. CALL LIGHT WITHIN REACH. BED IN THE LOWEST POSITION.
--- NOTE | 2018-07-24 07:16 | NUR ---
Report given to morning nurse. Pt sitting in bed. Denies pain or discomfort. Family at bedside. No acute distress noted.
[2018-07-24] MEDS: FUROSEMIDE INJ 10 MG/ML 4 ML VIAL IV SCH ×2 (09:28→17:29)
[2018-07-24] MEDS: PANTOPRAZOLE SOD 40 MG TABEC PO SCH (09:28)
[2018-07-24] MEDS: METOPROLOL TARTRATE 25 MG TAB PO SCH ×2 (09:28→20:40)
[2018-07-24] MEDS: APIXABAN 5 MG TABLET PO SCH ×2 (09:28→17:29)
--- NOTE | 2018-07-24 19:21 | NUR ---
REPORT GIVEN TO ONCOMING NURSE, WALKING ROUNDS DONE. PATIENT IS RESTING IN RECLINER. NO ACUTE DISTRESS NOTED. DAUGHTER AT BEDSIDE. CALL LIGHT WITHIN REACH.
[2018-07-24] MEDS: ACETAMINOPHEN 325 MG TAB PO PRN (20:40)
[2018-07-24] MEDS: LISINOPRIL 10 MG TAB PO SCH (20:40)
--- NOTE | 2018-07-24 22:20 | NUR ---
RIGHT IJ DRESSING CHANGED USING STERILE TECHNIQUE. SUTURES INTACT, SITE IS CLEAN, PATENT, DRY AND INTACT.
[2018-07-25] VITALS (9 sets, daily range): BP systolic 108–151; BP diastolic 52–74
[2018-07-25] MEDS: CLINDAMYCIN 300MG 50 ML IV SCH ×4 (05:44→23:01)
[2018-07-25] MEDS: CEFEPIME 1GM/NS 0.9% 50 ML 50 ML IV SCH ×3 (06:20→21:03)
--- NOTE | 2018-07-25 06:50 | NUR ---
RECEIVED PATIENT RESTING IN BED. NO ACUTE DISTRESS NOTED. CALL LIGHT WITHIN REACH. BED IN THE LOWEST POSITION.
[2018-07-25] MEDS: FUROSEMIDE INJ 10 MG/ML 4 ML VIAL IV SCH ×2 (08:33→17:18)
[2018-07-25] MEDS: APIXABAN 5 MG TABLET PO SCH ×2 (08:33→17:18)
[2018-07-25] MEDS: METOPROLOL TARTRATE 25 MG TAB PO SCH ×2 (08:33→20:26)
[2018-07-25] MEDS: PANTOPRAZOLE SOD 40 MG TABEC PO SCH (08:33)
--- NOTE | 2018-07-25 10:14 | Progress Note ---
DATE: SUBJECTIVE: This is a 67-year-old female, who comes in with hypoxia, acute respiratory failure. The patient with congestive heart failure and also history of cellulitis. The patient is currently doing good. No complaints. No chest pain or shortness of breath. OBJECTIVE: VITAL SIGNS: Temperature is 97.2, pulse of 67, respirations of 17, blood pressure is 135/63, and pulse oximetry of 95%. HEENT: Normocephalic, atraumatic. The patient is morbidly obese. CVS: S1, S2 distant. Regular rate and rhythm. ABDOMEN: Nontender, nondistended. EXTREMITIES: No clubbing. No cyanosis. Positive for edema. Currently patient is on cefepime, clindamycin, lisinopril, metoprolol, furosemide IV twice a day, and pantoprazole. LABORATORY VALUES: The patient's white count is 12.46, hemoglobin last was 8.7, hematocrit of 80.8, and platelet count 143. Chemistries; CO2 is 42, sodium 140, potassium is 3.5. BNP initially was 1029.5. ASSESSMENT: 1. Acute on chronic diastolic dysfunction. 2. Obesity hypoventilation. 3. Lower extremity edema with cellulitis. 4. History of deep vein thrombosis. 5. Hypertension. PLAN: To continue on the cardiovascular medications at this time. The patient is on Eliquis. We will continue monitoring the patient. Further recommendation per clinical course. Possible discharge in 1 to 2 days. For further information, look in the chart. MD BELLE Zavaleta/JOHN /[id number]
--- NOTE | 2018-07-25 18:31 | Progress Note ---
DATE: 07/25/2018 Cardiology Progress Note SUBJECTIVE: No major events overnight. OBJECTIVE: VITAL SIGNS: Temperature afebrile, pulse 79, respiratory rate 19, blood pressure 141/65, and saturating 99% on nasal cannula. GENERAL: Well developed, well nourished, in no acute distress. CARDIOVASCULAR: Regular rate and rhythm. No murmurs, rubs, or gallops. LUNGS: Diminished breath sounds at the bases, otherwise clear to auscultation. ABDOMEN: Soft, nontender, and nondistended. NEURO AND PSYCH: Alert and oriented to person, place, and time. Normal affect. CARDIOVASCULAR MEDICATIONS: Reviewed. LABORATORY DATA: Reviewed. TELEMETRY DATA: Reviewed, shows normal sinus rhythm. ASSESSMENT AND PLAN: 1. Acute on chronic diastolic heart failure. 2. Bilateral lower extremity edema. 3. History of pulmonary embolism. 4. Deep venous thrombosis. 5. Hypertension. 6. Lower extremity cellulitis. 7. Metabolic alkalosis. RECOMMENDATIONS: Continue full-dose Eliquis 5 mg b.i.d. Continue IV Lasix for diuresis. Monitor metabolic alkalosis closely. If it worsens with diuretics, consider a dose of Diamox to assist with improvement of metabolic alkalosis. Lower extremity venous studies are pending. Thank you for this consult. We will continue to follow. MD PARISH Beck/JOHN /[id number]
--- NOTE | 2018-07-25 18:55 | NUR ---
REPORT GIVEN TO ONCOMING NURSE, PATIENT IS RESTING IN BED. NO ACUTE DISTRESS NOTED. DAUGHTER AT BEDSIDE. CALL LIGHT WITHIN REACH. BED IN THE LOWEST POSITION.
--- NOTE | 2018-07-25 19:00 | NUR ---
patient received awake, alert, lying quietly in bed. no c/o pain noted. respirations even and unlabored. 02/2l/nc in use. pm assessment complete. ble dressings remain c,d,i. daughter remains at the bedside. patient instructed to call for assistance when needed.
[2018-07-25] MEDS: LISINOPRIL 10 MG TAB PO SCH (20:26)
[2018-07-25] MEDS ORDERED: SODIUM CHLORIDE 0.9% 250ML 250 ML ONE (23:21)
[2018-07-26] VITALS (7 sets, daily range): BP systolic 120–154; BP diastolic 56–70
[2018-07-26] MEDS: CEFEPIME 1GM/NS 0.9% 50 ML 50 ML IV SCH ×3 (05:09→21:05)
[2018-07-26] MEDS: CLINDAMYCIN 300MG 50 ML IV SCH ×3 (05:51→17:30)
--- NOTE | 2018-07-26 06:45 | NUR ---
RECEIVED PATIENT RESTING IN BED. NO ACUTE DISTRESS NOTED. DAUGHTER AT BEDSIDE. CALL LIGHT WITHIN REACH. BED IN THE LOWEST POSITION.
[2018-07-26] MEDS: PANTOPRAZOLE SOD 40 MG TABEC PO SCH (08:49)
[2018-07-26] MEDS: APIXABAN 5 MG TABLET PO SCH ×2 (08:49→17:30)
[2018-07-26] MEDS: METOPROLOL TARTRATE 25 MG TAB PO SCH ×2 (08:49→20:50)
[2018-07-26] MEDS: FUROSEMIDE INJ 10 MG/ML 4 ML VIAL IV SCH ×2 (08:49→17:30)
--- NOTE | 2018-07-26 09:27 | Progress Note ---
DATE: SUBJECTIVE: The patient is here for cellulitis, acute congestive heart failure, pneumonia, and generalized weakness. The patient is feeling better on her CPAP today for sleep apnea. No complaints. Leg pain is better, but continues. OBJECTIVE: VITAL SIGNS: Temperature is 96.1, pulse of 76, respirations is 19, blood pressure is 143/65, and pulse oximetry of 98%. HEENT: Normocephalic and atraumatic on CPAP. CVS: S1 and S2. Regular rate and rhythm. ABDOMEN: Nontender and nondistended. EXTREMITIES: Bandaged. LUNGS: Decreased air entry. MICROBIOLOGY: Patient's urine culture grew enterobacter from 07/11/2018. MEDICATIONS: Include clindamycin, cefepime, metoprolol, Eliquis, pantoprazole, and acetaminophen. LABORATORY VALUES: None done today. ASSESSMENT: 1. [id number] diastolic heart failure. 2. Bilateral lower extremity pain. 3. History of pulmonary embolism. 4. Deep vein thrombosis. 5. Hypertension. 6. Cellulitis of the lower extremity. 7. History of pulmonary embolism. PLAN: Continue on Eliquis. Continue IV antibiotics. Lasix for diuresis. The patient is also getting wound care for lower extremity cellulitis. Possible discharge tomorrow. Labs in the morning. MD BELLE Zavaleta/BRANTL /[id number]
--- NOTE | 2018-07-26 11:28 | NUR ---
PATIENT NOTIFIED NURSE THAT SHE GOT A LEFT KNEE SKIN TEAR WHILE GOING TO THE BATHROOM. COVERED SKIN TEAR WITH GAUZE.
--- NOTE | 2018-07-26 17:05 | NUR ---
Visit made by the Spiritual Care Department Pastoral Visitor, Prasanna Kay. PV provided pastoral presence, hospitality, and supportive listening. Pastoral Visitor informed pt/family of the scope of [employer] and availability. LAURA [facility] [employer] Spiritual Care Department O: [phone] Pager: [phone] ([phone] number calling from)
--- NOTE | 2018-07-26 18:19 | Progress Note ---
DATE: 07/26/2018 Cardiology Progress Note SUBJECTIVE: No major events overnight. No shortness of breath or chest pain. OBJECTIVE: VITAL SIGNS: Temperature afebrile, pulse 84, respiratory rate 20, blood pressure 153/69, and saturating 96%. GENERAL: Obese white female, in no acute distress. CARDIOVASCULAR: Regular rate and rhythm. No murmurs, rubs, or gallops. LUNGS: Diminished breath sounds at the bases, otherwise clear to auscultation. No rales. ABDOMEN: Soft, nontender, and nondistended. Obese. NEURO AND PSYCH: Alert and oriented to person, place, and time. Normal affect. EXTREMITIES: Lower extremities with significant edema overlying dressing and wounds. CARDIOVASCULAR MEDICATIONS: Reviewed. LABORATORY DATA: Reviewed. TELEMETRY DATA: Reviewed, shows normal sinus rhythm. ASSESSMENT AND PLAN: 1. Acute on chronic diastolic heart failure. 2. Bilateral lower extremity edema with overlying wounds and cellulitis. 3. History of pulmonary embolism. 4. History of deep venous thrombosis. 5. Hypertension. 6. Lower extremity cellulitis. 7. Metabolic alkalosis. RECOMMENDATIONS: Continue Eliquis 5 mg b.i.d. Continue IV Lasix for diuresis as tolerated. Wound care management per primary team. Of note, the patient had JUANCARLOS done earlier this admission for concern over severe mitral regurgitation, which showed only mild mitral regurgitation. She also had a nuclear stress test done for assessment of LV perfusion given acute heart failure exacerbation, which showed significant artifact and was difficult to reach a conclusion about LV perfusion. Thank you for this consult. We will continue to follow. MD PARISH Beck/JOHN /[id number]
--- NOTE | 2018-07-26 19:19 | NUR ---
REPORT GIVEN TO ONCOMING NURSE, WALKING ROUNDS DONE. PATIENT IS RESTING IN BED. NO ACUTE DISTRESS NOTED. DAUGHTER IS AT BEDSIDE. CALL LIGHT WITHIN REACH. BED IN THE LOWEST POSITION.
--- NOTE | 2018-07-26 20:00 | NUR ---
Received change of shift report from AM nurse. Walking rounds completed.
--- NOTE | 2018-07-26 20:30 | NUR ---
2 ports on IJ line occluded. 2 port taped together and not in use. 1 port flush with good blood return.
[2018-07-26] MEDS: LISINOPRIL 10 MG TAB PO SCH (20:51)
[2018-07-27] VITALS: BP 130/58
--- NOTE | 2018-07-27 02:06 | NUR ---
Patient resting quitly with no c/o at this time. Continue monitor.
[2018-07-27 04:00] VITALS: BP 123/59
[2018-07-27 05:32] LABS: BASOPHILS # (AUTO) 0.1 (0.0-0.1); BASOPHILS % 0.9 % (0.0-1.0); EOSINOPHILS # (AUTO) 0.4 (0.0-0.4); EOSINOPHILS % 6.1 % (0.0-6.0); HEMATOCRIT 31.7 % (34.2-44.1); LYMPHOCYTES # (AUTO) 0.7 (1.0-3.2); LYMPHOCYTES % 12.8 % (18.0-39.1); MEAN CORPUSCULAR HEMOGLOBIN 23.2 pg (28-32); MEAN CORPUSCULAR HGB CONC 28.4 g/dL (31-35); MEAN CORPUSCULAR VOLUME 81.7 fL (81-99); MONOCYTES # (AUTO) 1.1 (0.2-0.8); MONOCYTES % 18.7 % (4.4-11.3); NEUTROPHILS # (AUTO) 3.5 (2.1-6.9); NEUTROPHILS % 61.2 % (38.7-80.0); PLATELET COUNT 224 x10e3/uL (140-360); RED BLOOD COUNT 3.88 x10e6/uL (3.6-5.1); RED CELL DISTRIBUTION WIDTH 20.1 % (11.7-14.4)
[2018-07-27] MEDS: CEFEPIME 1GM/NS 0.9% 50 ML 50 ML IV SCH (05:40)
[2018-07-27] MEDS: CLINDAMYCIN 300MG 50 ML IV SCH ×2 (05:40)
--- NOTE | 2018-07-27 05:40 | NUR ---
AM labs drawn and sent to lab.
[2018-07-27 05:52] LABS: ANION GAP 8.6 mmol/L (8-16); BLOOD UREA NITROGEN 27 mg/dL (7-26); BUN/CREATININE RATIO 33 (6-25); CALCIUM 9.3 mg/dL (8.4-10.2); CARBON DIOXIDE 38 mmol/L (22-29); CHLORIDE 99 mmol/L (98-107); CREATININE, SERUM 0.82 mg/dL (0.57-1.11); EST GLOMERULAR FILTRATION RATE > 60 ML/MIN (60-); GLUCOSE 138 mg/dL (74-118); POTASSIUM 3.6 mmol/L (3.5-5.1); SODIUM 142 mmol/L (136-145)
--- NOTE | 2018-07-27 07:30 | NUR ---
PT UP IN BED NO DSITRESS NOTED DENIES PAIN,O2 [address]
[2018-07-27] MEDS ORDERED: KEFLEX500 MG PO (07:31)
[2018-07-27 07:39] VITALS: BP 143/65
[2018-07-27 09:20] VITALS: BP 143/65
[2018-07-27] MEDS: PANTOPRAZOLE SOD 40 MG TABEC PO SCH (09:21)
[2018-07-27] MEDS: METOPROLOL TARTRATE 25 MG TAB PO SCH (09:21)
[2018-07-27] MEDS: APIXABAN 5 MG TABLET PO SCH (09:21)
[2018-07-27] MEDS: FUROSEMIDE INJ 10 MG/ML 4 ML VIAL IV SCH (09:21)
--- NOTE | 2018-07-27 09:50 | NUR ---
PT DISCHARGED HOME,RT IJ DCD TIP INTact,o2 2 l nc in [lace ,TRANPORTED TO AUTO VIA W/C
--- NOTE | 2018-07-28 05:01 | Discharge Summary ---
DISCHARGE DIAGNOSES: 1. Cellulitis, right lower extremity. 2. History of deep vein thrombosis. 3. Chest pain, rule out myocardial infarction. 4. Hypertension. 5. Obstructive sleep apnea. HISTORY OF PRESENT ILLNESS AND HOSPITAL COURSE: See hospital chart for full details. This patient is a lady presenting with right lower extremity cellulitis as well as chest pain. She was ruled out by ME and seen by Cardiology. They did a stress test that had a lot of artifact, appear to be unremarkable. She started having some right lower extremity fluctuance, noted to be secondary to cellulitis, so when she was placed on IV antibiotics for that she responded significantly. She also had evidence of urinary tract infection that was successfully treated well . At the time of discharge, her UTI had resolved and her cellulitis significantly improved, and she then will be discharged home on p.o. Keflex 500 mg three times a day for another 10 days and follow up with me in 1 week. Please see hospital chart for full details. MD LUCI Brown/JOHN /[id number]
== END 2018-07-27 09:59 | disposition home or self-care (01) | DRG 871 ==
LOC: ER 14:40 → ERHOLD 18:00 → ICU 19:55 → MED/SURG3 07-14 20:54
PROVIDERS: ADMIT Internal Medicine; ATTEND Internal Medicine
PROC: 02H633Z Insertion of Infusion Device into Right Atrium, Percutaneous Approach (ICD-10-PCS; principal; 2018-07-11)
PROC: 3E043XZ Introduction of Vasopressor into Central Vein, Percutaneous Approach (ICD-10-PCS; 2018-07-11)
PROC: 5A09357 Assistance with Respiratory Ventilation, Less than 24 Consecutive Hours, Continuous Positive Airway Pressure (ICD-10-PCS; 2018-07-11)
PROC: B24BZZ4 Ultrasonography of Heart with Aorta, Transesophageal (ICD-10-PCS; 2018-07-13)
DX: A41.9 Sepsis, unspecified organism (principal); I50.33 Acute on chronic diastolic (congestive) heart failure; J96.01 Acute respiratory failure with hypoxia; J96.02 Acute respiratory failure with hypercapnia; R57.0 Cardiogenic shock; N39.0 Urinary tract infection, site not specified; L03.115 Cellulitis of right lower limb; L97.229 Non-pressure chronic ulcer of left calf with unspecified severity; L97.811 Non-pressure chronic ulcer of other part of right lower leg limited to breakdown of skin; E66.2 Morbid (severe) obesity with alveolar hypoventilation; Z68.42 Body mass index [BMI] 45.0-49.9, adult; I47.2 Ventricular tachycardia; E87.3 Alkalosis; B96.89 Other specified bacterial agents as the cause of diseases classified elsewhere; I83.891 Varicose veins of right lower extremity with other complications; E11.9 Type 2 diabetes mellitus without complications; I25.10 Atherosclerotic heart disease of native coronary artery without angina pectoris; I87.8 Other specified disorders of veins; K21.9 Gastro-esophageal reflux disease without esophagitis; D64.9 Anemia, unspecified; D69.6 Thrombocytopenia, unspecified; Z79.02 Long term (current) use of antithrombotics/antiplatelets; Z86.711 Personal history of pulmonary embolism; Z79.01 Long term (current) use of anticoagulants; Z86.718 Personal history of other venous thrombosis and embolism; Z85.038 Personal history of other malignant neoplasm of large intestine
CPT/HCPCS: 36415; 36600; 71045; 76882; 78452; 80048; 80053; 80061; 81001; 82550; 82553; 82805; 83036; 83605; 83735; 83880; 84443; 84484; 85025; 85610; 85730; 87040; 87086; 87186; 93005; 93017; 93306; 93312; 93320; 93325; 93970; 94660; 96365; 97139; 99285; A9502; J0692; J0696; J1940; J1956; J2250; J2310; J7030; J7050

== ENCOUNTER → 2018-08-25 | Day surgery (SDC) | payer BC, MEDICARE ==
[2018-08-21 14:51] LABS: BASOPHILS % 0.6 % (0.0-1.0); EOSINOPHILS # (AUTO) 0.3 (0.0-0.4); EOSINOPHILS % 3.9 % (0.0-6.0); LYMPHOCYTES % 14.3 % (18.0-39.1); MEAN CORPUSCULAR VOLUME 83.3 fL (81-99); MONOCYTES # (AUTO) 0.9 (0.2-0.8); MONOCYTES % 13.6 % (4.4-11.3); NEUTROPHILS # (AUTO) 4.6 (2.1-6.9); NEUTROPHILS % 67.3 % (38.7-80.0); PLATELET COUNT 215 x10e3/uL (140-360); RED CELL DISTRIBUTION WIDTH 19.4 % (11.7-14.4)
[2018-08-21 15:02] LABS: INR 1.13
[2018-08-21 15:12] LABS: ALBUMIN 3.8 g/dL (3.5-5.0); ALBUMIN/GLOBULIN RATIO 0.8 (0.8-2.0); ANION GAP 15.1 mmol/L (8-16); CALCIUM 10.1 mg/dL (8.4-10.2); CREATININE, SERUM 1.26 mg/dL (0.57-1.11); POTASSIUM 4.1 mmol/L (3.5-5.1)
[~2018-08-25] VITALS: Ht 170.2 cm; Wt 122.0 kg
[~2018-08-25] MED LIST changes: +FENTANYL CITRATE/PF 100MCG/2 ML INJ ONE; +HEPARIN SOD/SOD CHLORIDE 2,000 ML ONE; +IOPAMIDOL 370 MG/ML 200 ML INFUS..BTL INJ ONE; +LIDOCAINE HCL 2% LOCAL 20 ML VIAL ONE; +MIDAZOLAM HCL 2 MG/2 ML VIAL ONE; +NEXIUM20 MG PO; +POTASSIUM CHLO10 ME1 PO; +SODIUM CHLORIDE 0.9% 1000ML 1,000 ML ONE; +VERAPAMIL HCL 2.5 MG/ML 2 ML VIAL ONE
[2018-08-25 08:11] VITALS: BP 153/59
[2018-08-25 09:15] VITALS: BP 123/68
[2018-08-25 09:30] VITALS: BP 137/65
--- NOTE | 2018-08-25 09:42 | Operative Report ---
DATE OF PROCEDURE: 08/25/2018 SURGEON: Carl Spence MD CARDIAC RAILS DEVELOPER PROCEDURE INDICATIONS: Coronary artery disease, abnormal stress test. PROCEDURES PERFORMED: 1. Left heart catheterization, selective coronary angiography, left ventriculography. 2. Deployment of right wrist TR band. COMPLICATIONS: None. RECOMMENDATIONS: Medical therapy. DESCRIPTION OF PROCEDURE: Access obtained in the right radial artery using ultrasound guidance. A 5-Yi sheath was placed. Diagnostic coronary angiogram revealed 50% mid left anterior descending artery stenosis. Circumflex, left main, right coronary artery had mild disease of less than 20% luminal stenosis. No critical stenosis or occlusions were noted. No intervention deemed necessary. LV ejection fraction 65%. LV end-diastolic pressure of 10. No gradient across aortic valve on pullback. Right wrist sheath and guide were removed. TR band applied. The patient discharged home same day. Carl Spence MD KSL[place]te/MODL /[id number]
[2018-08-25 10:00] VITALS: BP 125/54
[2018-08-25 10:15] VITALS: BP 115/52
[2018-08-25 10:30] VITALS: BP_SYST 112; BP_SYST 113; BP_DIAS 46; BP_DIAS 52
--- NOTE | 2018-08-25 14:43 | NUR ---
Patient given discharge information. IV removed and patient discharged with daughter with no issues.
== END | disposition home or self-care (01) ==
LOC: CATH LAB 07:08
PROVIDERS: ATTEND Internal Medicine Interventional Cardiology
DX: I25.118 Atherosclerotic heart disease of native coronary artery with other forms of angina pectoris (principal); R94.39 Abnormal result of other cardiovascular function study; I11.0 Hypertensive heart disease with heart failure; I50.30 Unspecified diastolic (congestive) heart failure; J45.909 Unspecified asthma, uncomplicated; I89.0 Lymphedema, not elsewhere classified; Z01.812 Encounter for preprocedural laboratory examination; Z79.02 Long term (current) use of antithrombotics/antiplatelets; Z68.41 Body mass index [BMI] 40.0-44.9, adult; Z82.49 Family history of ischemic heart disease and other diseases of the circulatory system
CPT/HCPCS: 36415; 80053; 85025; 85610; 93458; C1769 ×2; C1887; J2001; J2250; J7030; Q9967; J3010

== ENCOUNTER 2020-02-28 07:40 | Inpatient (IN) | payer BC, MEDICARE ==
[~2020-02-28] VITALS: Ht 170.2 cm; Wt 122.0 kg
[~2020-02-28 07:40] MED LIST changes: -FENTANYL CITRATE/PF 100MCG/2 ML INJ ONE; -HEPARIN SOD/SOD CHLORIDE 2,000 ML ONE; -IOPAMIDOL 370 MG/ML 200 ML INFUS..BTL INJ ONE; -LIDOCAINE HCL 2% LOCAL 20 ML VIAL ONE; -MIDAZOLAM HCL 2 MG/2 ML VIAL ONE; -SODIUM CHLORIDE 0.9% 1000ML 1,000 ML ONE; -VERAPAMIL HCL 2.5 MG/ML 2 ML VIAL ONE
[2020-02-28] MEDS ORDERED: ASPIRIN 81 MG CHEW TAB PO ONE ×2 (07:45→09:00)
[2020-02-28 08:27] LABS: BASOPHILS % 0.3 % (0.0-1.0); EOSINOPHILS # (AUTO) 0.3 (0.0-0.4); HEMATOCRIT 35.2 % (34.2-44.1); HEMOGLOBIN 9.7 g/dL (12.0-16.0); LYMPHOCYTES # (AUTO) 0.8 (1.0-3.2); LYMPHOCYTES % 8.4 % (18.0-39.1); MEAN CORPUSCULAR HEMOGLOBIN 26.9 pg (28-32); MEAN CORPUSCULAR HGB CONC 27.6 g/dL (31-35); MEAN CORPUSCULAR VOLUME 97.8 fL (81-99); MONOCYTES # (AUTO) 1.3 (0.2-0.8); MONOCYTES % 14.5 % (4.4-11.3); NEUTROPHILS # (AUTO) 6.6 (2.1-6.9); NEUTROPHILS % 73.4 % (38.7-80.0); PLATELET COUNT 265 x10e3/uL (140-360); RED CELL DISTRIBUTION WIDTH 15.1 % (11.7-14.4)
[2020-02-28 08:37] LABS: CLARITY,URINE CLOUDY (CLEAR); COLOR,URINE YELLOW (YELLOW); KETONES,URINE NEGATIVE (NEGATIVE); LEUKOCYTE ESTERASE ,URINE LARGE (NEGATIVE); NITRITE,URINE NEGATIVE (NEGATIVE); PROTEIN,URINE DIPSTICK 2+ (NEGATIVE); URINE UROBILINOGEN 0.2 mg/dL (0.2 - 1)
[2020-02-28 08:53] LABS: ALBUMIN 3.1 g/dL (3.5-5.0); ALBUMIN/GLOBULIN RATIO 0.7 (0.8-2.0); ANION GAP 13.4 mmol/L (8-16); CREATININE, SERUM 1.89 mg/dL (0.57-1.11); POTASSIUM 5.4 mmol/L (3.5-5.1)
[2020-02-28 08:55] LABS: BACTERIA,URINE MANY /HPF; RBC,URINE 0-5 /HPF (0-5); WBC,URINE (MAN) >50 /HPF (0-5); YEAST,URINE MODERATE
[2020-02-28 08:56] LABS: EPITHELIAL CELLS,URINE MODERATE /LPF
[2020-02-28 08:57] LABS: CREATINE KINASE MB 0.7 ng/mL (0-5.0)
[2020-02-28] MEDS ORDERED: DEXTROSE 50% SYRINGE 50 ML IV PRN (10:00)
[2020-02-28 10:24] LABS: ABG PH 7.25 (7.35-7.45)
[2020-02-28 10:25] LABS: ABG HCO3 42 mmol/L (22-26); ABG PCO2 96 mmHg (35-45); ABG PO2 96 mmHg (80-105); ABG TCO2 44
[2020-02-28] MEDS ORDERED: CEFEPIME 1GM/NS 0.9% 50 ML 50 ML IV SCH (10:30)
[2020-02-28] MEDS: INSULIN LISPRO 100 UNIT/1 ML 3ML VIAL SQ SCH ×3 (12:11→20:55)
[2020-02-28] MEDS ORDERED: DEXTROSE 50% SYRINGE 50 ML IV STA (13:13)
[2020-02-28] MEDS ORDERED: INSULIN REGULAR, HUMAN 100 UNIT/1 ML 3ML VIAL IV ONE (13:15)
[2020-02-28 14:31] LABS: ABG PH 7.27 (7.35-7.45)
[2020-02-28 14:32] LABS: ABG HCO3 42 mmol/L (22-26); ABG PCO2 93 mmHg (35-45); ABG PO2 73 mmHg (80-105); ABG TCO2 45
[2020-02-28] MEDS ORDERED: FUROSEMIDE INJ 10 MG/ML 4 ML VIAL IV ONE (16:30)
[2020-02-28 17:27] LABS: CREATINE KINASE MB 0.8 ng/mL (0-5.0)
[2020-02-29 01:20] LABS: CREATINE KINASE MB 0.7 ng/mL (0-5.0)
[2020-02-29] MEDS: FLECAINIDE ACETATE 100 MG TAB PO SCH ×2 (04:46→16:19)
[2020-02-29] MEDS ORDERED: CEFEPIME HCL 1 GM VIAL IV SCH (05:15)
[2020-02-29 05:24] LABS: BASOPHILS % 0.4 % (0.0-1.0); EOSINOPHILS # (AUTO) 0.2 (0.0-0.4); EOSINOPHILS % 2.7 % (0.0-6.0); HEMATOCRIT 33.1 % (34.2-44.1); HEMOGLOBIN 9.3 g/dL (12.0-16.0); LYMPHOCYTES # (AUTO) 0.5 (1.0-3.2); LYMPHOCYTES % 7.3 % (18.0-39.1); MEAN CORPUSCULAR HEMOGLOBIN 27.7 pg (28-32); MEAN CORPUSCULAR HGB CONC 28.1 g/dL (31-35); MEAN CORPUSCULAR VOLUME 98.5 fL (81-99); MONOCYTES # (AUTO) 0.9 (0.2-0.8); MONOCYTES % 12.9 % (4.4-11.3); NEUTROPHILS # (AUTO) 5.6 (2.1-6.9); NEUTROPHILS % 76.3 % (38.7-80.0); PLATELET COUNT 228 x10e3/uL (140-360); RED BLOOD COUNT 3.36 x10e6/uL (3.6-5.1)
[2020-02-29 05:38] LABS: ALBUMIN 2.7 g/dL (3.5-5.0); ALBUMIN/GLOBULIN RATIO 0.7 (0.8-2.0); ANION GAP 12.4 mmol/L (8-16); CALCIUM 8.4 mg/dL (8.4-10.2); CREATININE, SERUM 1.98 mg/dL (0.57-1.11); POTASSIUM 5.4 mmol/L (3.5-5.1)
[2020-02-29] MEDS: INSULIN LISPRO 100 UNIT/1 ML 3ML VIAL SQ SCH ×4 (08:43→20:47)
[2020-02-29] MEDS: METOPROLOL TARTRATE 50 MG TAB PO SCH ×2 (08:43→16:03)
[2020-02-29] MEDS ORDERED: SODIUM CHLORIDE 0.9% 250ML 250 ML ONE (16:10)
[2020-02-29 16:27] VITALS: BP 134/69
[2020-02-29 16:28] VITALS: BP 134/69
[2020-02-29 16:30] VITALS: BP 134/69
[2020-02-29] MEDS: CEFEPIME 1GM/NS 0.9% 50 ML 50 ML IV SCH (16:55)
[2020-02-29 20:00] VITALS: BP 132/58
[2020-02-29 20:08] LABS: ABG HCO3 44 mmol/L (22-26); ABG PCO2 96 mmHg (35-45); ABG PH 7.27 (7.35-7.45); ABG PO2 104 mmHg (80-105); ABG TCO2 47
[2020-02-29] MEDS: FUROSEMIDE INJ 10 MG/ML 4 ML VIAL IV SCH (20:16)
[2020-03-01] VITALS (8 sets, daily range): BP systolic 96–150; BP diastolic 57–101
[2020-03-01 00:21] LABS: ABG HCO3 47 mmol/L (22-26); ABG PCO2 99 mmHg (35-45); ABG PH 7.28 (7.35-7.45); ABG PO2 121 mmHg (80-105); ABG TCO2 50
[2020-03-01] MEDS: ALBUTEROL/IPRATROPIUM 3 ML NEB NEB SCH ×4 (00:35→21:45)
[2020-03-01] MEDS: FLECAINIDE ACETATE 100 MG TAB PO SCH ×3 (03:52→16:15)
[2020-03-01] MEDS: CEFEPIME 1GM/NS 0.9% 50 ML 50 ML IV SCH ×2 (05:06→17:41)
[2020-03-01 06:33] LABS: BASOPHILS % 0.3 % (0.0-1.0); EOSINOPHILS # (AUTO) 0.2 (0.0-0.4); EOSINOPHILS % 2.5 % (0.0-6.0); HEMATOCRIT 33.1 % (34.2-44.1); HEMOGLOBIN 9.2 g/dL (12.0-16.0); LYMPHOCYTES # (AUTO) 0.5 (1.0-3.2); LYMPHOCYTES % 8.1 % (18.0-39.1); MEAN CORPUSCULAR HEMOGLOBIN 26.8 pg (28-32); MEAN CORPUSCULAR HGB CONC 27.8 g/dL (31-35); MEAN CORPUSCULAR VOLUME 96.5 fL (81-99); MONOCYTES # (AUTO) 0.8 (0.2-0.8); NEUTROPHILS # (AUTO) 4.8 (2.1-6.9); NEUTROPHILS % 75.8 % (38.7-80.0); PLATELET COUNT 216 x10e3/uL (140-360); RED BLOOD COUNT 3.43 x10e6/uL (3.6-5.1); RED CELL DISTRIBUTION WIDTH 14.9 % (11.7-14.4)
[2020-03-01 06:55] LABS: ALBUMIN 2.6 g/dL (3.5-5.0); ALBUMIN/GLOBULIN RATIO 0.6 (0.8-2.0); ANION GAP 13.4 mmol/L (8-16); CALCIUM 8.4 mg/dL (8.4-10.2); CREATININE, SERUM 1.6 mg/dL (0.57-1.11); MAGNESIUM 2.8 MG/DL (1.3-2.1); POTASSIUM 5.4 mmol/L (3.5-5.1)
[2020-03-01] MEDS: INSULIN LISPRO 100 UNIT/1 ML 3ML VIAL SQ SCH ×4 (07:30→19:57)
[2020-03-01] MEDS: FUROSEMIDE INJ 10 MG/ML 4 ML VIAL IV SCH ×3 (09:14→21:38)
[2020-03-01] MEDS: METOPROLOL TARTRATE 50 MG TAB PO SCH ×2 (09:14→17:00)
[2020-03-01] MEDS ORDERED: HEPARIN 25,000 UNIT 25,000 UNIT in DEXTROSE 5% 250ML 250 ML IV SCH (10:00)
[2020-03-01 11:50] LABS: ABG HCO3 43 mmol/L (22-26); ABG PCO2 95 mmHg (35-45); ABG PH 7.27 (7.35-7.45); ABG PO2 110 mmHg (80-105); ABG TCO2 46
[2020-03-01] MEDS: METHYLPREDNISOLONE SOD SUCC 40 MG/ML VIAL 1ML IV SCH ×2 (13:00→21:38)
[2020-03-01] MEDS ORDERED: HEPARIN 25,000 UNIT 1,500 UNIT in DEXTROSE 5% 250ML 250 ML IV SCH (14:30)
[2020-03-01 15:57] LABS: INR 1.04; PROTHROMBIN TIME 14.3 seconds (11.9-14.5)
[2020-03-01] MEDS: ENOXAPARIN SODIUM INJ 100 MG/ML SYR SC SCH (17:41)
[2020-03-01] MEDS: AMMONIUM LACTATE 12% LOTION 225GM BTL TOP SCH (17:41)
[2020-03-01 17:43] LABS: ABG PH 7.36 (7.35-7.45)
[2020-03-01 17:44] LABS: ABG HCO3 43 mmol/L (22-26); ABG PCO2 77 mmHg (35-45); ABG PO2 57 mmHg (80-105); ABG TCO2 45
[2020-03-01] MEDS ORDERED: DOXYCYCLINE HYCLATE TABLET 100 MG TAB PO SCH (18:00)
[2020-03-01] MEDS: DOXYCYCLINE HYCLATE TABLET 100 MG TAB PO SCH (21:38)
[2020-03-02] VITALS (12 sets, daily range): BP systolic 107–162; BP diastolic 58–81
[2020-03-02] MEDS: ALBUTEROL/IPRATROPIUM 3 ML NEB NEB SCH ×6 (03:00→23:40)
[2020-03-02] MEDS: FLECAINIDE ACETATE 100 MG TAB PO SCH ×2 (04:15→16:13)
[2020-03-02 04:54] LABS: BASOPHILS % 0.2 % (0.0-1.0); HEMATOCRIT 29.2 % (34.2-44.1); HEMOGLOBIN 8.5 g/dL (12.0-16.0); LYMPHOCYTES # (AUTO) 0.2 (1.0-3.2); LYMPHOCYTES % 4.8 % (18.0-39.1); MEAN CORPUSCULAR HEMOGLOBIN 27.3 pg (28-32); MEAN CORPUSCULAR HGB CONC 29.1 g/dL (31-35); MEAN CORPUSCULAR VOLUME 93.9 fL (81-99); MONOCYTES # (AUTO) 0.1 (0.2-0.8); MONOCYTES % 2.1 % (4.4-11.3); NEUTROPHILS # (AUTO) 3.9 (2.1-6.9); NEUTROPHILS % 92.2 % (38.7-80.0); PLATELET COUNT 196 x10e3/uL (140-360); RED BLOOD COUNT 3.11 x10e6/uL (3.6-5.1); RED CELL DISTRIBUTION WIDTH 14.6 % (11.7-14.4)
[2020-03-02 05:05] LABS: INR 1.14; PROTHROMBIN TIME 15.3 seconds (11.9-14.5)
[2020-03-02 05:27] LABS: ALBUMIN 2.4 g/dL (3.5-5.0); ALBUMIN/GLOBULIN RATIO 0.7 (0.8-2.0); ANION GAP 15.2 mmol/L (8-16); CALCIUM 8.4 mg/dL (8.4-10.2); CREATININE, SERUM 1.61 mg/dL (0.57-1.11); POTASSIUM 5.2 mmol/L (3.5-5.1)
[2020-03-02] MEDS: ENOXAPARIN SODIUM INJ 100 MG/ML SYR SC SCH ×2 (05:53→17:09)
[2020-03-02] MEDS: CEFEPIME 1GM/NS 0.9% 50 ML 50 ML IV SCH ×2 (05:53→17:09)
[2020-03-02] MEDS: FUROSEMIDE INJ 10 MG/ML 4 ML VIAL IV SCH ×3 (08:10→22:14)
[2020-03-02] MEDS: BALSAM PERU/CASTOR OIL 60 GM OINT...G. TP SCH (08:10)
[2020-03-02] MEDS: METHYLPREDNISOLONE SOD SUCC 40 MG/ML VIAL 1ML IV SCH (08:10)
[2020-03-02] MEDS: AMMONIUM LACTATE 12% LOTION 225GM BTL TOP SCH ×2 (08:10→16:13)
[2020-03-02] MEDS: INSULIN LISPRO 100 UNIT/1 ML 3ML VIAL SQ SCH ×4 (08:15→21:00)
[2020-03-02] MEDS: METOPROLOL TARTRATE 50 MG TAB PO SCH ×2 (08:30→16:13)
[2020-03-02] MEDS: DOXYCYCLINE HYCLATE TABLET 100 MG TAB PO SCH ×2 (08:30→20:22)
[2020-03-02] MEDS ORDERED: NON-FORMULARY MEDICATION ([Apixaban] 5 MG) PO SCH (09:00)
[2020-03-02] MEDS ORDERED: VANCOMYCIN 1GM/NS 250 ML 250 ML IV ONE ×2 (10:30→12:30)
[2020-03-02] MEDS ORDERED: ACETAZOLAMIDE 250 MG TAB PO ONE (14:15)
[2020-03-02 14:16] LABS: ABG HCO3 42 mmol/L (22-26); ABG PCO2 66 mmHg (35-45); ABG PH 7.41 (7.35-7.45); ABG PO2 44 mmHg (80-105); ABG TCO2 44
[2020-03-02] MEDS: PREDNISONE 10 MG TAB PO SCH (16:13)
[2020-03-02] MEDS: FLUCONAZOLE 100 MG TAB PO SCH (17:09)
[2020-03-03] VITALS (9 sets, daily range): BP systolic 111–164; BP diastolic 48–92
[2020-03-03] MEDS: ALBUTEROL/IPRATROPIUM 3 ML NEB NEB SCH ×6 (03:35→23:00)
[2020-03-03] MEDS: FLECAINIDE ACETATE 100 MG TAB PO SCH ×2 (04:13→16:52)
[2020-03-03] MEDS: ENOXAPARIN SODIUM INJ 100 MG/ML SYR SC SCH ×2 (05:33→16:52)
[2020-03-03] MEDS: CEFEPIME 1GM/NS 0.9% 50 ML 50 ML IV SCH ×2 (05:33→16:52)
[2020-03-03 05:44] LABS: BASOPHILS % 0.1 % (0.0-1.0); HEMATOCRIT 31.4 % (34.2-44.1); HEMOGLOBIN 9.1 g/dL (12.0-16.0); LYMPHOCYTES # (AUTO) 0.4 (1.0-3.2); LYMPHOCYTES % 4.8 % (18.0-39.1); MEAN CORPUSCULAR HEMOGLOBIN 27.2 pg (28-32); MEAN CORPUSCULAR VOLUME 93.7 fL (81-99); MONOCYTES # (AUTO) 0.6 (0.2-0.8); MONOCYTES % 7.5 % (4.4-11.3); NEUTROPHILS # (AUTO) 6.7 (2.1-6.9); NEUTROPHILS % 87.2 % (38.7-80.0); PLATELET COUNT 219 x10e3/uL (140-360); RED BLOOD COUNT 3.35 x10e6/uL (3.6-5.1)
[2020-03-03 06:12] LABS: ALBUMIN 2.6 g/dL (3.5-5.0); ALBUMIN/GLOBULIN RATIO 0.7 (0.8-2.0); ANION GAP 13.4 mmol/L (8-16); CALCIUM 8.6 mg/dL (8.4-10.2); CREATININE, SERUM 1.79 mg/dL (0.57-1.11); MAGNESIUM 2.6 MG/DL (1.3-2.1); POTASSIUM 5.4 mmol/L (3.5-5.1)
[2020-03-03] MEDS: INSULIN LISPRO 100 UNIT/1 ML 3ML VIAL SQ SCH ×4 (08:48→20:51)
[2020-03-03] MEDS ORDERED: METHYLPREDNISOLONE SOD SUCC 40 MG/ML VIAL 1ML IV SCH (09:00)
[2020-03-03] MEDS: FLUCONAZOLE 100 MG TAB PO SCH (09:43)
[2020-03-03] MEDS: DOXYCYCLINE HYCLATE TABLET 100 MG TAB PO SCH ×2 (09:43→20:51)
[2020-03-03] MEDS: BALSAM PERU/CASTOR OIL 60 GM OINT...G. TP SCH (09:43)
[2020-03-03] MEDS: FUROSEMIDE INJ 10 MG/ML 4 ML VIAL IV SCH ×3 (09:43→21:02)
[2020-03-03] MEDS: METOPROLOL TARTRATE 50 MG TAB PO SCH ×2 (09:43→16:52)
[2020-03-03] MEDS: PREDNISONE 10 MG TAB PO SCH (09:43)
[2020-03-03] MEDS: AMMONIUM LACTATE 12% LOTION 225GM BTL TOP SCH ×2 (09:43→16:52)
[2020-03-03] MEDS ORDERED: SOD POLYSTYRENE SULFONATE SUSP 15 GM/60 ML BTL PR ONE (10:45)
[2020-03-03] MEDS ORDERED: ACETAZOLAMIDE 250 MG TAB PO ONE (11:15)
[2020-03-04] VITALS (8 sets, daily range): BP systolic 128–166; BP diastolic 62–104
[2020-03-04] MEDS: ALBUTEROL/IPRATROPIUM 3 ML NEB NEB SCH ×5 (02:55→20:05)
[2020-03-04] MEDS: FLECAINIDE ACETATE 100 MG TAB PO SCH ×2 (04:38→17:50)
[2020-03-04 04:54] LABS: BASOPHILS % 0.1 % (0.0-1.0); EOSINOPHILS # (AUTO) 0.1 (0.0-0.4); EOSINOPHILS % 0.7 % (0.0-6.0); HEMATOCRIT 29.6 % (34.2-44.1); HEMOGLOBIN 8.8 g/dL (12.0-16.0); LYMPHOCYTES # (AUTO) 0.6 (1.0-3.2); MEAN CORPUSCULAR HEMOGLOBIN 27.8 pg (28-32); MEAN CORPUSCULAR HGB CONC 29.7 g/dL (31-35); MEAN CORPUSCULAR VOLUME 93.4 fL (81-99); MONOCYTES # (AUTO) 1.1 (0.2-0.8); MONOCYTES % 15.4 % (4.4-11.3); NEUTROPHILS # (AUTO) 5.3 (2.1-6.9); NEUTROPHILS % 74.4 % (38.7-80.0); PLATELET COUNT 212 x10e3/uL (140-360); RED BLOOD COUNT 3.17 x10e6/uL (3.6-5.1)
[2020-03-04 05:32] LABS: ALBUMIN 2.7 g/dL (3.5-5.0); ALBUMIN/GLOBULIN RATIO 0.7 (0.8-2.0); ANION GAP 12.2 mmol/L (8-16); CALCIUM 8.7 mg/dL (8.4-10.2); CREATININE, SERUM 1.71 mg/dL (0.57-1.11); POTASSIUM 4.2 mmol/L (3.5-5.1)
[2020-03-04] MEDS: CEFEPIME 1GM/NS 0.9% 50 ML 50 ML IV SCH ×2 (05:41→17:04)
[2020-03-04] MEDS: ENOXAPARIN SODIUM INJ 100 MG/ML SYR SC SCH ×2 (05:41→17:04)
[2020-03-04] MEDS: INSULIN LISPRO 100 UNIT/1 ML 3ML VIAL SQ SCH ×4 (07:30→20:50)
[2020-03-04] MEDS: METOPROLOL TARTRATE 50 MG TAB PO SCH ×2 (08:13→16:39)
[2020-03-04] MEDS: BALSAM PERU/CASTOR OIL 60 GM OINT...G. TP SCH (08:13)
[2020-03-04] MEDS: FLUCONAZOLE 100 MG TAB PO SCH (08:13)
[2020-03-04] MEDS: PREDNISONE 10 MG TAB PO SCH (08:13)
[2020-03-04] MEDS: AMMONIUM LACTATE 12% LOTION 225GM BTL TOP SCH ×2 (08:13→16:39)
[2020-03-04] MEDS: FUROSEMIDE INJ 10 MG/ML 4 ML VIAL IV SCH ×2 (08:13→13:28)
[2020-03-04] MEDS: DOXYCYCLINE HYCLATE TABLET 100 MG TAB PO SCH ×2 (08:13→21:00)
[2020-03-04] MEDS ORDERED: ACETAZOLAMIDE 250 MG TAB PO NR (09:15)
[2020-03-04] MEDS ORDERED: SODIUM CHLORIDE 0.9% 250ML 250 ML ONE (16:56)
[2020-03-05] VITALS (7 sets, daily range): BP systolic 107–135; BP diastolic 49–75
[2020-03-05] MEDS: ALBUTEROL/IPRATROPIUM 3 ML NEB NEB SCH ×6 (00:25→23:45)
[2020-03-05] MEDS: FLECAINIDE ACETATE 100 MG TAB PO SCH (05:00)
[2020-03-05] MEDS ORDERED: SODIUM CHLORIDE 0.9% 250ML 250 ML ONE (05:30)
[2020-03-05] MEDS: ENOXAPARIN SODIUM INJ 100 MG/ML SYR SC SCH (05:32)
[2020-03-05] MEDS: CEFEPIME 1GM/NS 0.9% 50 ML 50 ML IV SCH ×2 (05:32→17:00)
[2020-03-05] MEDS: INSULIN LISPRO 100 UNIT/1 ML 3ML VIAL SQ SCH ×4 (07:30→19:49)
[2020-03-05] MEDS: DOXYCYCLINE HYCLATE TABLET 100 MG TAB PO SCH ×2 (08:54→20:00)
[2020-03-05] MEDS: FLUCONAZOLE 100 MG TAB PO SCH (08:54)
[2020-03-05] MEDS: FUROSEMIDE INJ 10 MG/ML 4 ML VIAL IV SCH ×2 (08:54→12:13)
[2020-03-05] MEDS: METOPROLOL TARTRATE 50 MG TAB PO SCH ×2 (08:54→17:00)
[2020-03-05] MEDS: AMMONIUM LACTATE 12% LOTION 225GM BTL TOP SCH ×2 (09:01→17:00)
[2020-03-05] MEDS: BALSAM PERU/CASTOR OIL 60 GM OINT...G. TP SCH (09:58)
[2020-03-05] MEDS: APIXABAN 5 MG TABLET PO SCH (17:00)
[2020-03-06] VITALS (8 sets, daily range): BP systolic 109–135; BP diastolic 49–62
[2020-03-06] MEDS: ALBUTEROL/IPRATROPIUM 3 ML NEB NEB SCH ×6 (02:25→23:30)
[2020-03-06] MEDS: CEFEPIME 1GM/NS 0.9% 50 ML 50 ML IV SCH ×2 (05:31→17:51)
[2020-03-06 06:12] LABS: BASOPHILS % 0.2 % (0.0-1.0); EOSINOPHILS # (AUTO) 0.6 (0.0-0.4); EOSINOPHILS % 6.3 % (0.0-6.0); HEMATOCRIT 30.6 % (34.2-44.1); HEMOGLOBIN 8.8 g/dL (12.0-16.0); LYMPHOCYTES # (AUTO) 0.6 (1.0-3.2); LYMPHOCYTES % 6.2 % (18.0-39.1); MEAN CORPUSCULAR HEMOGLOBIN 26.9 pg (28-32); MEAN CORPUSCULAR HGB CONC 28.8 g/dL (31-35); MEAN CORPUSCULAR VOLUME 93.6 fL (81-99); MONOCYTES # (AUTO) 1.3 (0.2-0.8); MONOCYTES % 13.7 % (4.4-11.3); NEUTROPHILS # (AUTO) 6.7 (2.1-6.9); NEUTROPHILS % 73.3 % (38.7-80.0); PLATELET COUNT 164 x10e3/uL (140-360); RED BLOOD COUNT 3.27 x10e6/uL (3.6-5.1); RED CELL DISTRIBUTION WIDTH 14.8 % (11.7-14.4)
[2020-03-06 06:44] LABS: ALBUMIN 2.6 g/dL (3.5-5.0); ALBUMIN/GLOBULIN RATIO 0.7 (0.8-2.0); CALCIUM 8.2 mg/dL (8.4-10.2); CREATININE, SERUM 1.33 mg/dL (0.57-1.11)
[2020-03-06] MEDS: INSULIN LISPRO 100 UNIT/1 ML 3ML VIAL SQ SCH ×4 (07:30→21:00)
[2020-03-06] MEDS: APIXABAN 5 MG TABLET PO SCH ×2 (07:55→16:35)
[2020-03-06] MEDS: DOXYCYCLINE HYCLATE TABLET 100 MG TAB PO SCH ×2 (07:56→21:00)
[2020-03-06] MEDS: FUROSEMIDE INJ 10 MG/ML 4 ML VIAL IV SCH ×2 (07:56→12:08)
[2020-03-06] MEDS: FLUCONAZOLE 100 MG TAB PO SCH (07:56)
[2020-03-06] MEDS: AMMONIUM LACTATE 12% LOTION 225GM BTL TOP SCH ×2 (07:56→16:34)
[2020-03-06] MEDS: BALSAM PERU/CASTOR OIL 60 GM OINT...G. TP SCH (07:56)
[2020-03-06] MEDS: METOPROLOL TARTRATE 50 MG TAB PO SCH ×2 (08:26→16:34)
[2020-03-07] VITALS (8 sets, daily range): BP systolic 114–129; BP diastolic 48–73
[2020-03-07] MEDS: ALBUTEROL/IPRATROPIUM 3 ML NEB NEB SCH ×6 (02:55→23:00)
[2020-03-07] MEDS: CEFEPIME 1GM/NS 0.9% 50 ML 50 ML IV SCH ×2 (06:00→17:00)
[2020-03-07] MEDS: INSULIN LISPRO 100 UNIT/1 ML 3ML VIAL SQ SCH ×4 (07:30→21:30)
[2020-03-07] MEDS: FLUCONAZOLE 100 MG TAB PO SCH (08:41)
[2020-03-07] MEDS: FUROSEMIDE INJ 10 MG/ML 4 ML VIAL IV SCH ×2 (08:41→12:13)
[2020-03-07] MEDS: APIXABAN 5 MG TABLET PO SCH ×2 (08:41→17:00)
[2020-03-07] MEDS: DOXYCYCLINE HYCLATE TABLET 100 MG TAB PO SCH ×2 (08:42→21:30)
[2020-03-07] MEDS: METOPROLOL TARTRATE 50 MG TAB PO SCH ×2 (08:42→17:00)
[2020-03-07] MEDS: BALSAM PERU/CASTOR OIL 60 GM OINT...G. TP SCH (08:42)
[2020-03-07] MEDS: AMMONIUM LACTATE 12% LOTION 225GM BTL TOP SCH ×2 (08:42→17:00)
[2020-03-07] MEDS ORDERED: ACETAZOLAMIDE 250 MG TAB PO NR (11:15)
[2020-03-08] VITALS (8 sets, daily range): BP systolic 97–126; BP diastolic 51–67
[2020-03-08] MEDS: ALBUTEROL/IPRATROPIUM 3 ML NEB NEB SCH ×6 (03:00→23:00)
[2020-03-08] MEDS: CEFEPIME 1GM/NS 0.9% 50 ML 50 ML IV SCH ×2 (06:00→17:01)
[2020-03-08] MEDS: INSULIN LISPRO 100 UNIT/1 ML 3ML VIAL SQ SCH ×4 (07:30→21:00)
[2020-03-08] MEDS: FUROSEMIDE INJ 10 MG/ML 4 ML VIAL IV SCH ×2 (08:40→12:56)
[2020-03-08] MEDS: FLUCONAZOLE 100 MG TAB PO SCH (08:40)
[2020-03-08] MEDS: METOPROLOL TARTRATE 50 MG TAB PO SCH ×2 (08:40→17:00)
[2020-03-08] MEDS: APIXABAN 5 MG TABLET PO SCH ×2 (08:40→17:00)
[2020-03-08] MEDS: BALSAM PERU/CASTOR OIL 60 GM OINT...G. TP SCH (08:41)
[2020-03-08] MEDS: AMMONIUM LACTATE 12% LOTION 225GM BTL TOP SCH ×2 (08:41→17:01)
[2020-03-08] MEDS: DOXYCYCLINE HYCLATE TABLET 100 MG TAB PO SCH (08:41)
[2020-03-09] VITALS (7 sets, daily range): BP systolic 95–146; BP diastolic 51–87
[2020-03-09] MEDS: TRAMADOL HCL 50 MG TAB PO PRN (01:05)
[2020-03-09] MEDS: CEFEPIME 1GM/NS 0.9% 50 ML 50 ML IV SCH ×2 (05:16→18:07)
[2020-03-09 05:20] LABS: BASOPHILS % 0.3 % (0.0-1.0); EOSINOPHILS # (AUTO) 0.3 (0.0-0.4); EOSINOPHILS % 2.5 % (0.0-6.0); HEMATOCRIT 29.6 % (34.2-44.1); HEMOGLOBIN 8.5 g/dL (12.0-16.0); LYMPHOCYTES # (AUTO) 0.6 (1.0-3.2); LYMPHOCYTES % 4.6 % (18.0-39.1); MEAN CORPUSCULAR HEMOGLOBIN 27.1 pg (28-32); MEAN CORPUSCULAR HGB CONC 28.7 g/dL (31-35); MEAN CORPUSCULAR VOLUME 94.3 fL (81-99); MONOCYTES # (AUTO) 1.4 (0.2-0.8); MONOCYTES % 11.1 % (4.4-11.3); NEUTROPHILS # (AUTO) 10.5 (2.1-6.9); NEUTROPHILS % 80.8 % (38.7-80.0); PLATELET COUNT 162 x10e3/uL (140-360); RED BLOOD COUNT 3.14 x10e6/uL (3.6-5.1); RED CELL DISTRIBUTION WIDTH 14.8 % (11.7-14.4)
[2020-03-09 05:53] LABS: ALBUMIN 2.3 g/dL (3.5-5.0); ALBUMIN/GLOBULIN RATIO 0.7 (0.8-2.0); ANION GAP 11.2 mmol/L (8-16); CALCIUM 8.4 mg/dL (8.4-10.2); CREATININE, SERUM 1.54 mg/dL (0.57-1.11); MAGNESIUM 1.8 MG/DL (1.3-2.1); POTASSIUM 4.2 mmol/L (3.5-5.1)
[2020-03-09] MEDS: ALBUTEROL/IPRATROPIUM 3 ML NEB NEB SCH ×5 (06:43→23:20)
[2020-03-09] MEDS: INSULIN LISPRO 100 UNIT/1 ML 3ML VIAL SQ SCH ×4 (07:30→21:00)
[2020-03-09] MEDS: FLUCONAZOLE 100 MG TAB PO SCH (09:20)
[2020-03-09] MEDS: METOPROLOL TARTRATE 50 MG TAB PO SCH ×2 (09:20→17:55)
[2020-03-09] MEDS: FUROSEMIDE INJ 10 MG/ML 4 ML VIAL IV SCH ×2 (09:20→12:30)
[2020-03-09] MEDS: APIXABAN 5 MG TABLET PO SCH ×2 (09:20→17:55)
[2020-03-09] MEDS: BALSAM PERU/CASTOR OIL 60 GM OINT...G. TP SCH (10:50)
[2020-03-09] MEDS: AMMONIUM LACTATE 12% LOTION 225GM BTL TOP SCH ×2 (10:50→17:55)
[2020-03-09] MEDS: NYSTATIN 15 GM POWDER UD BTL TOP PRN (10:50)
[2020-03-09 14:01] LABS: ABG HCO3 41 mmol/L (22-26); ABG PCO2 80 mmHg (35-45); ABG PO2 56 mmHg (80-105); ABG TCO2 43
[2020-03-10] VITALS: BP 94/65
[2020-03-10] MEDS: TRAMADOL HCL 50 MG TAB PO PRN ×2 (02:09→12:10)
[2020-03-10 04:00] VITALS: BP 109/66
[2020-03-10] MEDS: CEFEPIME 1GM/NS 0.9% 50 ML 50 ML IV SCH (05:20)
[2020-03-10] MEDS: INSULIN LISPRO 100 UNIT/1 ML 3ML VIAL SQ SCH ×2 (07:30→11:30)
[2020-03-10 07:35] VITALS: BP 102/78
[2020-03-10] MEDS: ALBUTEROL/IPRATROPIUM 3 ML NEB NEB SCH ×3 (07:37→15:05)
[2020-03-10] MEDS: FUROSEMIDE INJ 10 MG/ML 4 ML VIAL IV SCH ×2 (08:00→12:33)
[2020-03-10 08:19] VITALS: BP 102/78
[2020-03-10] MEDS: METOPROLOL TARTRATE 50 MG TAB PO SCH (09:18)
[2020-03-10] MEDS: APIXABAN 5 MG TABLET PO SCH (09:18)
[2020-03-10] MEDS: AMMONIUM LACTATE 12% LOTION 225GM BTL TOP SCH (10:00)
[2020-03-10] MEDS: BALSAM PERU/CASTOR OIL 60 GM OINT...G. TP SCH (12:04)
[2020-03-10 12:20] VITALS: BP 105/46
[2020-03-10] MEDS: NYSTATIN 15 GM POWDER UD BTL TOP PRN (13:50)
[2020-03-10 14:00] LABS: BASOPHILS % 0.3 % (0.0-1.0); EOSINOPHILS # (AUTO) 0.3 (0.0-0.4); EOSINOPHILS % 2.9 % (0.0-6.0); HEMATOCRIT 30.8 % (34.2-44.1); HEMOGLOBIN 8.7 g/dL (12.0-16.0); LYMPHOCYTES # (AUTO) 0.7 (1.0-3.2); LYMPHOCYTES % 6.4 % (18.0-39.1); MEAN CORPUSCULAR HEMOGLOBIN 26.8 pg (28-32); MEAN CORPUSCULAR HGB CONC 28.2 g/dL (31-35); MEAN CORPUSCULAR VOLUME 94.8 fL (81-99); MONOCYTES # (AUTO) 1.6 (0.2-0.8); MONOCYTES % 13.6 % (4.4-11.3); NEUTROPHILS # (AUTO) 8.7 (2.1-6.9); NEUTROPHILS % 75.3 % (38.7-80.0); PLATELET COUNT 208 x10e3/uL (140-360); RED BLOOD COUNT 3.25 x10e6/uL (3.6-5.1); RED CELL DISTRIBUTION WIDTH 15.3 % (11.7-14.4)
[2020-03-10 14:24] LABS: ANION GAP 19.5 mmol/L (8-16); CALCIUM 8.5 mg/dL (8.4-10.2); CREATININE, SERUM 2.54 mg/dL (0.57-1.11); POTASSIUM 5.5 mmol/L (3.5-5.1)
[2020-03-10] MEDS ORDERED: EPINEPHRINE HCL SYRINGE ONE (15:03)
[2020-03-10] MEDS ORDERED: CALCIUM CHLORIDE 10% 1.36 MEQ/ML 10ML SYR IV ONE (15:03)
[2020-03-10] MEDS ORDERED: AMIODARONE HCL INJ 150MG/3ML ONE (15:03)
[2020-03-10] MEDS ORDERED: SODIUM CHLORIDE FLUSH 10 ML SYR ONE (15:03)
[2020-03-10] MEDS ORDERED: ATROPINE SULFATE 0.1 MG/ML 10ML SYR ONE (15:03)
[2020-03-10] MEDS ORDERED: SODIUM BICARBONATE 8.4% INJ 50 ML SYR ONE (15:03)
[2020-03-10] MEDS ORDERED: DOPAmine/D5W 1.6 MG/ML 400 MG/250ML PREMIX IV ONE (15:03)
[2020-03-10 15:48] VITALS: BP 107/66
[2020-03-10] MEDS ORDERED: SODIUM CHLORIDE 0.9% 1000ML 1,000 ML ONE (18:41)
== END 2020-03-10 23:09 | disposition expired | DRG 208 ==
LOC: ER 07:49 → ERHOLD 08:58 → IMCU 02-29 15:31 → MED/SURG3 03-04 11:03
PROVIDERS: ADMIT Internal Medicine; ATTEND Internal Medicine
PROC: 02HV33Z Insertion of Infusion Device into Superior Vena Cava, Percutaneous Approach (ICD-10-PCS; principal; 2020-03-01)
PROC: 5A1935Z Respiratory Ventilation, Less than 24 Consecutive Hours (ICD-10-PCS; 2020-03-10)
PROC: 0BH17EZ Insertion of Endotracheal Airway into Trachea, Via Natural or Artificial Opening (ICD-10-PCS; 2020-03-10)
DX: J96.22 Acute and chronic respiratory failure with hypercapnia (principal); I50.23 Acute on chronic systolic (congestive) heart failure; G93.41 Metabolic encephalopathy; I21.9 Acute myocardial infarction, unspecified; I13.0 Hypertensive heart and chronic kidney disease with heart failure and stage 1 through stage 4 chronic kidney disease, or unspecified chronic kidney disease; Z68.41 Body mass index [BMI] 40.0-44.9, adult; N39.0 Urinary tract infection, site not specified; N17.9 Acute kidney failure, unspecified; I46.8 Cardiac arrest due to other underlying condition; J96.21 Acute and chronic respiratory failure with hypoxia; E11.22 Type 2 diabetes mellitus with diabetic chronic kidney disease; E66.01 Morbid (severe) obesity due to excess calories; D64.9 Anemia, unspecified; N18.30 Chronic kidney disease, stage 3 unspecified; Z86.718 Personal history of other venous thrombosis and embolism; Z86.711 Personal history of pulmonary embolism; Z79.01 Long term (current) use of anticoagulants; Z20.822 Contact with and (suspected) exposure to COVID-19; Z99.81 Dependence on supplemental oxygen; G47.33 Obstructive sleep apnea (adult) (pediatric); E87.5 Hyperkalemia; M25.561 Pain in right knee; W19.XXXA Unspecified fall, initial encounter
CPT/HCPCS: 36415; 36569; 36600; 71045; 71250; 76604; 80048; 80053; 81001; 82550; 82553; 82805; 82948; 83605; 83735; 83880; 84443; 84484; 85025; 85610; 85730; 87040; 87071; 87086; 87205; 92950; 93005; 93306; 94002; 94640; 94660; 96372; 97139; 99251; 99285; J0171; J0692; J1650; J1940; J2920; J3370; J7030; J7050; J7512; U0002